=== PATIENT | female | born 1965 | race Caucasian/White ===

== ENCOUNTER 2016-12-23 20:38 | Emergency (ER) | payer MEDICAID ==
[~2016-12-23] VITALS: Ht 175.3 cm; Wt 125.2 kg
[~2016-12-23 20:38] MED LIST: ALPARAZOLAM0.5 MG PO; ASPIRIN ADULT L81 M2 PO; BENZONATATE100 MG PO; CARVEDILOL12.5 MG PO; CARVEDILOL6.25 MG PO; CIPRO 500MG TA500 MG PO; DICLOFENAC 50MG50 MG PO; DICYCLOMINE HYD20 MG PO; ESTRADIOL1 M1 PO; ETODOLAC400 MG PO; FLAGYL500 M1 PO; FUROSEMIDE40 MG PO; GABAPENTIN 600600 MG PO; HYDROCHLOROTHIA25 M1 PO; IMDUR 60MG. TAB60 MG PO; LISINOPRIL 5MG T5 MG PO; NON-ASPIRIN EX500 MG PO; NORCO 325 MG-51 TAB PO; OMEPRAZOLE40 MG PO; OXYBUTYNIN10 MG PO; PRAVASTATIN 40M40 MG PO; PREDNISONE 20MG20 MG PO; ROBAXIN500 M1 PO; TOPROL XL 25MG25 MG PO; TRAMADOL50 M1 PO; TRAZADONE HYDR100 MG PO; VOLTAREN75 MG PO; ZOFRAN ODT4 MG PO; [UNRECOGNIZED DRUG - OTHER] PO
[2016-12-23 21:17] LABS: HEMOGLOBIN 12.9 g/dL (12.2-16.2); LYMPH % 25.3 % (10-50.0)
--- NOTE | 2016-12-23 21:51 | Emergency Room Report ---
History of Present Illness Time Seen by [id number] Presenting Problem in Triage Pt arrived:Walked Presenting Problem:LEFT SIDED BACK PAIN RADIATING INTO FLANK AREA, STARTED AROUND 5:30 TODAY. 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 N Clinical Suspician of Infection? N Mental Status: 1 - Regular (Normal Baseline) Sepsis Risk:Possible Sepsis Risk Have you (or family members/close friends) recently traveled outside the [place]? N If Yes, where/when: Have you had exposure to infectious disease within the past month? N TB? Other? Specify: Source patient, RN notes reviewed, family, old records Exam Limitations no limitations Comment one day hx of lt sided back pain with dec mobility and pain with mov with no trauma or fever and no rash Cardiac Chest Pain Chest pain indicative of cardiac No Timing/Duration this evening Severity moderate ALLERGIES Coded Allergies: acetaminophen (From Darvocet-N) (Severe, S-[id number]/THROAT 10/06/15) propoxyphene (From Darvocet-N) (Severe, E-[id number]-BLDO/THROAT 10/06/15) oxycodone (From PERCOCET) (Intermediate, I-RASH 03/15/16) levofloxacin (I-RASH 10/06/15) Home Medications Active Scripts DICLOFENAC SODIUM (Diclofenac 50MG) 50 MG PO BID #60 TAB Prov: 06/16/16 Methocarbamol (Robaxin) 500 MG PO BID #60 TAB Prov: 06/16/16 Dicyclomine Hcl (Bentyl 20mg Tab (Generic)) 20 MG PO TIDP PRN abdominal pain #12 TAB Prov: 10/24/16 Ondansetron (Zofran 4MG Odt) 4 MG PO Q8HP PRN NAUSEA AND VOMITING #10 ODT Prov: 10/24/16 Reported Medications LISINOPRIL (Lisinopril) 20 MG PO DAILY Oxybutynin Chloride (Oxybutynin Chloride ER) 10 MG PO DAILY Omeprazole (Omeprazole 40MG) 40 MG PO DAILY Furosemide (Furosemide 40MG) 40 MG PO BID ISOSORBIDE MONONITRATE (Isosorbide Mononitrate ER) 60 MG PO DAILY Estradiol 2 MG PO DAILY #30 Gabapentin (Gabapentin 600MG) 600 MG PO Q8 #90 Aspirin 81 MG PO DAILY PRAVASTATIN SODIUM (Pravastatin Sodium) 40 MG PO QHS Carvedilol 12.5 MG PO BID #60 History Medical History General CAD? No Angina: No IN: No Hypertension? Yes Hyperlipidemia? Yes CHF? No DVT? No PE? No COPD? Yes Asthma? No Anemia? No GERD? Yes Gastric ulcers? No GI Bleed? No Hernia? Yes Thyroid Problems? No Hypothyroidism? No CVA? Yes Seizures? No Diabetes? No Renal Insuffiency? No End Stage Renal Disease? No UTI? No Stones? No BPH? No GB Disease: No Nephritic Syndrome? No Asplenia? No Hepatitis? No Sickle Cell Disease? No Arthritis? Yes Migraines? Yes Cataracts? No Glaucoma? No MRSA? No HIV? No TB? No Anxiety? Yes Depression? Yes Cancer? Yes Site: CERVICAL More? 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 Respiratory denies cough, denies shortness of breath, denies wheezing Cardiovascular denies chest pain, denies palpitations, denies syncope Gastrointestinal denies abdominal pain, denies diarrhea, denies vomiting Genitourinary denies: dysuria, frequency, hesitancy, hematuria. Musculoskeletal see HPI, back pain, denies joint pain, denies joint swelling, muscle pain, denies neck pain Skin denies rash Psychiatric/Neurological denies headache, denies seizure Physical Exam Vital Signs Vital Signs Date Time Temp Pulse Resp B/P Pulse O2 O2 Flow FiO2 Ox Delivery Rate 12/237 20 12/24 2155 97.4 74 18 127/93 96 12/232 20 10/07 2041 97.5 101 22 135/98 99 - WBC >12,000 or <4,000 or 10% bands? 2 or more SIRS Criteria Met? B/P:127/93 MAP:110 Creatinine >2.0? UA output<0.5ml/kg/hr for 2 hrs? Platelet count >100,000? Lactate >2.0mmol/1? INR >1.2 or PTT > than 60 sec? Evidence of Organ Dysfunction? Provider documented clinical suspician of infection? N Sepsis Criteria Count: 2 Sepsis Risk: Possible Sepsis Risk General Appearance no apparent distress Eye Exam - bilateral eye PERRL, bilateral eye EOMI Ear, Nose, Throat normal ENT inspection Neck supple Respiratory Status No: respiratory distress. Lung Sounds bilateral: lungs clear. 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 No Results/Orders Laboratory Tests 12/23/160: Urine Color YELLOW, Urine Appearance SL CLOUDY, Urine pH 6.0, Ur Specific [place] 1.025, Urine Protein NEGATIVE, Urine Ketones NEGATIVE, Urine Blood NEGATIVE, Urine Nitrate NEGATIVE, Urine Bilirubin NEGATIVE, Urine Urobilinogen 0.2, Ur Leukocyte Esterase NEGATIVE, Urine WBC 3-5, Ur Squamous Epith Cells 10- 20, Amorphous Sediment 2+, Urine Mucus 4+, Urine Glucose NEGATIVE 12/23/162054: Sodium 140, Potassium 4.0, Chloride 106, Carbon Dioxide 26, BUN 19 H, Creatinine 1.2 H, Estimated Creat Clear 110, Estimated GFR (MDRD) 47 L, Glucose 158 H, Calcium 8.5, Total Bilirubin 0.3, AST 16, ALT 20, Alkaline Phosphatase 85, Total Protein 6.6, Albumin 3.3 L, Globulin 3.3 H, Albumin/ Globulin Ratio 1.0 L, WBC 8.1, RBC 4.45, Hgb 12.9, Hct 40.6, MCV 91.3, RDW 13.8 , Plt Count 169, MPV 9.0, Gran % 67.5, Gran # 5.5, Lymphocytes % 25.3, Monocytes % 4.3, Eosinophils % 2.6, Basophils % 0.3, Lymphocytes # 2.0, Monocytes # 0.4, Eosinophils # 0.2, Basophils # 0.0, PUBS MCHC 31.7 L, MCH 28.9 Current Medication Orders Sig/Konstantin Start time Last Medication Dose Route Stop Time Status Admin Promethazine HCl 0 .STK-MED ONE 12/23 2234 DC .ROUTE Sodium Chloride 25 ML .STK-MED ONE 12/23 2234 DC IV Hydromorphone HCl 0 .STK-MED ONE 12/23 2233 DCr .ROUTE Methylprednisolone 0 .STK-MED ONE 12/23 2233 DC Sodium Succinate .ROUTE Hydromorphone HCl 1 MG ONCE ONE 12/23 2229 DCr 12/23 IV 12/23 Methylprednisolone 125 MG ONCE ONE 12/23 2229 DC 12/23 Sodium Succinate IV 12/23 Promethazine HCl 12.5 MG ONCE ONE 12/23 2229 DC 12/23 IV 12/23 Sodium Chloride 25 ML ONCE ONE 12/23 2229 DC 12/23 IV 12/23 Ketorolac 30 MG ONCE ONE 12/23 2099 DC 12/23 Tromethamine IV 12/23 Ondansetron HCl 4 MG 12/23 2099 UNi IV Sodium Chloride 10 ML PRN PRN 12/23 2099 AC IV 12/24 2050 Sodium Chloride 1,000 ML .Q1H1M 12/23 2099 DC 12/23 IV 12/23 Sodium Chloride 10 ML PRN PRN 12/23 2099 AC IV 12/24 2052 Ketorolac 0 .STK-MED ONE 12/23 2058 DC Tromethamine .ROUTE Sodium Chloride 1,000 ML .STK-MED ONE 12/23 2053 DC IV Orders Procedure Date/time Status DIET-NOTHING BY MOUTH 12/[address] ABD & PELVIS W/O CONTRAST 12/[address] ABD/PELVIS REQ 12/23 2056 Active IV SALINE LOCK 12/23 2050 Active URINALYSIS/COMPLETE 12/23 2050 Complete CBC WITH AUTO DIFF 12/23 2050 Complete CHEM 12 PROFILE 12/23 2050 Complete XRAY/CT/US XRAY/CT/US CT abdomen, pelvis CT interpretation by discussed w/radiologist Time results known: 8 CT Results normal/NAD Departure Departure Time of Disposition 0002 Disposition DC Home or Self Care(routine) Clinical Impression Primary Impression: Lumbar pain with radiation down both legs Condition STABLE Referrals ARTHUR JOSE (Family) Patient Instructions DI for Low Back Pain Additional Instructions use meds and see pcp sunday or sunday Discharge Counseling Counseled pt/family regarding diagnosis, test results, medications/RX, follow up needs Prescriptions Current Visit Scripts Prednisone (Prednisone 20MG) 20 MG PO BID #10 TAB Cyclobenzaprine Hcl (Flexeril) 10 MG PO BID #14 TAB HYDROCODONE/ACETAMINOPHEN ([place] 5-325 Tablet) 1 TAB PO Q6HP PRN pain #10 TAB ED Critical Care Critical Care No at 0005
[2016-12-23 23:49] LABS: URINE BILIRUBIN - DIPSTICK NEGATIVE (NEG); URINE BLOOD NEGATIVE (NEG)
[2016-12-24] MEDS ORDERED: NORCO 325 MG-51 TAB PO (00:05)
[2016-12-24] MEDS ORDERED: PREDNISONE 20MG20 MG PO (00:05)
[2016-12-24] MEDS ORDERED: FLEXERIL10 MG PO (00:05)
[2016-12-24 00:29] VITALS: BP 138/72
--- NOTE | 2016-12-24 08:41 | RADIOLOGY REPORT PS360 ---
CT ABD PELVIS W/O CONTRAST COMPARISON: CT scan abdomen pelvis 10/24/2016 HISTORY: Abdominal pain and left lower back pain TECHNIQUE: Multiple axial scans obtained from hemidiaphragms the pelvic floor and were performed without IV or oral contrast. Sagittal and coronal reformats were evaluated as well. FINDINGS: The lower lung white are clear. The liver spleen stomach [place] gallbladder appear grossly normal. The adrenal glands are normal. The kidneys are normal size and there are no calculi and is no obstructive uropathy. Small bowel appears normal. The appendix is normal. There is moderate scattered stool in ascending and transverse colon. There is been a previous hysterectomy. Urinary bladder is grossly normal, there is no free fluid in the pelvis. There is a tiny umbilical hernia containing fat only. IMPRESSION: No acute abdominal or pelvic pathology identified, I agree the [facility] report.
--- OUTSIDE RECORDS SUMMARY | 2016-12-29 16:37 | External Medical Summary Rpt | CCD ---
Author Author , AMRITA Organization AMRITA Address Unknown Phone [email or web address] Providers Care Demand Inspector Name Role Phone NGOC BARRERA JR, Unavailable Unavailable NGOC BARRERA JR, J, Unavailable Unavailable Eliel WOODSON BEINEKE, BEINEKE Unavailable Unavailable BEINEKE SHREYA BEINEKE Unavailable Unavailable SHREYA FRANCOIS OLGA LIDIA, FRANCOIS Unavailable Unavailable OLGA LIDIA BESSON ILEANA, BESSON Unavailable Unavailable ILEANA [facility] Unavailable [facility]available [facility], [facility] LANDEROS, LANDEROS Unavailable Unavailable LANDEROS ALL, LANDEROS ALL Unavailable Unavailable [facility] Unavailable Unavailable [facility], [facility] MARY BRAGG, Unavailable Unavailable MARY BRAGG CALVO Unavailable Unavailable [facility] Unavailable Unavailable [facility], [facility] JEREMY PEREZ, Unavailable Unavailable JEREMY ARRIOLA CELLAROSI - YORBA Unavailable Unavailable PAT, CELLAROSI - YORBA PAT VALLE MALCOM, VALLE Unavailable Unavailable MALCOM VALLE MALCOM, VALLE Unavailable Unavailable MALCOM [facility], Unavailable Unavailable [facility] JOVEL, ALAN A, Unavailable Unavailable JOVEL, ALAN A [facility] Unavailable Unavailable [facility], [facility] FILIBERTO JR YANNI, FILIBERTO Unavailable Unavailable JR YANNI FILIBERTO JR YANNI, FILIBERTO Unavailable Unavailable JR YANNI ROSENDO, ROSENDO Unavailable Unavailable ROSENDO GARETH, Unavailable Unavailable ROSENDO GARETH GARETT II THO, GARETT II Unavailable Unavailable THO GAERTT, T, GARETT, T Unavailable Unavailable DEPA, MARTINEZ, DEPA, Unavailable Unavailable MARTINEZ CLEVELANDYLE BENJAMIN, LEDESMA BENJAMIN Unavailable Unavailable BAZAN, G T, BAZAN, G Unavailable Unavailable T FALLUJI EDIN, FALLUJI Unavailable Unavailable EDIN FALLUJI EDIN, FALLUJI Unavailable Unavailable EDIN FRYMAN, FRYMAN Unavailable Unavailable JR FORD FULLER, Unavailable Unavailable JR ANGEL LUIS, ANGEL LUIS Unavailable Unavailable ANGEL LUIS KARLA, ANGEL LUIS Unavailable Unavailable KARLA ANGEL LUIS KARLA, ANGEL LUIS Unavailable Unavailable KARLA ELIO R HARPEL MD, Unavailable Unavailable ELIO RODRIGUEZ MD SAVANNA RHO, SAVANNA Unavailable Unavailable RHO SAVANNA, FORREST G, Unavailable Unavailable SAVANNA, FORREST G SIMONA CLEARY, Unavailable Unavailable SIMONA CLEARY HARPEL, HARPEL Unavailable Unavailable HARPEL IS[facility], HARPEL Unavailable Unavailable [facility] Un[facility] Un[facility], [facility], Unavailable Unavailable [facility] HORMANN MAR, HORMANN Unavailable Unavailable [facility] Unavailable Unavailable SERVICES O, [facility] HOUSMAN YANNI, HOUSMAN Unavailable Unavailable YANNI FU-ZACHARY, Unavailable Unavailable ROSLYN, TANK-ZACHARY, ROSLYN [facility] Unavailable Unavailable [facility]ING [facility], [facility] Un[facility], [facility] ARREDONDO ILEANA, ARREDONDO ILEANA Unavailable Unavailable ULLOA MARGARET, ULLOA Unavailable Unavailable MARGARET MARCHINO ILEANA, Unavailable Unavailable MARCHINO ILEANA [facility], Unavailable Unavailable [facility], [facility]available Unavailable [facility] Unavailable Unavailable EMS, [facility], Unavailable Unavailable PLLC, [facility] PICKLESIMER JR GIULIA, Unavailable Unavailable PICKLESIMER JR GIULIA PICKLESIMER JR GIULIA, Unavailable Unavailable [facility] GIULIA KAMERON TOD, KAMERON TOD Unavailable Unavailable RENUSCH, RENUSCH Unavailable Unavailable [id number], Unavailable Unavailable [id number] BOO KAYDEN, Unavailable Unavailable [facility] DIRK MAT, Unavailable Unavailable DIR[facility] MAT SOKAN BAB, SOKAN BAB Unavailable Unavailable SHAKA FELISHA, SHKAA Unavailable Unavailable FELISHA [facility] Unavailable Unavailable [facility], [facility] Unavailable Unavailable [facility], [facility] Unavailable Unavailable [facility] SHREYA [facility] Unavailable Unavailable EMERGENCY PHYS, [facility] Unavailable Unavailable EMERGENCY PHYSI, [facility] ALFREDITO, ALFREIDTO Unavailable Unavailable ALFREDITO SHE, Unavailable Unavailable ALFREDITO SHE ALANIZ OLGA LIDIA, Unavailable Unavailable ALANIZ OLGA LIDIA ALANIZ OLGA LIDIA, Unavailable Unavailable ALANIZ OLGA LIDIA SWINEY PAT, SWINEY Unavailable Unavailable PAT SWINEY PAT, SWINEY Unavailable Unavailable PAT [facility] Unavailable Unavailable #[id number], [phone] Unavailable Unavailable [id number], Unavailable Unavailable [facility] ASIF SHANKAR, Unavailable Unavailable ASIF SHANKAR Purpose Continuity of Care Document - 09-17-2007 through 2016 Problems Code Diagnosis DOS Provider Status R1030 LOWER 11-02-2016 [facility] ABDOMINAL PHYSICIANS PAIN GROUP UNSPECIFIED I10 ESSENTIAL 10-24-2016 [facility] HYPERTENSIO INC N K219 GASTRO-ESOP 10-24-2016 [facility] DISEASE INC WITHOUT ESOPHAGITIS R1011 RIGHT UPPER 10-24-2016 [place] [facility] R1013 EPIGASTRIC 10-24-2016 [facility] R1031 RIGHT LOWER 10-24-2016 [facility] PAIN [facility] Z720 TOBACCO USE 10-24-2016 [facility] E039 HYPOTHYROID 10-16-2016 [facility] ISM [facility] UNSPECIFIED INC K588 OTHER 09-04-2016 [facility] IRRITABLE PHYSICIANS BOWEL GROUP SYNDROME R102 PELVIC AND 09-04-2016 [facility] PERINEAL PHYSICIANS PAIN GROUP M5136 OTH 06-16-2016 [place] [facility] RAL DISC IMAGING ASS DEGEN LUMBAR REGION M5442 LUMBAGO 06-16-2016 [facility] WITH PHYSICIANS, SCIATICA PLLC LEFT SIDE M545 LOW BACK 06-16-2016 [place] PAIN [facility]ICAL [facility] C541OZO SPRAIN 06-16-2016 [facility] LIGAMENTS PHYSICIANS, LUMBAR PLLC SPINE INITIAL ENCOUNTER Z7982 SHELTER 06-16-2016 [facility]RENT [facility] G03682 HORMONE 06-16-2016 [facility] REPLACEMENT [facility] THERAPY INC J87141 OTHER LONG 06-16-2016 [facility] TERM [facility] CURRENT INC DRUG THERAPY Z886 ALLERGY 06-16-2016 [facility] STATUS TO [facility] ANALGESIC INC AGENT STATUS Z889 ALLERGY 06-16-2016 [facility] STATUS UNS [facility] RX MEDS & INC BIOLOG SUBSTANC STS M5116 INTERVERTEB 06-03-2016 [facility] RAL DISC PHYSICIANS, D/O PLLC W/RADICULOP ATHY LUMB RGN M5416 RADICULOPAT 06-03-2016 [facility] HY LUMBAR [facility] REGION INC D6191AU CONTUSION 03-15-2016 [facility] OF LEFT PHYSICIANS, LOWER LEG PLLC INITIAL ENCOUNTER D98278 PERSONAL 03-15-2016 [facility] HISTORY OF [facility] NICOTINE INC DEPENDENCE N951 MENOPAUSAL 01-31-2016 [facility] PHYS[facility]ANS CLIMACTERIC GROUP STATES H109 UNSPECIFIED 12-16-2015 [facility] EMERGENCY CONJUNCTIVI PHYS TIS G4733 OBSTRUCTIVE 11-25-2015 [facility] ADULT MEDICAL PEDIATRIC EQUIPME E860 DEHYDRATION 11-17-2015 [facility], [facility] R05 COUGH 11-17-2015 [facility] R079 CHEST PAIN 11-17-2015 [place] [facility]PECIFIED [facility] N179 ACUTE 11-16-2015 [facility] FAILURE SERVICES O UNSPECIFIED [id number] TOXIC 11-16-2015 [facility]OSPITAL EFFECT OT MEDICINE TOBACCO & SERVICES O NICOTINE ACC INIT ENC G629 POLYNEUROPA 11-14-2015 [facility] J449 CHRONIC 11-14-2015 [facility] DISEASE UNS N170 ACUTE RENAL 11-14-2015 [facility] WITH HOSPITAL TUBULAR NECROSIS R110 NAUSEA 11-14-2015 [facility] T600FEZ HEAT 11-14-2015 [facility] UNSPECIFIED PHYSI INITIAL ENCOUNTER L732 HIDRADENITI 11-09-2015 [facility] S PHYSICIANS SUPPURATIVA GROUP N736 FEMALE 10-21-2015 [facility] PELVIC PHYSICIANS PERITONEAL GROUP ADHESIONS POSTINFECTI VE R1032 LEFT LOWER 10-18-2015 [facility] QUADRANT PHYSICIANS PAIN GROUP K5900 CONSTIPATIO 10-07-2015 [facility] MEDICAL UNSPECIFIED IMAGING ASS R109 UNSPECIFIED 10-07-2015 [facility] ABDOMINAL ANESTH OF PAIN THE BLUE D481 NEOPLASM 08-05-2015 ELIO RODRIGUEZ MD [facility] CONNCTIVE & OTH SOFT TISS I083 COMB 08-03-2015 [facility] RHEUMAT D/O SERV [facility] FOUND[facility] AORTC & TRICUSPID VALVES I350 NONRHEUMATI 08-03-2015 [facility] [place] A[facility]IC [facility] VALVE INC STENOSIS N761 SUBACUTE 07-05-2015 [facility] AND CHRONIC PHYSICIANS VAGINITIS GROUP V58271 ENCOUNTER 07-05-2015 [facility] PREPROCEDUR INC AL LABORATORY EXAM E34328 ENCOUNTER 05-13-2015 ELIO Fry CHEESE BLENDER EXAM JENNIFER ESQUIVEL GENERAL RTN W/O ABNORMAL FIND Z1212 ENCOUNTER 05-13-2015 ELIO RORDIGUEZ MD MALIGNANT NEOPLASM RECTUM E785 HYPERLIPIDE 05-11-2015 [facility] QUINTIN PHYSICIANS UNSPECIFIED GROUP G4730 SLEEP APNEA 05-11-2015 [facility] PHYSICIANS UNSPECIFIED GROUP I119 HYPERTENSIV 05-11-2015 [facility] E HEART PHYSICIANS DISEASE GROUP WITHOUT HEART FAILURE I209 ANGINA 05-11-2015 [facility] PECTORIS PHYSICIANS UNSPECIFIED GROUP I2510 ASHD KONGIGANAK 05-11-2015 [facility] 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 GROUP ANGINA PECTORIS 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 R0600 DYSPNEA 05-11-2015 [facility] UNSPECIFIED PHYSICIANS GROUP E669 OBESITY 04-30-2015 [facility] UNSPECIFIED [facility] INC R9439 ABNORMAL 04-30-2015 [facility] RESULT OT [facility] CARDIOVASCU INC LR FUNCTION STUDY Z6841 BODY MASS 04-30-2015 [facility] INDEX BMI [facility] 40.0-44.9 INC ADULT S61174 ENCOUNTER 04-28-2015 [facility] FOR OTHER MEM [facility]OS[facility] PREPROCEDUR INC AL EXAMINATION K529 NONINFECTIV 04-05-2015 [facility] E PHYSICIANS, GASTROENTER PLLC ITIS & COLITIS UNS R0683 SNORING 04-05-2015 [facility] INC R5383 OTHER 04-05-2015 [facility] FATIGUE [facility] INC I712 THORACIC 04-01-2015 [facility] AORTIC SERV ANEURYSM FOUNDATION WITHOUT RUPTURE N8320 UNSPECIFIED 03-23-2015 [place] OVARIAN [facility]ICAL CYSTS IMAGING ASS N644 MASTODYNIA 03-05-2015 [facility] R928 OTH ABNORM 03-05-2015 [place] & MEDICAL INCONCLUSIV IMAGING ASS E FIND ON DX IMAG BREAST D164 BENIGN 01-11-2015 [facility] NEOPLASM OF PHYSICIANS BONES OF GROUP SKULL AND FACE N6452 NIPPLE 01-11-2015 [facility] DISCHARGE PHYSICIANS GROUP M899 DISORDER OF 12-18-2014 [place] BONE MEDICAL UNSPECIFIED IMAGING ASS R220 LOCALIZED 12-18-2014 [place] SWELLING MEDICAL MASS AND IMAGING ASS LUMP HEAD 217 BENIGN 11-26-2014 [facility] NEOPLASM OF PHYSICIANS BREAST GROUP 6101 DIFFUSE 11-26-2014 [facility] MASTOPATHY 6102 FIBROADENOS 11-26-2014 [facility] IS OF LLC BREAST 84584 OTHER SIGN 11-26-2014 [facility]UN[facility] AND SYMPTOM ANESTH OF IN BREAST THE BLUE 87945 OTHER 11-26-2014 [facility] SPECIFIED LLC DISORDERS OF BREAST 7062 SEBACEOUS 11-26-2014 [facility] CYST ANESTH OF THE BLUE 7820 DISTURBANCE 11-16-2014 [facility] OF SKIN PHYSICIANS SENSATION GROUP 5368 DYSPEPSIA&O 11-07-2014 [facility] THER SPEC N EMERGENCY DISORDERS PHYS FUNCTION STOMACH 01268 ABDOMINAL 11-07-2014 [facility] PAIN, LEFT N EMERGENCY UPPER PHYS QUADRANT 81911 OBST 10-23-2014 [facility] CHRONIC N EMERGENCY BRONCHITIS PHYS W/ACUTE BRONCHITIS 94705 SHORTNESS 10-23-2014 [facility] OF BREATH RADIOLOGY 4019 UNSPECIFIED 10-19-2014 [facility] ESSENTIAL [facility] N 462 ACUTE 10-19-2014 [facility] PHARYNGITIS [facility] 46748 ASTHMA, 10-19-2014 [facility] UNSPECIFIED N EMERGENCY , PHYS UNSPECIFIED STATUS 27553 WHEEZING 10-19-2014 [facility] N EMERGENCY PHYS 59651 CHEST PAIN 10-19-2014 [facility] UNSPECIFIED [facility] V145 PERSONAL 10-19-2014 [facility] HISTORY OF COMMUNITY ALLERGY TO HOSPITAL NARCOTIC AGENT V146 PERSONAL 10-19-2014 [facility]ISTORY OF COMM[facility]ITY ALLERGY TO HOSPITAL ANALGESIC AGENT V5866 LONG-TERM 10-19-2014 [facility] USE OF [facility] V5869 LONG-TERM 10-19-2014 [place] (CURRENT) COMMUNITY USE OF HOSPITAL OTHER MEDICATIONS 6110 INFLAMMATOR 09-24-2014 [facility] Y DISEASE PHYSICIANS OF BREAST GROUP 58126 MASTODYNIA 07-23-2014 [facility] 20275 OTHER 07-23-2014 [place] ABNORMAL MEDICAL FINDING IMAGING ASS RADIOLOGICA L EXAM BREAST 84997 PAIN IN 07-20-2014 [facility] JOINT PHYSICIANS PELVIC GROUP REGION AND THIGH 99843 HIDRADENITI 05-15-2014 [facility] 98888 OBESITY, 04-21-2014 [facility] UNSPECIFIED PHYSICIANS GROUP 7243 SCIATICA 04-21-2014 [facility] PHYSICIANS GROUP 4241 AORTIC 04-14-2014 [facility] VALVE [facility] DISORDERS INC 55565 OCCLUSION&S 04-14-2014 [facility] CAROTID ART CONSULTANTS W/O O MENTION INFARCT 496 CHRONIC 04-14-2014 [facility] AIRWAY LAR OBSTRUCTION CONSULTANTS NEC O 4259 UNSPECIFIED 04-09-2014 [facility] SECONDARY [facility] CARDIOMYOPA INC THY 4280 CONGESTIVE 04-09-2014 [facility] HEART [facility] FAILURE INC UNSPECIFIED 4359 UNSPECIFIED 04-09-2014 [place] TRANSIENT MEDICAL CEREBRAL IMAGING ASS ISCHEMIA 490 BRONCHITIS 04-09-2014 [facility] NOT [facility] SPECIFIED INC ACUTE OR CHRONIC 69855 SOLITARY 04-09-2014 [place] PULMONARY MEDICAL NODULE IMAGING ASS V1254 PERSONAL HX 04-09-2014 [facility] TIA & CI [facility] W/O INC RESIDUAL DEFICITS V198 FAMILY 04-09-2014 [facility] HISTORY OF [facility] OTHER INC CONDITION 4240 MITRAL 04-03-2014 [facility] DISORDERS [facility]OUNDATION 4242 TRICUSPID 04-03-2014 [facility]ORD[facility] SPEC NONRHEUMATI C 19986 OTHER 04-03-2014 [facility] SPECIFIED [facility] CONGENITAL INC ANOMALY HEART OTHER 98275 OTHER 04-03-2014 [facility] MEDICAL DYSPNEA AND SERV FOUNDATION RESPIRATORY ABNORMALITI ES V1749 FAMILY 03-31-2014 [facility] OTHER INC CARDIOVASCU LAR DISEASES 87642 CONGENITAL 03-24-2014 [facility] [place] OF L[place] [address] UNSPECIFIED 02-27-2014 [facility] INFECTIVE N EMERGENCY OTITIS PHYS EXTERNA 7245 UNSPECIFIED 02-25-2014 [facility] BACKACHE PHYSICIANS GROUP 13919 UNS ADVRS 02-25-2014 [facility] EFF OT RX PHYSICIANS MEDICINAL&B GROUP IOLOGICAL SBSTNC 3670 HYPERMETROP 02-23-2014 [facility] 6822 CELLULITIS 01-21-2014 [facility] AND ABSCESS N EMERGENCY OF TRUNK PHYS 63739 PAIN IN 12-29-2013 [facility] JOINT, SITE PHYSICIANS GROUP UNSPECIFIED 7852 UNDIAGNOSED 10-02-2013 [facility] EDIN CARDIAC MURMURS 1120 CANDIDIASIS 07-18-2013 [facility] OF MOUTH [facility] INC 7296 RESIDUAL 07-18-2013 ANGEL LUIS MIC FOREIGN BODY IN SOFT TISSUE 586 UNSPECIFIED 07-11-2013 [facility] RENAL [facility] 6824 CELLULITIS& 07-11-2013 SW[facility] PAT ABSCESS OF HAND EXCEPT FINGERS&MICHELLE MB 9146 HND NO 07-11-2013 [facility] PAT FINGR SUP FB W/O GRANT OPN WND&W/O INF 9147 HAND NO 07-11-2013 [facility] F[facility]R [facility] SUP FB W/O HOSPITAL GRANT OPN WOUND INF E915 FOREIGN 07-11-2013 SW[facility] PAT BODY ACCIDENTALL Y ENTERING OTHER ORIFICE 6250 DYSPAREUNIA 07-03-2013 [facility] MALCOM 6259 UNSPEC 07-03-2013 [facility] MALCOM SYMPTOM ASSOC W/FEMALE GENITAL ORGANS 6273 POSTMENOPAU 07-03-2013 [facility] MALCOM FREDRICK ATROPHIC VAGINITIS V7231 ROUTINE 07-03-2013 [facility] GIULIA AL EXAMINATION 24957 COR 06-19-2013 FILIBERTO HOFFMANN ATHEROSLERO YANNI UNSPEC TYPE VESSEL KONGIGANAK/NEW T 95482 UNSPECIFIED 06-19-2013 FILIBERTO HOFFMANN YANNI ARTHROPATHY SITE UNSPECIFIED 98850 MIXED 06-19-2013 FILIBERTO HOFFMANN INCONTINENC YANNI E URGE AND STRESS 23670 ABDOMINAL 05-03-2013 [facility] PAIN RIGHT OLGA LIDIA LOWER QUADRANT 32785 PAINFUL 04-19-2013 [facility] PAT RESPIRATION 2449 UNSPECIFIED 08-06-2008 SCHULSTAD, KAYDEN HYPOTHYROID ISM 6823 CELLULITIS 08-06-2008 SCHULSTAD, AND ABSCESS KAYDEN OF UPPER ARM AND FOREARM 7241 PAIN IN 06-19-2008 [facility] PSC 8471 THORACIC 06-19-2008 [facility] SPR[facility] PSC 8472 LUMBAR 06-19-2008 [facility] 4011 ESSENTIAL 05-27-2008 [facility] HYPERTENSIO HEALTH N, BENIGN ASSOCIATES PSC 4660 ACUTE 03-27-2008 [facility] BRONCHITIS HE[facility] PSC 1105 DERMATOPHYT 03-04-2008 [facility] OSIS OF THE HEALTH BODY [facility]OC[facility] PSC 7231 CERVICALGIA 11-11-2007 [facility] 82734 ABDOMINAL 11-11-2007 [facility] [place] PAIN, RADIOLOGY UNSPECIFIED SITE 29275 UNSPECIFIED 11-05-2007 [facility] N PSC 79778 ESOPHAGEAL 10-31-2007 [place] [facility]IA [facility] PSC 5533 DIAPHRAGMAT 10-31-2007 [facility] FLORA W/O NKLIN, MENTION ROSLYN OBSTRUCTION /GANGREN 45621 ABDOMINAL 10-31-2007 [facility] PAIN, NKLIN, EPIGASTRIC ROSLYN 81709 ABDOMINAL 10-02-2007 [facility] [place] PAIN RIGHT RADIOLOGY UPPER QUADRANT 28165 NAUSEA WITH 09-27-2007 [facility] [place] VOMITING RAD[facility] 67326 OTHER&UNSPE 09-25-2007 [facility] CIFIED DISC [facility]ALTH DISORDER [facility]OC[facility] OF LUMBAR PSC REGION 2720 PURE 09-24-2007 [facility] HYPERCHOLES [facility] TEROLEMIA [facility] 2777 DYSMETABOLI 09-24-2007 [facility] C SYNDROME [facility] 31425 OTHER 09-24-2007 [facility] V7612 OTHER 09-24-2007 [facility] [place] SCREENING RADIOLOGY MAMMOGRAM 7865 CHEST PAIN 09-19-2007 [facility] Medications Na ND Rx Da Fi Fi Am Da Di Ph RX Ph St me C No te ll ll ou ys ag ar # ys at rm s nt no ma ic us Or Da si cy ia de te s n re d RO 43 09 12 16 30 00 EA Ac PI 54 -0 -[address] ti NI 70 - 9 00 SI ve RO 27 20 20 49 DE LE 11 17 17 61 0 87 PH HC AR L MA 2 CY MG OF TA CY BL NT ET HI AN A IN C FL 50 11 25 29 30 00 EA Ac UO 11 -0 -[address] ti XE 10 00 SI ve TI 64 20 20 49 DE NE 80 17 17 61 3 88 PH HC AR L MA 20 CY MG OF CY CA NT PS HI UL AN E A IN C IB 53 09 30 00 EA Ac UP 74 -0 -[address] ti RO 60 00 SI ve FE 46 20 20 49 DE N 50 17 17 61 60 5 89 PH 0 AR MG MA CY TA BL OF ET CY NT HI AN A IN C LE 00 11 25 29 30 00 EA Ac VO 37 -0 -[address] ti TH 81 00 SI ve YR 80 20 20 49 DE OX 37 17 17 61 IN 7 90 PH E AR 50 MA CY MC G OF TA CY BL NT ET HI AN A IN C GA 16 11 25 89 30 00 EA Ac BA 71 -0 -[address] ti PE 40 00 SI ve NT 33 20 20 49 DE IN 20 17 17 62 2 16 PH 80 AR 0 MA MG CY TA OF BL CY ET NT HI AN A IN C IA 55 09 30 30 00 EA Ac AV 11 -0 -[address] ti 10 00 SI ve TA 23 20 20 49 DE TI 10 17 17 61 N 5 86 PH SO AR DI MA UM CY 40 OF CY MG NT HI TA AN B A IN C 00 11 25 29 30 00 EA Ac PI 60 -0 -[address] ti RI 30 00 SI ve N 02 20 20 49 DE EC 62 17 17 61 2 85 PH 81 AR MA MG CY TA OF BL CY ET NT HI AN A IN C CA 00 09 09 60 30 00 EA Ac RV 09 -0 -[address] ti ED 37 2- 9- 00 00 SI ve IL 29 20 20 49 DE OL 50 17 17 61 1 84 PH 12 AR .5 MA CY MG OF TA CY BL NT ET HI AN A IN C LI 00 09 09 30 30 00 EA Ac SI 18 -0 -[address] ti NO 50 2- 9- 00 00 SI ve IA 62 20 20 49 DE IL 01 17 17 61 0 83 PH 20 AR MA MG CY TA OF BL CY ET NT HI AN A IN C HY 59 09 09 30 [address] 74 -0 -[address] ti OC 60 2- 9- 00 00 SI ve HL 38 20 20 49 DE OR 21 17 17 61 OT 0 82 PH HI AR AZ MA ID CY E 12 OF .5 CY NT MG HI AN CP A IN C OM 62 09 09 30 30 00 EA Ac EP 17 -0 -[address] ti RA 50 2- 9- 00 00 SI ve ZO 13 20 20 49 DE LE 64 17 [address] AR MA 40 CY MG OF CY CA NT PS HI UL AN E A IN C ES 00 09 09 30 30 00 EA Ac TR 37 -0 -[address] ti AD 81 3- 9- 00 00 SI ve IO 45 20 20 50 DE L 40 17 17 01 1 5 97 PH MG AR MA TA CY BL ET OF CY NT HI AN A IN C DI 00 08 09 12 4 00 WA Ac CY 52 -0 -0 .0 00 L- ti CL 71 8- 1- 00 07 MA ve OM 28 20 20 50 RT IN 20 17 17 30 E 1 45 PH 20 AR MA MG CY TA #5 BL 91 ET ON 57 08 09 10 4 00 WA Ac DA 23 -0 -0 .0 00 L- ti NS 70 8- 1- 00 07 MA ve ET 07 20 20 50 RT RO 71 17 17 30 N 0 42 PH OD AR T MA 4 CY MG #5 TA 91 BL ET CE 65 07 08 40 10 00 EA Ac PH 86 -3 -[address] ti AL 20 1- 5- 00 00 SI ve EX 01 20 20 49 DE IN 90 17 17 61 5 91 PH 50 AR 0 MA MG CY CA OF PS CY UL NT E HI AN A IN C LE 00 07 08 30 30 00 EA Ac VO 37 -3 -[address] ti TH 81 1- 5- 00 00 SI ve YR 80 20 20 49 DE OX 37 17 17 61 IN 7 90 PH E AR 50 MA CY MC G OF TA CY BL NT ET HI AN A IN C IB 53 07 08 90 30 00 EA Ac UP 74 -3 -[address] ti RO 60 1- 5- 00 SI ve FE 46 20 20 49 DE N 50 17 17 61 60 5 89 PH 0 AR MG MA CY TA BL OF ET CY NT HI AN A IN C FL 50 07 08 30 30 00 EA Ac UO 11 -3 -[address] ti XE 10 1- 5- 00 SI ve TI 64 20 20 49 DE NE 80 17 17 61 3 88 PH HC AR L MA 20 CY MG OF CY CA NT PS HI UL AN E A IN C RO 43 07 08 30 30 00 EA Ac PI 54 -3 -[address] ti NI 70 1- 5- 00 SI ve RO 27 20 20 49 DE LE 11 17 17 61 0 87 PH HC AR L MA 2 CY MG OF TA CY BL NT ET HI AN A IN C IA 55 07 08 30 30 00 EA Ac AV 11 -3 -[address] ti 10 1- 5- 00 SI ve TA 23 20 20 49 DE TI 10 17 17 61 N 5 86 PH SO AR DI MA UM CY 40 OF CY MG NT HI TA AN B A IN C CA 00 07 08 60 30 00 EA Ac RV 09 -3 -[address] ti ED 37 1- 5- 00 SI ve IL 29 20 20 49 DE OL 50 17 17 61 1 84 PH 12 AR .5 MA CY MG OF TA CY BL NT ET HI AN A IN C LI 00 07 08 30 30 00 EA Ac SI 18 -3 -[address] ti NO 50 1- 5- 00 00 SI ve IA 62 20 20 49 DE IL 01 17 17 61 0 83 PH 20 AR MA MG CY TA OF BL CY ET NT HI AN A IN C HY 59 07 08 30 [address] 74 -3 -[address] ti OC 60 1- 5- 00 00 SI ve HL 38 20 20 49 DE OR 21 17 17 61 OT 0 82 PH HI AR AZ MA ID CY E 12 OF .5 CY NT MG HI AN CP A IN C OM 62 07 08 30 30 00 EA Ac EP 17 -3 -[address] ti RA 50 1- 5- 00 00 SI ve ZO 13 20 20 49 DE LE 64 17 [address] AR MA 40 CY MG OF CY CA NT PS HI UL AN E A IN C NI 43 07 08 30 00 EA Ac TR 59 -3 -[address] ti OG 80 1- 5- 00 00 SI ve LY 43 20 20 49 DE CE 61 17 17 61 RI 1 79 PH N AR 0. MA 4 CY MG OF TA CY BL NT ET HI AN SL A IN C 00 08 30 00 EA Ac PI 60 -3 -[address] ti RI 30 1- 5- 00 00 SI ve N 02 20 20 49 DE EC 62 17 17 61 2 85 PH 81 AR MA MG CY TA OF BL CY ET NT HI AN A IN C GA 16 07 08 90 30 00 EA Ac BA 71 -3 -[address] ti PE 40 1- 5- 00 00 SI ve NT 33 20 20 49 DE IN 20 17 17 62 2 16 PH 80 AR 0 MA MG CY TA OF BL CY ET NT HI AN A IN C HY 59 07 07 30 [address] 74 -0 -[address] ti OC 60 5- 8- 00 00 SI ve HL 38 20 20 48 DE OR 21 17 17 63 OT 0 24 PH HI AR AZ MA ID CY E 12 OF .5 CY NT MG HI AN CP A IN C LE 00 09 22 30 30 00 EA Ac VO 37 -0 -[address] ti TH 81 5- 8- 00 00 SI ve YR 80 20 20 48 DE OX 37 17 17 63 IN 7 23 PH E AR 50 MA CY MC G OF TA CY BL NT ET HI AN A IN C IB 53 07 07 90 30 00 EA Ac UP 74 -0 -[address] ti RO 60 5- 8- 00 00 SI ve FE 46 20 20 48 DE N 50 17 17 63 60 5 22 PH 0 AR MG MA CY TA BL OF ET CY NT HI AN A IN C FL 50 07 07 30 30 00 EA Ac UO 11 -0 -[address] ti XE 10 5- 8- 00 00 SI ve TI 64 20 20 48 DE NE 80 17 17 63 3 20 PH HC AR L MA 20 CY MG OF CY CA NT PS HI UL AN E A IN C BU 00 07 07 60 30 00 EA Ac IA 18 -0 -[address] ti OP 50 5- 8- 00 00 SI ve IO 41 20 20 49 DE N 06 17 17 22 HC 0 84 PH L AR SR MA CY 10 0 OF MG CY NT TA HI BL AN ET A IN C LI 30 30 00 EA Ac SI 18 -0 -[address] ti NO 50 5- 8- 00 00 SI ve IA 62 20 20 49 DE IL 01 17 17 23 0 41 PH 20 AR MA MG CY TA OF BL CY ET NT HI AN A IN C 30 30 00 EA Ac PI 60 -2 -[address] ti RI 30 2- 1- 00 00 SI ve N 02 20 20 46 DE EC 62 17 17 48 2 79 PH 81 AR MA MG CY TA OF BL CY ET NT HI AN A IN C ES 30 00 EA Ac TR 37 -2 -[address] ti AD 81 2- 1- 00 00 SI ve IO 45 20 20 49 DE L 40 17 17 21 1 5 58 PH MG AR MA TA CY BL ET OF CY NT HI AN A IN C GA 16 08 22 90 30 00 EA Ac BA 71 -0 -[address] ti PE 40 4- 0- 00 00 SI ve NT 33 20 20 48 DE IN 20 17 17 60 2 07 PH 80 AR 0 MA MG CY TA OF BL CY ET NT HI AN A IN C CA 00 07 22 60 30 00 EA Ac RV 09 -3 -[address] ti ED 37 0- 3- 00 00 SI ve IL 29 20 20 47 DE OL 50 17 17 54 1 47 PH 12 AR .5 MA CY MG OF TA CY BL NT ET HI AN A IN C LI 30 30 00 EA Ac SI 18 -3 -2 .0 00 ST ti NO 50 0- 3- 00 00 SI ve IA 62 20 20 47 DE [place] 01 17 17 54 0 46 PH 20 AR MA MG CY TA OF BL CY ET NT HI AN A IN C LE 30 30 00 EA Ac VO 37 -3 -[address] ti TH 81 0- 3- 00 00 SI ve YR 80 20 20 48 DE OX 37 17 17 63 IN 7 23 PH E AR 50 MA CY MC G OF TA CY BL NT ET HI AN A IN C IB 53 05 06 90 30 00 EA Ac UP 74 -3 -[address] ti RO 60 0- 3- 00 00 SI ve FE 46 20 20 48 DE N 50 17 17 63 60 5 22 PH 0 AR MG MA CY TA BL OF ET CY NT HI AN A IN C HY 59 05 06 30 [address] 74 -3 -[address] ti OC 60 0- 3- 00 00 SI ve HL 38 20 20 48 DE OR 21 17 17 63 OT 0 24 PH HI AR AZ MA ID CY E 12 OF .5 CY NT MG HI AN CP A IN C FL 50 05 06 30 30 00 EA Ac UO 11 -3 -[address] ti XE 10 0- 3- 00 00 SI ve TI 64 20 20 48 DE NE 80 17 17 63 3 20 PH HC AR L MA 20 CY MG OF CY CA NT PS HI UL AN E A IN C IA 55 05 06 30 30 00 EA Ac AV 11 -3 -[address] ti 10 0- 3- 00 00 SI ve TA 23 20 20 48 DE TI 10 17 17 63 N 5 18 PH SO AR DI MA UM CY 40 OF CY MG NT HI TA AN B A IN C OM 62 05 30 30 00 EA Ac EP 17 -3 -[address] ti RA 50 0- 3- 00 00 SI ve ZO 13 20 20 48 DE LE 64 17 17 [address] AR MA 40 CY MG OF CY CA NT PS HI UL AN E A IN C BU 00 05 60 30 00 EA Ac IA 18 -3 -[address] ti OP 50 0- 3- 00 00 SI ve IO 41 20 20 48 DE N 06 17 17 63 HC 0 41 PH L AR SR MA CY 10 0 OF MG CY NT TA HI BL AN ET A IN C RO 43 05 06 30 30 00 EA Ac PI 54 -3 -[address] ti NI 70 0- 3- 00 00 SI ve RO 27 20 20 48 DE LE 11 17 17 63 0 21 PH HC AR L MA 2 CY MG OF TA CY BL NT ET HI AN A IN C GA 16 05 06 90 30 00 EA Ac BA 71 -0 -[address] ti PE 40 5- 2- 00 00 SI ve NT 33 20 20 48 DE IN 20 17 17 60 2 07 PH 80 AR 0 MA MG CY TA OF BL CY ET NT HI AN A IN C ES 00 05 05 30 30 00 EA Ac TR 37 -0 -[address] ti AD 81 3- 6- 00 00 SI ve IO 45 20 20 48 DE L 40 17 17 25 1 5 42 PH MG AR MA TA CY BL ET OF CY NT HI AN A IN C BU 00 04 04 60 30 00 EA Ac IA 18 -0 -[address] ti OP 50 4- 8- 00 00 SI ve IO 41 20 20 48 DE N 06 17 17 24 HC 0 66 PH L AR SR MA CY 10 0 OF MG CY NT TA HI BL AN ET A IN C LE 00 04 04 30 30 00 EA Ac VO 37 -0 -[address] ti TH 81 5- 8- 00 00 SI ve YR 80 20 20 46 DE OX 37 17 17 48 IN 7 90 PH E AR 50 MA CY MC G OF TA CY BL NT ET HI AN A IN C GA 16 04 04 90 30 00 EA Ac BA 71 -0 -[address] ti PE 40 5- 8- 00 00 SI ve NT 33 20 20 47 DE IN 20 17 17 54 2 52 PH 80 AR 0 MA MG CY TA OF BL CY ET NT HI AN A IN C IB 53 04 04 90 30 00 EA Ac UP 74 -0 -[address] ti RO 60 5- 8- 00 00 SI ve FE 46 20 20 46 DE N 50 17 17 48 60 5 84 PH 0 AR MG MA CY TA BL OF ET CY NT HI AN A IN C IA 55 04 04 30 30 00 EA Ac AV 11 -0 -[address] ti 10 5- 8- 00 00 SI ve TA 23 20 20 46 DE TI 10 17 17 48 N 5 80 PH SO AR DI MA UM CY 40 OF CY MG NT HI TA AN B A IN C HY 59 04 04 30 [address] 74 -0 -[address] ti OC 60 5- 8- 00 00 SI ve HL 38 20 20 46 DE OR 21 17 17 48 OT 0 76 PH HI AR AZ MA ID CY E 12 OF .5 CY NT MG HI AN CP A IN C RO 43 04 04 30 30 00 EA Ac PI 54 -0 -[address] ti NI 70 5- 8- 00 00 SI ve RO 27 20 20 46 DE LE 11 17 17 48 0 83 PH HC AR L MA 2 CY MG OF TA CY BL NT ET HI AN A IN C OM 62 04 04 30 30 00 EA Ac EP 17 -0 -[address] ti RA 50 5- 8- 00 00 SI ve ZO 13 20 20 46 DE LE 64 17 [address] AR MA 40 CY MG OF CY CA NT PS HI UL AN E A IN C FL 00 04 04 30 30 00 EA Ac UO 78 -0 -[address] ti XE 12 5- 8- 00 00 SI ve TI 82 20 20 46 DE NE 21 17 17 48 0 81 PH HC AR L MA 20 CY MG OF CY CA NT PS HI UL AN E A IN C CA 00 04 04 60 30 00 EA Ac RV 09 -0 -[address] ti ED 37 5- 8- 00 00 SI ve IL 29 20 20 47 DE OL 50 17 17 54 1 47 PH 12 AR .5 MA CY MG OF TA CY BL NT ET HI AN A IN C LI 43 04 04 30 30 00 EA Ac SI 54 -0 -[address] ti NO 70 5- 8- 00 SI ve IA 35 20 20 47 DE IL 41 17 17 54 1 46 PH 20 AR MA MG CY TA OF BL CY ET NT HI AN A IN C ES 00 04 04 30 30 00 EA Ac TR 37 -0 -[address] ti AD 81 5- 8- 00 SI ve IO 45 20 20 48 DE L 40 17 17 25 1 5 42 PH MG AR MA TA CY BL ET OF CY NT HI AN A IN C ME 00 03 04 60 30 00 EA Ac TH 60 -3 -[address] ti OC 34 1- 8- 00 00 SI ve AR 48 20 20 48 DE BA 52 17 17 19 MO 8 94 PH L AR 50 MA 0 CY MG OF TA CY BL NT ET HI AN A IN C ME 29 03 04 30 30 00 EA Ac LO 30 -3 -[address] ti XI 00 1- 8- 00 00 SI ve CA 12 20 20 48 DE M 51 17 17 20 15 0 12 PH AR MG MA CY TA BL OF ET CY NT HI AN A IN C HY 00 03 04 [address] 40 -1 -[address] ti OC 60 9- 4- 00 00 SI ve OD 12 20 20 48 DE ON 30 17 17 02 -A 5 84 PH CE AR TA MA OR CY NO PH OF EN CY NT 5- HI 32 AN 5 A IN C IA 00 03 04 10 5 00 EA Ac ED 59 -1 -[address] ti NI 15 9- 4- 00 00 SI ve SO 44 20 20 48 DE NE 30 17 17 02 1 78 PH 20 AR MA MG CY TA OF BL CY ET NT HI AN A IN C CA 00 03 03 60 30 00 EA Ac RV 09 -0 -[address] ti ED 37 7- 1- 00 00 SI ve IL 29 20 20 47 DE OL 50 17 17 54 1 47 PH 12 AR .5 MA CY MG OF TA CY BL NT ET HI AN A IN C LI 00 05 19 30 30 00 EA Ac SI 18 -0 -[address] ti NO 50 7- - 00 SI ve IA 62 20 20 47 DE IL 01 17 17 54 0 46 PH 20 AR MA MG CY TA OF BL CY ET NT HI AN A IN C LE 00 03 03 30 30 00 EA Ac VO 37 -0 -[address] ti TH 81 7- - 00 SI ve YR 80 20 20 46 DE OX 37 17 17 48 IN 7 90 PH E AR 50 MA CY MC G OF TA CY BL NT ET HI AN A IN C RO 43 03 30 30 00 EA Ac PI 54 -0 -[address] ti NI 70 7- - 00 00 SI ve RO 27 20 20 46 DE LE 11 17 17 48 0 83 PH HC AR L MA 2 CY MG OF TA CY BL NT ET HI AN A IN C FL 00 05 19 30 30 00 EA Ac UO 78 -0 -[address] ti XE 12 7- - 00 SI ve TI 82 20 20 46 DE NE 21 17 17 48 0 81 PH HC AR L MA 20 CY MG OF CY CA NT PS HI UL AN E A IN C IA 55 03 03 30 30 00 EA Ac AV 11 -0 -[address] ti 10 7- 00 SI ve TA 23 20 20 46 DE TI 10 17 17 48 N 5 80 PH SO AR DI MA UM CY 40 OF CY MG NT HI TA AN B A IN C 00 03 03 30 30 00 EA Ac PI 60 -0 -[address] ti RI 30 7- - 00 SI ve N 02 20 20 46 DE EC 62 17 17 48 2 79 PH 81 AR MA MG CY TA OF BL CY ET NT HI AN A IN C HY 59 03 03 30 [address] 74 -0 -[address] ti OC 60 7- 1- 00 00 SI ve HL 38 20 20 46 DE OR 21 17 17 48 OT 0 76 PH HI AR AZ MA ID CY E 12 OF .5 CY NT MG HI AN CP A IN C OM 62 03 03 30 30 00 EA Ac EP 17 -0 -[address] ti RA 50 7- 1- 00 00 SI ve ZO 13 20 20 46 DE LE 64 17 17 [address] AR MA 40 CY MG OF CY CA NT PS HI UL AN E A IN C GA 16 05 19 90 30 00 EA Ac BA 71 -0 -[address] ti PE 40 7- 1- 00 00 SI ve NT 33 20 20 47 DE IN 20 17 17 54 2 52 PH 80 AR 0 MA MG CY TA OF BL CY ET NT HI AN A IN C IB 53 03 03 90 30 00 EA Ac UP 74 -0 -[address] ti RO 60 7- 1- 00 00 SI ve FE 46 20 20 46 DE N 50 17 17 48 60 5 84 PH 0 AR MG MA CY TA BL OF ET CY NT HI AN A IN BU 00 03 03 60 30 00 EA Ac IA 18 -0 -[address] ti OP 50 7- 1- 00 00 SI ve IO 41 20 20 47 DE N 06 17 17 87 HC 0 75 PH L AR SR MA CY 10 0 OF MG CY NT TA HI BL AN ET A IN ES 00 02 03 30 30 00 EA Ac TR 37 -1 -[address] ti AD 81 7- 7- 00 00 SI ve IO 45 20 20 45 DE L 40 17 17 34 1 5 25 PH MG AR MA TA CY BL ET OF CY NT HI AN A IN C BU 00 02 03 60 30 00 EA Ac IA 18 -0 -[address] ti OP 50 9- 0- 00 00 SI ve IO 41 20 20 47 DE N 06 17 17 55 HC 0 75 PH L AR SR MA CY 10 0 OF MG CY NT TA HI BL AN ET A IN C GA 16 02 03 90 30 00 EA Ac BA 71 -0 -[address] ti PE 40 8- 3- 00 00 SI ve NT 33 20 20 47 DE IN 20 17 17 54 2 52 PH 80 AR 0 MA MG CY TA OF BL CY ET NT HI AN A IN C IB 53 02 03 90 30 00 EA Ac UP 74 -0 -[address] ti RO 60 8- 3- 00 00 SI ve FE 46 20 20 46 DE N 50 17 17 48 60 5 84 PH 0 AR MG MA CY TA BL OF ET CY NT HI AN A IN C LE 00 04 21 29 30 00 EA Ac VO 37 -0 -[address] ti TH 81 8- 3- 00 00 SI ve YR 80 20 20 46 DE OX 37 17 17 48 IN 7 90 PH E AR 50 MA CY MC G OF TA CY BL NT ET HI AN A IN C CA 00 03 20 59 30 00 EA Ac RV 09 -2 -[address] ti ED 37 4- 7- 00 00 SI ve IL 29 20 20 46 DE OL 50 17 17 48 1 78 PH 12 AR .5 MA CY MG OF TA CY BL NT ET HI AN A IN C LI 00 EA Ac SI 18 -2 -[address] ti NO 50 4- 7- 00 00 SI ve IA 62 20 20 46 DE IL 01 17 17 48 0 77 PH 20 AR MA MG CY TA OF BL CY ET NT HI AN A IN C FL 00 00 EA Ac UO 78 -2 -[address] ti XE 12 4- 7- 00 00 SI ve TI 82 20 20 46 DE NE 21 17 17 48 0 81 PH HC AR L MA 20 CY MG OF CY CA NT PS HI UL AN E A IN C RO 43 00 EA Ac PI 54 -2 -[address] ti NI 70 4- 7- 00 00 SI ve RO 27 20 20 46 DE LE 11 17 17 48 0 83 PH HC AR L MA 2 CY MG OF TA CY BL NT ET HI AN A IN C OM 62 03 20 29 30 00 EA Ac EP 17 -2 -[address] ti RA 50 4- 7- 00 00 SI ve ZO 13 20 20 46 DE LE 64 17 17 [address] AR MA 40 CY MG OF CY CA NT PS HI UL AN E A IN C HY 59 03 20 [address] 74 -2 -[address] ti OC 60 4- 7- 00 00 SI ve HL 38 20 20 46 DE OR 21 17 17 48 OT 0 76 PH HI AR AZ MA ID CY E 12 OF .5 CY NT MG HI AN CP A IN C 00 03 20 29 30 00 EA Ac PI 60 -2 -[address] ti RI 30 4- 7- 00 00 SI ve N 02 20 20 46 DE EC 62 17 17 48 2 79 PH 81 AR MA MG CY TA OF BL CY ET NT HI AN A IN C IA 55 03 20 29 30 00 EA Ac AV 11 -2 -[address] ti 10 4- 7- 00 00 SI ve TA 23 20 20 46 DE TI 10 17 17 48 N 5 80 PH SO AR DI MA UM CY 40 OF CY MG NT HI TA AN B A IN C LE 00 03 20 29 30 00 EA Ac VO 37 -2 -[address] ti TH 81 4- 7- 00 00 SI ve YR 80 20 20 46 DE OX 01 17 17 51 IN 0 76 PH E AR 25 MA CY MC G OF TA CY BL NT ET HI AN A IN C GA 16 03 20 89 30 00 EA Ac BA 71 -1 -[address] ti PE 40 1- 3- 00 00 SI ve NT 33 20 20 46 DE IN 00 17 17 48 1 85 PH 60 AR 0 MA MG CY TA OF BL CY ET NT HI AN A IN C LE 00 02 17 30 30 00 EA Ac VO 37 -3 -[address] ti TH 81 0- 3- 00 00 SI ve YR 80 20 20 46 DE OX 01 16 17 51 IN 0 76 PH E AR 25 MA CY MC G OF TA CY BL NT ET HI AN A IN C RO 43 02 16 30 30 00 EA Ac PI 54 -1 -[address] ti NI 70 0- 3- 00 00 SI ve RO 27 20 20 46 DE LE 11 16 17 27 0 14 PH HC AR L MA 2 CY MG OF TA CY BL NT ET HI AN A IN C FL 00 02 16 30 30 00 EA Ac UO 78 -1 -[address] ti XE 12 0- 3- 00 00 SI ve TI 82 20 20 46 DE NE 21 16 17 27 0 19 PH HC AR L MA 20 CY MG OF CY CA NT PS HI UL AN E A IN C IA 55 02 16 30 30 00 EA Ac AV 11 -1 -[address] ti 10 0- 3- 00 00 SI ve TA 23 20 20 46 DE TI 10 16 17 27 N 5 18 PH SO AR DI MA UM CY 40 OF CY MG NT HI TA AN B A IN C 00 02 16 30 30 00 EA Ac PI 60 -1 -[address] ti RI 30 0- 3- 00 00 SI ve N 02 20 20 46 DE EC 62 16 17 27 2 17 PH 81 AR MA MG CY TA OF BL CY ET NT HI AN A IN C HY 59 12 [address] 74 -1 -[address] ti OC 60 0- 3- 00 00 SI ve HL 38 20 20 46 DE OR 21 16 17 27 OT 0 16 PH HI AR AZ MA ID CY E 12 OF .5 CY NT MG HI AN CP A IN C OM 62 12 30 30 00 EA Ac EP 17 -1 -[address] ti RA 50 0- 3- 00 00 SI ve ZO 13 20 20 46 DE LE 64 16 [address] AR MA 40 CY MG OF CY CA NT PS HI UL AN E A IN C GA 16 12 90 30 00 EA Ac BA 71 -1 -[address] ti PE 40 0- 3- 00 00 SI ve NT 33 20 20 46 DE IN 00 16 17 48 1 85 PH 60 AR 0 MA MG CY TA OF BL CY ET NT HI AN A IN C CA 00 12 60 30 00 EA Ac RV 09 -1 -[address] ti ED 37 0- 3- 00 00 SI ve IL 29 20 20 46 DE OL 50 16 17 48 1 78 PH 12 AR .5 MA CY MG OF TA CY BL NT ET HI AN A IN C LI 00 12 30 30 00 EA Ac SI 18 -1 -[address] ti NO 50 0- 3- 00 00 SI ve IA 62 20 20 46 DE IL 01 16 17 48 0 77 PH 20 AR MA MG CY TA OF BL CY ET NT HI AN A IN C CL 00 05 00 30 30 WA 44 BR Ac ON 09 -2 -0 .0 L- 73 OD ti AZ 30 0- 4- 00 MA 93 SK ve EP 83 20 20 RT 4 Y AM 20 09 09 KE 1 PH NN 0. AR ET 5 MA H MG CY M TA #4 BL 93 ET CE 68 05 30 10 WA 69 BR Ac PH 18 -1 -2 .0 L- 89 OD ti AL 00 1- 1- 00 MA 18 SK ve EX 12 20 20 RT 1 Y IN 20 09 09 KE 1 PH NN 50 AR ET 0 MA H MG CY M CA #4 PS 93 UL E KL 15 05 30 30 WA 69 BR Ac OR 33 -1 -2 .0 L- 89 OD ti -C 80 1- 1- 00 MA 18 SK ve ON 12 20 20 RT 0 Y 23 09 09 KE M1 0 PH NN 0 AR ET TA MA H BL CY M ET #4 93 TO 50 02 05 02 30 30 WA 69 BR Ac PA 45 -2 -0 .0 L- 79 OD ti MA 80 4- 7- 00 MA 61 SK ve X 64 20 20 RT 8 Y 50 06 09 09 KE 5 PH NN MG AR ET MA H TA CY M BL ET #4 93 CL 00 03 05 01 30 30 WA 44 BR Ac ON 09 -1 -0 .0 L- 72 OD ti AZ 30 1- 7- 00 MA 46 SK ve EP 83 20 20 RT 9 Y AM 20 09 09 KE 1 PH NN 0. AR ET 5 MA H MG CY M TA #4 BL 93 ET GA 60 04 04 00 60 30 WA 69 BR Ac BA 50 -1 -2 .0 L- 85 OD ti PE 50 0- 3- 00 MA 75 SK ve NT 11 20 20 RT 8 Y IN 30 09 09 KE 1 PH NN 30 AR ET 0 MA H MG CY M CA #4 PS 93 UL E TO 50 02 04 01 30 30 WA 69 BR Ac PA 45 -2 -0 .0 L- 79 OD ti MA 80 4- 9- 00 MA 61 SK ve X 64 20 20 RT 8 Y 50 06 09 09 KE 5 PH NN MG AR ET MA H TA CY M BL ET #4 93 00 04 04 00 45 15 WA 44 BR Ac 40 -0 -0 .0 L- 73 OD ti 60 3- 9- 00 MA 02 SK ve 35 20 20 RT 2 Y 80 09 09 KE 1 PH NN AR ET MA H CY M #4 93 00 04 04 00 30 10 WA 69 BR Ac 37 -0 -0 .0 L- 84 OD ti 80 3- 9- 00 MA 91 SK ve 75 20 20 RT 1 Y 19 09 09 KE 3 PH NN AR ET MA H CY M #4 93 CL 00 03 03 00 30 30 WA 44 BR Ac ON 09 -1 -2 .0 L- 72 OD ti AZ 30 1- 6- 00 MA 46 SK ve EP 83 20 20 RT 9 Y AM 20 09 09 KE 1 PH NN 0. AR ET 5 MA H MG CY M TA #4 BL 93 ET CL 00 02 03 00 30 30 WA 44 BR Ac ON 09 -2 -1 .0 L- 72 OD ti AZ 30 4- 2- 00 MA 14 SK ve EP 83 20 20 RT 0 Y AM 20 09 09 KE 1 PH NN 0. AR ET 5 MA H MG CY M TA #4 BL 93 ET LE 00 07 03 02 30 30 WA 69 BR Ac VO 37 -2 -1 .0 L- 54 OD ti TH 81 3- 2- 00 MA 58 SK ve YR 80 20 20 RT 0 Y OX 50 08 09 KE IN 1 PH NN E AR ET 75 MA H CY M MC G #4 TA 93 BL ET 00 02 03 00 30 30 WA 69 BR Ac 04 -2 -1 .0 L- 79 OD ti 50 4- 2- 00 MA 61 SK ve 64 20 20 RT 8 Y 06 09 09 KE 5 PH NN AR ET MA H CY M #4 93 CI 55 02 03 00 30 30 WA 69 BR Ac TA 11 -2 -1 .0 L- 79 OD ti LO 10 4- 2- 00 MA 61 SK ve IA 34 20 20 RT 7 Y AM 43 09 09 KE 0 PH NN HB AR ET R MA H 40 CY M MG #4 93 TA BL ET LE 00 07 02 01 30 30 WA 69 BR Ac VO 37 -2 -1 .0 L- 54 OD ti TH 81 3- 2- 00 MA 58 SK ve YR 80 20 20 RT 0 Y OX 50 08 09 KE IN 1 PH NN E AR ET 75 MA H CY M MC G #4 TA 93 BL ET AV 00 01 01 00 7. 7 WA 69 BR Ac EL 08 -0 -1 00 L- 74 OD ti OX 51 9- 5- 0 MA 07 SK ve 73 20 20 RT 8 Y 40 30 09 09 KE 0 1 PH NN MG AR ET MA H TA CY M BL ET #4 93 AZ 00 01 01 00 6. 5 WA 69 WI Ac IT 78 -0 -1 00 L- 74 LS ti HR 11 9- 5- 0 MA 07 ON ve OM 49 20 20 RT 7 YC 66 09 09 RO IN 8 PH BE AR RT 25 MA C 0 CY MG #4 TA 93 BL ET [place] 00 12 01 00 15 10 WA [address] 57 -1 -0 .0 L- 65 OD ti OP 42 7- 1- 00 MA 12 SK ve 00 20 20 RT 6 Y 10 81 08 09 KE 0, 5 PH NN 00 M ET 0 10 H UN -0 M IT 70 S/ 2 GM PO WD ER CI 55 09 09 00 15 30 WA 69 BR Ac TA 11 -0 -1 .0 L- 59 OD ti LO 10 3- 1- 00 MA 03 SK ve IA 34 20 20 RT 0 Y AM 43 08 08 KE 0 PH NN HB AR ET R MA H 40 CY M MG #4 93 TA BL ET 00 08 08 00 30 30 WA 69 JE Ac 30 -1 -2 .0 L- 56 NN ti 03 4- 8- 00 MA 67 IN ve 04 20 20 RT 6 GS 61 08 08 -C 3 PH ON AR KL MA IN CY KA #4 RE 93 N ME 00 08 08 00 60 30 WA 69 JE Ac TO 09 -1 -2 .0 L- 56 NN ti CL 32 4- 8- 00 MA 67 IN ve OP 20 20 20 RT 7 GS RA 30 08 08 -C OR 5 PH ON DE AR KL MA IN 10 CY KA MG #4 RE 93 N TA BL ET 58 08 08 00 30 30 RI 33 BR Ac 17 -1 -2 .0 TE 56 OD ti 70 9- 8- 00 58 SK ve 32 20 20 AI Y 00 08 08 D KE 4 PH NN AR ET M H #3 M 91 4 LE 00 07 08 00 30 30 WA 69 BR Ac VO 37 -2 -0 .0 L- 54 OD ti TH 81 3- 1- 00 MA 58 SK ve YR 80 20 20 RT 0 Y OX 50 08 08 KE IN 1 PH NN E AR ET 75 MA H CY M MC G #4 TA 93 BL ET OX 00 07 08 00 30 10 WA 22 BR Ac YC 59 -2 -0 .0 L- 15 OD ti OD 10 3- 1- 00 MA 39 SK ve ON 93 20 20 RT 5 Y -A 30 08 08 KE CE 1 PH NN TA AR ET OR MA H NO CY M PH EN #4 93 7. 5- 32 5 LE 00 07 07 00 30 30 WA 69 BR Ac VO 37 -0 -1 .0 L- 52 OD ti TH 81 9- 7- 00 MA 99 SK ve YR 80 20 20 RT 0 Y OX 30 08 08 KE IN 1 PH NN E AR ET 50 MA H CY M MC G #4 TA 93 BL ET 00 07 07 00 30 30 WA 69 BR Ac 37 -0 -1 .0 L- 52 OD ti 81 3- 7- 00 MA 53 SK ve 08 20 20 RT 0 Y 90 08 08 KE 1 PH NN AR ET MA H CY M #4 93 HY 00 07 07 00 30 30 [place] [address] 17 -0 -1 .0 L- 52 OD ti OC 22 9- 7- 00 MA 98 SK ve HL 08 20 20 RT 9 Y OR 38 08 08 KE OT 0 PH NN HI AR ET AZ MA H ID CY M E 25 #4 93 MG TA B 00 07 07 00 20 6 WA 44 BR Ac 40 -0 -1 .0 L- 67 OD ti 60 1- 7- 00 MA 95 SK ve 35 20 20 RT 4 Y 70 08 08 KE 5 PH NN AR ET MA H CY M #4 93 00 07 07 00 20 5 WA 44 BR Ac 40 -0 -1 .0 L- 68 OD ti 60 9- 7- 00 MA 07 SK ve 35 20 20 RT 1 Y 80 08 08 KE 1 PH NN AR ET MA H CY M #4 93 Procedures Procedure DOS Code Location Performer Comment CREATINE [id number] [facility] K[facility] [place] [address] [facility] LIPASE [facility] INC INC COMPREHEN 88708 [facility] SIVE [facility] METABOLIC INC INC PANEL FINAL G9638 [facility] L[facility] REPORTS 7 MEDICAL W/O DOC IMAGING 1/[place] [address] [facility] AMYLASE [facility] INC INC CREATINE 52915 [facility] KINASE MB 7 [facility] FRACTION INC INC ONLY ECG 41247 [facility] ROUTINE 7 [facility] ECG INC INC W/LEAST 12 LDS TRCG ONLY W/O I&[place] [address] YES[facility] LANDER[facility] ABDOMEN & 7 MEDICAL PELVIS IMAGING [place] [address] [facility] ABDOMINAL 7 MEDICAL REAL IMAGING TIME ASS W/IMAGE LIMITED URNLS DIP 66990 [facility] STICK/TAB INC INC LET REAGENT AUTO MICROSCOP Y FINAL G9551 YESI L[facility]EROS REPR ABD 7 MEDICAL IMAG STS IMAGING W/O ASS INCIDNT F[place]: [place] [address] [facility] TROPONIN 7 [facility] QUANTITAT INC INC MARYLOU BLOOD 81568 [facility] COUNT 7 [facility] COMPLETE INC INC AUTO&AUTO DIFRNTL WBC ECG 10579 [facility]OUTINE 7 PHYSICIAN ECG S, PLLC W/LEAST 12 LDS I&R ONLY CULTURE 68103 [facility] BACTERIAL 7 [facility] INC INC [place]ANTT[place] [address] [facility] SCH[facility] THYROID 7 [facility] STIMULATI INC INC NG HORMONE TSH RADEX 07328 [place] BEINEKE SPINE 7 MEDICAL LUMBOSACR IMAGING [place] [address] [place] [address] [place] ROS[place] ABDOMEN & 7 MEDICAL PELVIS IMAGING W/[place] [address] [facility] LIPASE 7 [facility] INC INC THER 20150 [facility] PROPH/DX 7 [facility] NJX IV INC INC PUSH SINGLE/1S T SBST/DRUG FINAL G9638 [place] ROSENDO REPORTS 7 MEDICAL W/O DOC IMAGING 1/[place] [address] [facility] AMYLASE 7 [facility] INC INC COMPREHEN 73053 [facility] SIVE 7 [facility] METABOLIC INC INC PANEL THERAPEUT 94090 [facility] SCHUL[facility] IC 7 [facility] INJECTION INC INC IV PUSH EACH NEW DRUG BLOOD 69366 [facility] SCH[facility] COUNT 7 [facility] COMPLETE INC INC AUTO&AUTO DIFRNTL WBC FINAL G9551 [facility] [place] REPR ABD 7 MEDICAL IMAG STS IMAGING W/O ASS INCIDNT FND LES NTD: URNLS DIP 26773 [facility]ER 7 [facility] STICK/TAB INC INC [place] [address] HARINI SCHULER THYROXINE 6 [facility] [place] [address] [facility] SCHULER THYROID 6 [facility] STIMULATI INC INC NG HORMONE TSH COMPREHEN 30807 [facility] SIVE 6 [facility] METABOLIC INC INC PANEL CONTINUOU E0601 [facility]KA HERRERA S 6 HOME ILEANA POSITIVE MEDICAL AIRWAY EQUIPME PRESSURE DEVICE RADIOLOGI 62077 [place] TIGRE ALL C 6 MEDICAL EXAMINATI IMAGING ON CHEST ASS [facility] 11013 [facility] 6 MEDICINE YANNI DAY SERVICES MANAGEMEN O T > 30 MIN INITIAL 49179 [facility] 6 MEDICINE SHAW CARE/DAY SERVICES 70 O MINUTES CONTINUOU E0601 SHAKA MATT S 6 HOME HOME POSITIVE MEDICAL MEDICAL AIRWAY EQUIPME EQUIPME PRESSURE DEVICE RADEX 59109 YESI LANDEROS ALL COLON 6 MEDICAL W/SPEC HI IMAGING DNS ASS BARIUM W/WO GLUCAGON ANES 81936 [facility] 6 ANESTH INTESTINE OF THE BLUE ENDOSCOPY DISTAL DUODENUM COLONOSCO 32901 [facility] KAMERON TOD PY FLX DX 6 PHYSICIAN W/COLLJ S GROUP SPEC WHEN PFRMD TUBING A7037 SHAKA PARTIDARELL USED WITH 6 HOME HOME POSITIVE MEDICAL MEDICAL AIRWAY EQUIPME EQUIPME PRESSURE DEVICE HUMDIFIR E0562 [place] MATT HEATED 6 HOME HOME USED MEDICAL MEDICAL W/POS EQUIPME EQUIPME ARWAY PRESSURE DEVICE CONTINUOU E0601 SHAKA MATT S 6 HOME HOME POSITIVE MEDICAL MEDICAL AIRWAY EQUIPME EQUIPME PRESSURE DEVICE FILTER A7038 [place] MATT DISPBL 6 HOME HOME USED MEDICAL MEDICAL W/POS EQUIPME EQUIPME ARWAY PRESSURE DEVICE FILTER A7039 SHAKA SHAKA NON 6 HOME HOME DISPBL MEDICAL MEDICAL USED EQUIPME EQUIPME W/POS ARWAY PRESS DEVICE NASL A7034 SHAKA SHAKA INTRFCE 6 HOME HOME POS ARWAY MEDICAL MEDICAL PRSS EQUIPME EQUIPME DEVC W/WO HEAD STRAP HEADGEAR A7035 SHAKA SHAKA USED 6 HOME HOME W/POSITIV MEDICAL MEDICAL E AIRWAY EQUIP[place] [address] HARINI SCHULER THYROID 6 [facility] STIMULATI [place] [address] HARINI SCHULER THYROXINE 6 [facility] TOTAL INC INC THYROID 68568 HARINI SCHULER HORM 6 [facility] UPTK/THYR INC INC OID HORMONE BINDING RATIO ECHO 90564 HARINI SCHULER TTHRC R-T 6 [facility] 2D INC INC W/WOM-MOD E COMPL SPEC&COLR D SLEEP STD 95012 HARINI SCHULER AIRFLOW 6 [facility] HRT INC INC RATE&O2 [place] [address] [place] LANDEROS ALL TRACT UPR 6 MEDICAL W/SM INT IMAGING W/MULT ASS SERIAL IMAGES ANESTHESI 87283 [facility] A 6 ANESTH SHE INTRAPERI OF THE TONEAL BLUE LOWER ABD W/LAPS NOS LAPS ABD 74210 HARINI SCHULER PRTM&OMEN 6 [facility] KATYA DX INC INC W/WO SPEC BR/WA SPX INJECTION J2405 [facility]ER 6 [facility] ONDANSETR INC INC ON HCL PER 1 MG PRESSURIZ 40884 HARINI SCHULER ED/NONPRE 6 [facility] SSURIZED INC INC INHALATIO N TREATMENT URNLS DIP 07245 [facility]ER 6 [facility] STICK/TAB INC INC LET REAGENT AUTO MICROSCOP Y INJECTION J2710 [facility]ER 6 [facility] NEOSTIGMI INC INC NE METHYLSUL FATE UP TO 0.5 MG UNCLASSIF J3490 HARINI SCHULER IED DRUGS 6 [facility] INC INC SMR PRIM 57063 [facility] JENNIFER SRC WET 6 PHYSICIAN ISH ANDERSON S GROUP NFCT AGT URNLS DIP 06125 [facility]I SCHULER 6 [facility] STICK/TAB INC INC LET REAGENT AUTO MICROSCOP Y BLOOD 74908 [facility] SCHULER COUNT 6 [facility] COMPLETE INC INC AUTO&AUTO DIFRNTL WBC COLLECTIO 69554 HARINI SCHULER N VENOUS 6 [facility] [address] HARINI SCHULER TRANSVAGI 6 [facility] NAL INC INC CULTURE 49428 ELIO RODRIGUEZ CHLAMYDIA 6 JENNIFER ESQUIVEL ISH ANY SOURCE CYTP C/V 00942 BIO BIO AUTO THIN 6 REFERNCE REFERNCE LYR LABORATOR LABORATOR PREPJ SCR IES IES MNL RESCR PHYS IADNA 63813 ELIO Fyr NEISSERIA 6 JENNIFER RODRIGUEZ MD GONORRHOE AE DIRECT PROBE TQ IADNA 04151 BIO BIO NEISSERIA 6 REFERNCE REFERNCE LABORATOR LABORATOR GONORRHOE IES IES AE AMPLIFIED PROBE TQ IADNA NOS 97515 BIO BIO 6 REFERNCE REFERNCE AMPLIFIED LABORATOR LABORATOR PROBE TQ IES IES EACH ORGANISM IADNA 25939 BIO BIO TRICHOMON 6 REFERNCE REFERNCE LABORATOR LABORATOR VAGINALIS IES IES AMPLIFIED PROBE TECH BLOOD 26048 ELIO RODRIGUEZ OCCULT 6 JENNIFER ESQUIVEL ISH PEROXIDAS E ACTV QUAL FECES 1-3 SPEC IADNA 04220 BIO BIO CHLAMYDIA 6 REFERNCE REFERNCE LABORATOR LABORATOR TRACHOMAT IES IES IS AMPLIFIED PROBE TQ URINLS 35274 ELIO RODRIGUEZ DIP 6 JENNIFER ESQUIVEL ISH STICK/TAB LET REAGNT NON-AUTO MICRSCPY UNCLASSIF J3490 HARINI SCHULER IED DRUGS 6 [facility] INC INC URNLS DIP 09104 HARINI SCHULER 6 [facility] STICK/TAB INC INC LET REAGENT AUTO MICROSCOP Y BLOOD 61077 HARINI SCHULER COUNT 6 [facility] COMPLETE INC INC AUTO&AUTO DIFRNTL WBC THERAPEUT 36155 HARINI SCHULER IC 6 [facility] INJECTION INC INC IV PUSH EACH NEW DRUG COMPREHEN 65652 HARINI SCHULER SIVE 6 [facility] [place] [address] HARINI SCHULER AMYLASE 6 [facility] INC INC INJECTION J2405 HARINI SCHULER 6 [facility] ONDANSETR INC INC ON HCL PER 1 MG THER 20442 HARINI SCHULER PROPH/DX 6 [facility] NJX IV INC INC PUSH SINGLE/1S T SBST/[place] [address] HARINI SCHULER ABDOMEN & 6 [facility] PELVIS INC [place] W/[place] [address] HARINI SCHULER LIPASE 6 [facility] INC INC INJECTION J1644 HARINI SCHULER HEPARIN [address] [facility] SODIUM INC INC PER 1000 UNITS LOCM Q9967 HARINI SCHULER [phone] [facility] MG/ML INC INC IODINE CONCENTRA TION PER ML CATHETER C1887 HARINI HARINI GUIDING [address] [facility] INC INC CATH PLMT 03657 HARINI SCHULER L HRT & [address] [facility] ARTS INC INC W/NJX & ANGIO IMG S&I CATHETER C1725 HARINI SCHULER TRANSLUMI [address] [facility] NAL INC INC ANGIOPLAS TY NON-LASER GUIDE C1769 HARINI HARINI WIRE [address] [facility] INC INC GONADOTRO 79027 HARINIHARIS SCHULER PIN [address] [facility] CHORIONIC INC INC QUALITATI VE BLOOD 50473 HARINI SCHULER COUNT [address] [facility] COMPLETE INC INC AUTO&AUTO DIFRNTL WBC COMPREHEN 89333 HARINI SCHULER SIVE 6 [facility] METABOLIC INC INC PANEL ECG 04254 HARINI HARINI ROUTINE [address] [facility] ECG INC INC W/LEAST 12 LDS TRCG ONLY W/O I&R PROTHROMB 71818 HARINI SCHULER IN TIME [address] [facility] HOSP INC INC COLLECTIO 42496 HARINI SCHULER N VENOUS [address] [facility] [place] [address] [facility] ABDOMEN & 6 MEDICAL MEDICAL PELVIS IMAGING IMAGING W/[place] [address] HARINI HARINI LIPASE 6 [facility] INC INC INJECTION J2405 HARINI HARINI [address] [facility] H[facility]P ONDANSETR INC INC ON HCL PER 1 MG COMPREHEN 60014 HARINI HARINI SIVE [address] [facility] [address] HARINI SCHULER AMYLASE 6 [facility] INC INC ECG 77824 HARINI SCHULER ROUTINE 6 [facility] ECG INC INC W/LEAST 12 LDS TRCG ONLY W/[place] [address] HARINI SCHULER INFUSION 6 [facility] THERAPY/P INC INC ROPHYLAXI S /DX 1ST TO 1 HR BLOOD 02349 HARINI SCHULER COUNT 6 [facility] COMPLETE INC INC AUTO&[place] [address] HARINI SCHULER INFUSION 6 [facility] THER INC INC PROPH ADDL SEQUENTIA L TO 1 HR URNLS DIP 08159 HARINI SCHULER 6 [facility] STICK/TAB INC INC LET REAGENT AUTO MICROSCOP Y THER 27818 HARINI SCHULER PROPH/DX 6 [facility] NJX EA INC INC SEQL IV PUSH SBST/DRUG FAC MYOCARDIA 96459 HARINI SCHULER L SPECT 6 [facility] MULTIPLE INC INC STUDIES ECHO 59843 HARINI SCHULER TTHRC R-T 6 [facility] 2D INC INC W/WOM-MOD E COMPL SPEC&COLR D CV STRS 95125 [facility] FALLUJI TST 6 PHYSICIAN EDIN XERS&/OR S GROUP RX CONT ECG W/O I&R CV STRS 86647 HARINI HARINI TST 6 [facility] XERS&/OR INC INC RX CONT ECG TRCG ONLY INJECTION J2785 HARINI SCHULER 6 [facility] REGADENOS INC INC ON 0.1 MG TECHNETIU A9500 HARINI SCHULER M TC-99M 6 [facility] [place]STAMIBI [place] [address] [place] ROS[place] TRANSVAGI 6 MEDICAL GARETH NAL IMAGING ASS RADEX ABD 40452 [place] LANDEROS ALL COMPL 6 MEDICAL AQT ABD IMAGING W/S/E/D ASS VIEWS 1 VIEW CH ECG 04439 HARINI SCHULER ROUTINE 5 [facility] ECG INC INC W/LEAST 12 LDS TRCG ONLY W/O I&R US BREAST 34377 [place] LANDEROS ALL UNI REAL 5 MEDICAL TIME IMAGING WITH ASS IMAGE LIMITED US BREAST 42460 HARINIHARIS SCHULER UNI REAL 5 [facility] TIME INC INC WITH IMAGE COMPLETE COLLECTIO 34549 HARINI SCHULER N VENOUS [address] [facility] H[facility]P BLOOD INC INC VENIPUNCT URE COMPREHEN 82150 HARINI SCHULER SIVE 5 [facility] [place] [address] HARINI HARINI LIPASE 5 [facility] [place] [address] HARINI SCHULER AMYLASE 5 [facility] INC INC BLOOD 84991 HARINI HARINI COUNT 5 [facility] COMPLETE INC INC AUTO&AUTO DIFRNTL WBC ECG 10719 HARINI SCHULER ROUTINE 5 [facility] ECG INC INC W/LEAST 12 LDS TRCG ONLY W/O I&[place] [address] HARINI SCHULER HEAD/BRAI [address] [facility] N W/O INC INC CONTRAST MATERIAL THERAPEUT 02863 HARINI SCHULER IC [address] [facility]P INJECTION INC INC IV PUSH EACH NEW DRUG INJECTION J0131 HARINI HARINI [address] [facility] H[facility]P ACETAMINO INC INC PHEN 10 [place] [address] HARINI SCHULER INFUSION [address] [facility] THERAPY/P INC INC ROPHYLAXI S /DX 1ST TO 1 HR PRESSURIZ 83020 HARINI SCHULER ED/NONPRE [address] [facility] SSURIZED INC INC INHALATIO N TREATMENT ECG 91496 HARINI SPANN ROUTINE 5 [facility] W/LEAST P 12 LDS I&[place] [address] HARINI SCHULER INFUSION 5 [facility] THERAPY INC INC PROPHYLAX IS/DX EA HOUR ECG 78705 HARINI SCHULER ROUTINE [address] [facility] ECG INC INC W/LEAST 12 LDS TRCG ONLY W/O I&R BIOPSY 63940 [facility] KAMERON TOD BREAST 5 PHYSICIAN OPEN S GROUP INCISIONA L ANES 08297 [facility] LEDESMA BENJAMIN INTEG 5 ANESTH MUSC & OF THE NRV HEAD BLUE NECK&[place] [address] [facility], [facility] ER JR GIULIA PATHOLOGY GROSS&KARLA ROSCOPIC EXAM US BREAST 53278 HARINI SCHULER UNI REAL 5 [facility] TIME INC INC WITH IMAGE COMPLETE US BREAST 03565 YESI ROBBINS UNI REAL 5 MEDICAL GARETH TIME IMAGING WITH ASS IMAGE LIMITED CYTP FLU 59573 [facility], PICKLESIM WASHGS/BR 5 [facility] ER JR GIULIA USHINGS XCPT C/[place] [address] [facility] ABDOMEN & 5 RADIOLOGY LD IV ALL PELVIS W/O CONTRAST MATERIAL RADIOLOGI 67666 [facility] C EXAM 5 DERIC OLGA LIDIA CHEST 2 EMERGENCY VIEWS PHYS FRONTAL&L ATERAL COLLECTIO 16036 MAGDY CURRAN N VENOUS 5 [facility] VENIPUNCT URE ECG 57490 MAGDY CURRAN ROUTINE 5 [facility] W/LEAST 12 LDS TRCG ONLY W/O I&R COMPREHEN 04063 MAGDY CURRAN SIVE [address] [place] [address] PANEL FIBRIN 08792 MAGDY CURRAN DGRADJ [address] [place] [address] D-DIMER QUANTITAT MARYLOU ECG 12870 [facility] CELLAROSI ROUTINE 5 DERIC - YORBA ECG EMERGENCY PAT W/LEAST PHYS 12 LDS I&R ONLY NATRIURET 57803 MAGDY CURRAN IC [address] [place] [address] [place] [address] [facility] TROPONIN [address] [place] [address] MARYLOU BLOOD 51020 MAGDY CURRAN COUNT [address] [place] [address] AUTO&AUTO DIFRNTL WBC DIAGNOSTI G0204 HARINI SCHULER C 5 [facility] MAMMOGRAP INC INC HY INCL CAD WHEN PERF; BILAT CYTP FLU 56865 [facility], ULLOA WASHGS/BR 5 [facility] MARGARET USHINGS XCPT C/V SMRS INTERPJ ANES 88986 [facility] HORMANN INTEG 5 ANESTH MAR EXTREMITI OF THE ES ANT BLUE TRUNK & PERINEUM NOS EXCISION 58409 HARINI SCHULER HIDRADENI 5 [facility] TIS INC INC AXILLARY COMPLEX REPAIR LEVEL III 13937 [facility] ULLOA SURG 5 [facility] MARGARET PATHOLOGY GROSS&KARLA ROSCOPIC EXAM ECG 61081 HARINI SCHULER ROUTINE 5 [facility] ECG INC INC W/LEAST 12 LDS TRCG ONLY W/O I&R ECG 99733 CARDIOVAS DIRK ROUTINE 5 CULAR MAT ECG CONSULTAN W/LEAST TS O 12 LDS I&R ONLY LOCM Q9967 HARINI SCHULER 300-[address] [facility] MG/ML INC INC IODINE CONCENTRA TION PER ML RADIOLOGI 56887 HARINI SCHULER C EXAM [address] [facility] CHEST 2 INC INC VIEWS FRONTAL&[place] [address] HARINI SCHULER ANGIOGRAP [address] [facility] HY HEAD INC INC W/CONTRAS T/[place] [address] HARINI SCHULER THYROID [address] [facility] STIMULATI INC INC NG HORMONE TSH CV STRS 32127 CARDIOVAS DIRK TST 5 CULAR MAT XERS&/OR CONSULTAN RX CONT TS O ECG I&R ONLY CV STRS 42812 HARINI SCHULER TST 5 [facility] XERS&/OR INC INC RX CONT ECG TRCG ONLY CV STRS 39812 [facility] FALLUJI TST 5 PHYSICIAN EDIN XERS&/OR S GROUP RX CONT ECG W/O I&R COMPREHEN 52326 HARINI SCHULER SIVE 5 [facility] METABOLIC INC INC PANEL BILIRUBIN 72221 HARINI SCHULER DIRECT 5 [facility] INC INC COLLECTIO 14245 HARINI SCHULER N VENOUS [address] [facility] BLOOD INC INC VENIPUNCT URE ECHO 45681 KASEY MATT TTC R-T 5 MEDICAL FELISHA 2D SERV W/WOM-MOD FOUNDATIO E COMPL N SPEC&COLR D BLOOD 53424 HARINI SCHULER COUNT [address] [facility] COMPLETE INC INC AUTO&AUTO DIFRNTL WBC NATRIURET 75698 HARINI SCHULER IC 5 [facility] PEPTIDE INC INC LIPID 35713 HARINI SCHULER PANEL 5 [place] [address] HARINI SCHULER THYROXINE 5 [facility]OS[facility] TOTAL INC INC BRNCDILAT 16812 HARINI SCHULER RSPSE 5 [facility] SPMTRY INC INC PRE&POST- BRNCDILAT ADMN GAS 79973 HARINI SCHULER DILUT/WAS [address] [facility] HOUT LUNG INC INC VOL W/WO DISTRIB VENT&[place] [address] HARINI SCHULER DIFFUSING 5 [facility] CAPACITY INC INC ECG 10984 HARINI SCHULER ROUTINE [address] [facility] ECG INC INC W/LEAST 12 LDS TRCG ONLY W/O I&R ECG 79226 CARDIOVAS DIRK ROUTINE 5 CULAR MAT ECG CONSULTAN W/LEAST TS O 12 LDS I&R ONLY INJECTION J1040 [facility] ANGEL LUIS 4 PHYSICIAN KARLA METHYLPRE S GROUP DNISOLONE ACETATE 80 MG THERAPEUT 78238 [facility] ANGEL LUIS IC 4 PHYSICIAN KARLA PROPHYLAC S GROUP TIC/DX INJECTION SUBQ/IM OPHTH 56002 [facility] 4 GRE GRE XM&EVAL COMPRE NEW PT 1/> VST DOP 12350 [facility] ECHOCARD 4 [facility] COLOR MEDICAL FLOW G VELOCITY MAPPING ECHO 91173 [facility] TRANSESOP 4 NE [facility] HAG R-T MEDICAL 2D W/PRB G IMG ACQUISJ I&[place] [address] HARINI SCHULER 2 VIEWS [address] [facility] FRNT & INC INC LAT APICAL LORDOTIC PX DOPPLER 18267 [facility] ECHOCARD 4 [facility] PULSE MEDICAL WAVE G W/SPECTRA L DISPLAY RADIOLOGI 34997 [facility] C EXAM 4 MEDICAL SHREYA CHEST 2 IMAGING VIEWS ASS FRONTAL&L ATERAL ECHO 70219 ARREDONDO ILEANA ARREDONDO ILEANA TTHRC R-T 4 2D W/WOM-MOD E COMPL SPEC&[place] [address] HARINI SCHULER TROPONIN 4 [facility] QUANTITAT INC INC MARYLOU BLOOD 68680 HRAINI SCHULER COUNT 4 [facility] COMPLETE INC INC AUTO&AUTO DIFRNTL WBC CREATINE 28118 HARINI SCHULER KINASE MB 4 [facility] FRACTION INC INC ONLY COMPREHEN 96601 HARINI SCHULER SIVE 4 [facility] METABOLIC INC INC PANEL CREATINE 46158 HARINI SCHULER KINASE 4 [facility] TOTAL INC INC CULTURE 04631 HARINI SCHULER FNGI 4 [facility] MOLD/YEAS INC INC T PRSMPTV OTH XCPT BLOOD CUL BACT 94420 HARINI SCHULER XCPT 4 [facility] URINE INC INC BLOOD/STO OL AEROBIC ISOL BLOOD 03325 [facility] COUNT 4 [facility] AUTO&AUTO DIFRNTL WBC INCISION 93848 SWINEY SWINEY & REMOVAL 4 PAT PAT FOREIGN BODY SUBQ TISS SIMPLE CYTP C/V 15741 PICKLESIM PICKLESIM AUTO THIN 4 ER JR GIULIA ER JR GIULIA [place] [address] ALANIZ ALANIZ ABDOMEN & 4 OLGA LIDIA OLGA LIDIA PELVIS W/O CONTRAST MATERIAL RADIOLOGI 36414 ALANIZ ALANIZ C EXAM 4 OLGA LIDIA OLGA LIDIA CHEST 2 VIEWS FRONTAL&L ATERAL ECG 46616 SWINEY SWINEY ROUTINE 4 PAT PAT ECG W/LEAST 12 LDS I&R ONLY RADIOLOGI 42528 SWINEY SWINEY C 4 PAT PAT EXAMINATI ON CHEST SINGLE VIEW FRONTAL RADIOLOGI 47445 SAVANNA SAVANNA C 4 RHO RHO [place]AMINAT[place] [address] SAVANNA SAVANNA ABDOMEN & 4 RHO RHO PELVIS W/CONTRAS T MATERIAL OSTEOPATH 99344 PRIMARY YEMI, IC 9 HEALTH MARY M MANIPULAT ASSOCIATE MARYLOU TX S PSC 1-2 BODY REGIONS ECG 75814 CARDIOLOG JOVEL, ROUTINE 9 Y ALAN A ECG ASSOCIATE W/LEAST S OF 12 LDS [place] I&[place] [address] [facility] [place] EVIN, HEAD/BRAI 9 RADIOLOGY SIMONA D N W/O CONTRAST MATERIAL RADIOLOGI 52882 [facility] KASEY Konstantin BAZAN C EXAM 9 RADIOLOGY T CHEST 2 VIEWS FRONTAL&L ATERAL ECG 87056 PRIMARY YEMI, ROUTINE 9 HEALTH MARY M ECG ASSOCIATE W/LEAST S PSC 12 LDS W/I&R ECG 41350 CARDIOLOG JOVEL, ROUTINE 9 Y ALAN A ECG ASSOCIATE W/LEAST S OF 12 LDS [place] I&R ONLY ECG 38196 [facility], ROUTINE 9 DERIC ASIF C ECG EMERGENCY W/LEAST PHYS INC 12 LDS I&R ONLY BLOOD 71808 [facility] COUNT 9 [facility] AUTO&[place] [address] [facility] TROPONIN 9 [facility] MARYLOU GROUND A0425 [facility] MILEAGE 9 [facility] STATUTE EMS EMS MILE RADIOLOGI 59688 [facility] C 9 [facility] ON CHEST [place] FRONTAL BASIC 41057 [facility] METABOLIC 9 [facility] CALCIUM TOTAL AMB A0427 [facility] SERVICE 9 [facility] EMERGENCY EMS EMS TRANSPORT LEVEL 1 ECG 09812 [facility] ROUTINE 9 [facility] W/LEAST 12 LDS TRCG ONLY W/O I&R CREATINE 13269 [facility] KINASE 9 [facility] FIBRIN 63687 [facility] DGRADJ 9 [facility] D-DIMER QUAL/SEMI SONYA COLLECTIO 43508 [facility] N VENOUS 9 [facility] [place] [address] [facility] INFUSION 9 [facility] INITIAL 31 MIN-1 [place] [address] [place] INFUSION 9 [facility] [place] [address] [facility] THYROID 9 [facility] NG [place] T[place] [facility]ELVIS 00478 [facility] [place] [address] [facility] ABDOMEN 8 [facility] T MATERIAL ESOPHAGOG 44592 FU- FU- ASTRODUOD 8 ZACHARY, ZACHARY, ENOSCOPY ROSLYN ROSLYN TRANSORAL DIAGNOSTI C ANES 86253 [place] DEPA, UPPER GI 8 ANESTHESI MARTINEZ ENDOSCOPY A GROUP PROXIMAL PSC TO DUODENUM HEPATBL 76166 [facility] ROBERT ESTRADA SYJavier 8 RADIOLOGY J IMG GLBLDR RADEX 14764 [facility] UPPER GI 8 [facility] GLUCAGON/ DELAY IMGES W/[place] [address] CNTR[facility] KASEY ARRIOLA, TRACT 8 RADIOLOGY JEREMY Purcell UPPER W/WO DELAYED IMAGES W/O KUB BASIC 91706 [facility] METABOLIC 8 [facility] CALCIUM TOTAL HEMOGLOBI 35317 [facility] N [address] [place] [address] MIQUEL A1C HEPATIC 26478 [facility] FUNCTION 8 [facility] LIPID 85254 [facility] PANEL [address] [place] [address] BLOOD 26330 [facility] COUNT 8 [facility] AUTO&AUTO DIFRNTL WBC SEDIMENTA 18406 [facility] TION RATE 8 [facility] NON-AUTOM ATED SCREENING 72942 CNTRLucina BOLTON RADIOLOGY J MAMMOGRAP HY BILATERAL COLLECTIO 70725 [facility] N VENOUS 8 [facility] VENIPUNCT URE COMPUTER- 37373 [facility] SAMREEN ESTRADA 8 RADIOLOGY J DETECTION S[place] [address] [facility] THYROID 8 [facility] [place] [address] CN[facility] [place] CHINTAN, ABDOMINAL 8 RADIOLOGY J REAL TIME W/IMAGE LIMITED DOP 20177 CARDIOLOG JOVEL, ECHOCARD 8 Y ALAN A COLOR ASSOCIATE FLOW S OF VELOCITY [place] MAPPING ECHO 85310 CARDIOLOG JOVEL, TRANSTHOR 8 Y ALAN A AC R-T 2D ASSOCIATE W/WO S OF M-MODE [place] REC COMP DOPPLER 12538 CARDIOLOG JOVEL, ECHOCARD 8 Y ALAN A PULSE ASSOCIATE WAVE S OF W/SPECTRA [place] L DISPLAY Encounters Encounter Start End Date Code Location Performer Type Date OFFICE 08509 [facility] RIGO GRANADOS 7 7 PHYSICIAN T VISIT S GROUP 15 MINUTES EMERGENCY 40281 SELENA LIZ DEPT 7 7 PHYSICIAN VISIT S, PLLC HIGH SEVERITY& THREAT FUNCJ EMERGENCY 52420 HARINI 7 7 [facility] DEPARTMEN INC T VISIT HIGH/URGE NT SEVERITY HOSPITAL HARINI - 7 7 [facility] OUTPATIEN INC T HOSPITAL HARINI - 7 7 [facility] OUTPATIEN INC T OFFICE 24805 [facility] JENNIFER GRANADOS 7 7 PHYSICIAN T VISIT S GROUP 25 MINUTES EMERGENCY 47526 HARINI 7 7 [facility] DEPARTMEN INC T VISIT LOW/MODER SEVERITY HOSPITAL HARINI - 7 7 [facility] OUTPATIEN INC T EMERGENCY 16920 SELENA FORD 7 7 PHYSICIAN JR DEPARTMEN S, [facility] T VISIT HIGH/URGE NT SEVERITY EMERGENCY 43232 HARINI 7 7 [facility] DEPARTMEN INC T VISIT HIGH/URGE NT SEVERITY HOSPITAL HARINI - 7 7 [facility] OUTPATIEN INC T EMERGENCY 36395 SELENA HEIN DEPT 7 7 PHYSICIAN VISIT S, PLLC HIGH SEVERITY& THREAT FUNCJ EMERGENCY 22790 HARINI 6 6 [facility] DEPARTMEN INC T VISIT LIMITED/M INOR [facility] HOSPITAL HARINI - 6 6 [facility] OUTPATIEN INC T EMERGENCY 49201 SELENA LIZ 6 6 PHYSICIAN DEPARTMEN S, [facility] T VISIT LOW/MODER SEVERITY OFFICE 46769 [facility] HARPEL OUTPATIEN 6 6 PHYSICIAN ISH T VISIT S GROUP 15 MINUTES HOSPITAL HARINI - 6 6 [facility] OUTPATIEN INC T EMERGENCY 51967 [facility] SWINE[facility] 6 6 DERIC PAT DEPARTMEN EMERGENCY T VISIT PHYS MODERATE SEVERITY EMERGENCY 58722 SELENA MULLINS 6 6 PHYSICIAN U SHREYA DEPARTMEN S, [facility] T VISIT MODERATE SEVERITY EMERGENCY 51992 [facility] SWINEY DEPT 6 6 DERIC PAT VISIT EMERGENCY HIGH PHYSI SEVERITY& THREAT [facility] - 6 6 [facility] OFFICE 04687 [facility] KAMERON TOD OUTPATIEN 6 6 PHYSICIAN T VISIT S GROUP 10 MINUTES OFFICE 61849 [facility] HARPEL OUTPATIEN 6 6 PHYSICIAN ISH T VISIT S GROUP 15 MINUTES OFFICE 08962 [facility] KAMERON TOD OUTPATIEN 6 6 PHYSICIAN T VISIT S GROUP 10 MINUTES HOSPITAL HARINI - 6 6 [facility] OUTPATIEN INC T OFFICE 26946 [facility] KAMERON TOD OUTPATIEN 6 6 PHYSICIAN T VISIT S GROUP 10 MINUTES OFFICE 04360 ELOI RODRIGUEZ OUTPATIEN 6 6 JENNIFER DENG T VISIT 15 MINUTES [facility] HARINI - 6 6 [facility] OUTPATIEN INC HOSPITAL HARINI - 6 6 [facility] OUTPATIEN INC T OFFICE 18321 [facility] HARPEL OUTPATIEN 6 6 PHYSICIAN ISH T VISIT S GROUP 25 MINUTES HOSPITAL HARINI - 6 6 [facility] OUTPATIEN INC T OFFICE 66062 [facility] HARPEL OUTPATIEN 6 6 PHYSICIAN ISH T VISIT S GROUP 25 MINUTES OFFICE 47550 ELIO RODRIGUEZ OUTPATIEN 6 6 JENNIFER DENG T VISIT 25 MINUTES HOSPITAL HARINI - 6 6 [facility] OUTPATIEN INC T INITIAL 73858 ELIO RODRIGUEZ PREVENTIV 6 6 JENNIFER DENG E MEDICINE NEW PATIENT 40-64YRS EMERGENCY 26748 HARINI 6 6 [facility] DEPARTMEN [facility] T VISIT MODERATE SEVERITY HOSPITAL HARINI - 6 6 [facility] OUTPATIEN [facility] T EMERGENCY 03219 SELENA HEIN 6 6 PHYSICIAN [facility] S, [facility] T VISIT HIGH/URGE NT SEVERITY OFFICE 21438 [facility] DIRK OUTPATIEN 6 6 PHYSICIAN MAT T VISIT S GROUP 25 MINUTES HOSPITAL HARINI - 6 6 [facility] OUTPATIEN [facility] HARINI - 6 6 [facility] OUTPATIEN [facility] T OFFICE 52664 [facility] KAMERON TOD OUTPATIEN 6 6 PHYSICIAN T VISIT S GROUP 15 MINUTES EMERGENCY 74438 HARINI 6 6 [facility] DEPARTMEN [facility] T VISIT HIGH/URGE NT SEVERITY EMERGENCY 66967 SELENA MULLINS DEPT 6 6 PHYSICIAN U SHREYA VISIT S, [facility] HIGH SEVERITY& THREAT [facility] HARINI - 6 6 [facility] OUTPATIEN INC T HOSPITAL HARINI - 6 6 [facility] OUTPATIEN INC T OFFICE 66683 [facility] KAMERON TOD OUTPATIEN 6 6 PHYSICIAN T VISIT S GROUP 15 MINUTES HOSPITAL HARINI - 6 6 [facility] OUTPATIEN [facility]PITAL HARINI - 5 5 [facility] OUTPATIEN [facility] T OFFICE 77137 [facility] KAMERON TOD OUTPATIEN 5 5 PHYSICIAN T VISIT S GROUP 15 MINUTES [facility] HARINI - 5 5 [facility] OUTPATIEN [facility]PITAL HARINI - 5 5 [facility] OUTPATIEN [facility] T OFFICE 49797 [facility] KAMERON TOD OUTPATIEN 5 5 PHYSICIAN T VISIT S GROUP 15 MINUTES [facility] HARINI - 5 5 [facility] OUTPATIEN [facility] OFFICE 84730 [facility] KAMERON TOD OUTPATIEN 5 5 PHYSICIAN T [facility]ISIT S GROUP 15 MINUTES [facility] HARINI - 5 5 [facility] OUTPATIEN [facility] HARINI [facility] 5 5 [facility] OUTPATIEN [facility] T OFFICE 43880 [facility] KAMERON TOD OUTPATIEN 5 5 PHYSICIAN T [facility]ISIT S GROUP 15 MINUTES [facility] HARINI - 5 5 [facility] OUTPATIEN [facility] EMERGENCY 23365 [facility] GARETT II DEPT 5 5 DERIC O VISIT EMERGENCY HIGH PHYS SEVERITY& THREAT [facility] OFFICE [id number] [facility] KAMERON TOD CONSULTAT 5 5 PHYSICIAN ION S GROUP NEW/ESTAB PATIENT 30 MIN EMERGENCY [id number] [facility] FR[facility]COIS [facility] T [facility]IT PHYS HIGH/URGE NT [facility]VERITY [facility]ERGENCY [facility] [facility] HIGH SEVERITY& THREAT FUNCJ EMERGENCY 43465 [facility] CELLAROSI 5 5 DERIC - YORBA DEPARTMEN EMERGENCY PAT T VISIT PHYS HIGH/URGE NT SEVERITY [facility] - 5 5 [facility] T OFFICE 23930 [facility] ANGEL LUIS OUTPATIEN 5 5 PHYSICIAN KARLA T VISIT S GROUP 10 MINUTES OFFICE 40426 [facility] ANGEL LUIS OUTPATIEN 5 5 PHYSICIAN KARLA T VISIT S GROUP 10 MINUTES [facility] - 5 5 [facility] T [facility] 04140 [facility] PHYSICIAN KARLA T VISIT S GROUP 15 MINUTES [facility] - 5 5 [facility] OFFICE 82883 [facility] KAMERON TOD CONSULTAT 5 5 PHYSICIAN ION S GROUP NEW/ESTAB PATIENT 40 MIN OFFICE 19656 [facility] 5 PHYSICIAN KARLA T VISIT S GROUP 15 MINUTES OFFICE 88102 [facility] OUTPATIEN 5 5 CULAR MAT T VISIT CONSULTAN 15 TS O MINUTES [facility]OSPITAL [facility] - 5 5 [facility] OUTPATIEN [facility] - 5 5 [facility] - 5 5 [facility] - 5 5 [facility] HARINI - 5 5 [facility] OUTPATIEN [facility] OFFICE 99989 [facility] D[facility]K OUTPATIEN 5 5 CULAR MAT T NEW 60 CONSULTAN MINUTES TS O EMERGENCY [id number] [facility] 4 4 [facility] OLGA LIDIA DEPARTMEN EMERGENCY T VISIT PHYS MODERATE SEVERITY OFFICE 26534 [facility] OUTPATIEN 4 4 PHYSICIAN KARLA T VISIT S GROUP 15 MINUTES EMERGENCY 79926 [facility] 4 4 DERIC DEPARTMEN EMERGENCY T VISIT PHYS MODERATE SEVERITY OFFICE 30590 [facility] ANGEL LUIS OUTPATIEN 4 4 PHYSICIAN KARLA T VISIT S GROUP 10 MINUTES [facility]OSP[facility] - 4 4 [facility]PATIEN [facility]ITAL HARINI - 4 4 [facility] OUTPATIEN [facility] OFFICE 74144 ANGEL RINCONUAMILCAR OUTPATIEN 4 4 EDINSilvia JANGZ T VISIT 25 MINUTES [facility] - 4 4 [facility] OUTPATIEN [facility] 4 4 [facility] OUTPATIEN [facility] OFFICE 07557 [facility] OUTPATIEN 4 4 KARLA KARLA T VISIT 25 MINUTES EMERGENCY 81634 [facility] SWINEY 4 4 [facility] T VISIT HIGH/URGE NT SEVERITY [facility]OSPITAL MAGDY - 4 4 [facility] T EMERGENCY [address] [facility] 4 4 [facility] V[facility] MODERATE SEVERITY OFFICE 48277 [facility] OUTPATIEN 4 4 MALCOM MALCOM T NEW 45 MINUTES OFFICE 61541 FILIBERTO DE [place] JR OUTPATIEN 4 4 YANNI YANNI T NEW 30 MINUTES EMERGENCY 85664 GARETT II GARETT II 4 4 [facility] T VISIT HIGH/URGE NT SEVERITY EMERGENCY 11480 SWINEY SWINEY DEPT 4 4 PAT PAT VISIT HIGH SEVERITY& THREAT FUNCJ OFFICE 78585 BOO HADDAD OUTPATIEN 9 9 , KAYDEN MONIQUE T VISIT 15 MINUTES OFFICE 09910 [facility] CONS[facility]AT 9 9 , KAYDENKAYDEN Purcell ION NEW/ESTAB PATIENT 60 MIN OFFICE 20050 PRIMARY DARWIN BRAGG 9 9 [facility] MARY Jernigan T VISIT ASSOCIATE 15 S PSC MINUTES OFFICE 89094 PRIMARY YEMI OUTPATIEN [address] [facility] MARY M T VISIT ASSOCIATE 15 S PSC MINUTES EMERGENCY 48064 [facility] GARETT DEPT 9 9 DERIC VISIT EMERGENCY HIGH PHYS INC SEVERITY& THREAT FUNCJ OFFICE 10398 PRIMARY KARI BRAGGPATIEN [address] [facility] MARY M T VISIT ASSOCIATE 15 S PSC MINUTES OFFICE 45844 PRIMARY MIRI BRAGGEN [address] [facility] MARY M T VISIT ASSOCIATE 25 S PSC MINUTES [facility] 9 9 [facility] 31858 [facility] 9 9 DERIC ASIF C VISIT EMERGENCY HIGH PHYS INC SEVERITY& THREAT FUNCJ EMERGENCY 67240 [facility] 9 9 [facility] V[place] MODERATE SEVERITY OFFICE 22680 PRIMARY MIRI BRAGGEN [address] [facility]OCIATE 15 S PSC MINUTES [facility] 8 8 [facility] [place] 02242 PRIMARY KARI BRAGGPATIEN [address] [facility] MARY M T VISIT ASSOCIATE 15 S PSC MINUTES OFFICE 75379 ALLRAN ALLRAN OUTPATIEN 8 8 JR TAHIRA, T VISIT [facility] 15 MINUTES OFFICE 02623 PRIMARY MIRI BRAGGEN [address] [facility] VISIT ASSOCIATE 25 S PSC MINUTES [facility] [place] [address] [facility] - 8 8 [facility] OFF[facility] 82132 ALLRAN ALLRAN CONSULTAT 8 8 JR TAHIRA, ION [facility] NEW/ESTAB PATIENT 60 MIN OFFICE 68500 PRIMARY KARI BRAGGPATIEN [address] [facility] VISIT ASSOCIATE 15 S PSC MINUTES [facility] 8 8 [facility] 64648 PRIMARY DARWIN BRAGG 8 8 [facility] 25 S PSC MINUTES OFFICE 65051 PRIMARY DARWIN BRAGG [address] [facility] S PSC
--- OUTSIDE RECORDS SUMMARY | 2016-12-29 16:37 | External Medical Summary Rpt | CCD ---
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 INC WITH IMAGE COMPLETE COLLECTIO 06688 HARINI SCHULER N VENOUS 5 [facility] BLOOD INC INC VENIPUNCT URE COMPREHEN 68726 HARINI SCHULER SIVE 5 [facility] [place] [address] HARINI HARINI LIPASE 5 [facility] [place] [address] HARINI SCHULER AMYLASE 5 [facility] INC INC BLOOD 65932 HARINI HARINI COUNT 5 [facility] COMPLETE INC INC AUTO&AUTO DIFRNTL WBC ECG 67463 HARINI SCHULER ROUTINE 5 [facility] ECG INC INC W/LEAST 12 LDS TRCG ONLY W/O I&[place] [address] HARINI SCHULER HEAD/BRAI 5 [facility] N W/O INC INC CONTRAST MATERIAL THERAPEUT 25515 HARINI SCHULER IC 5 [facility] INJECTION INC INC IV PUSH EACH NEW DRUG INJECTION J0131 HARINI HARINI 5 [facility] ACETAMINO INC INC PHEN 10 [place] [address] HARINI SCHULER INFUSION 5 [facility] THERAPY/P INC INC ROPHYLAXI S /DX 1ST TO 1 HR PRESSURIZ 86254 HARINI SCHULER ED/NONPRE 5 [facility] SSURIZED INC INC INHALATIO N TREATMENT ECG 47434 HARINI SPANN ROUTINE 5 [facility] W/LEAST P 12 LDS I&[place] [address] HARINI SCHULER INFUSION 5 [facility] THERAPY INC INC PROPHYLAX IS/DX EA HOUR ECG 63425 HARINI SCHULER ROUTINE 5 [facility] ECG INC INC W/LEAST 12 LDS TRCG ONLY W/O I&R BIOPSY 13865 [facility] K[facility] TOD BREAST 5 PHYSICIAN OPEN S GROUP INCISIONA L ANES 67819 [facility] LEDESMA BENJAMIN INTEG 5 ANESTH MUSC & OF THE NRV HEAD BLUE NECK&[place] [address] [facility], [facility] ER JR GIULIA PATHOLOGY GROSS&KARLA ROSCOPIC EXAM US BREAST 45139 HARINI SCHULER UNI REAL 5 [facility] TIME INC INC WITH IMAGE COMPLETE US BREAST 27439 YESI ROBBINS UNI REAL 5 MEDICAL GARETH TIME IMAGING WITH ASS IMAGE LIMITED CYTP FLU 99962 [facility], PICKLESIM WASHGS/BR 5 [facility] ER JR GIULIA USHINGS XCPT C/[place] [address] [facility] ABDOMEN & 5 RADIOLOGY LD IV ALL PELVIS W/O CONTRAST MATERIAL RADIOLOGI 63950 [facility] C EXAM 5 DERIC OLGA LIDIA CHEST 2 EMERGENCY VIEWS PHYS FRONTAL&L ATERAL COLLECTIO 77381 MAGDY CURRAN N VENOUS 5 [facility] VENIPUNCT URE ECG 50004 MAGDY CURRAN ROUTINE 5 [facility] W/LEAST 12 LDS TRCG ONLY W/O I&R COMPREHEN 64098 MAGDY CURRAN SIVE [address] [place] [address] PANEL FIBRIN 45872 MAGDY CURRAN DGRADJ [address] [place] [address] D-DIMER QUANTITAT MARYLOU ECG 24460 [facility] CELLAROSI ROUTINE 5 DERIC - YORBA ECG EMERGENCY PAT W/LEAST PHYS 12 LDS I&R ONLY NATRIURET 23436 MAGDY CURRAN IC [address] [place] [address] [place] [address] [facility] TROPONIN [address] [place] [address] MARYLOU BLOOD 89612 MAGDY CURRAN COUNT [address] [place] [address] AUTO&AUTO DIFRNTL WBC DIAGNOSTI G0204 HARINI SCHULER C 5 [facility] MAMMOGRAP INC INC HY INCL CAD WHEN PERF; BILAT CYTP FLU 22223 [facility], ULLOA WASHGS/BR 5 [facility] MARGARET USHINGS XCPT C/V SMRS INTERPJ ANES 47246 [facility] HORMANN INTEG 5 ANESTH MAR EXTREMITI OF THE ES ANT BLUE TRUNK & PERINEUM NOS EXCISION 10806 HARINI SCHULER HIDRADENI 5 [facility] TIS INC INC AXILLARY COMPLEX REPAIR LEVEL III 67315 [facility] MARGARET PATHOLOGY GROSS&KARLA ROSCOPIC EXAM ECG 05609 HARINI SCHULER ROUTINE 5 [facility] ECG INC INC W/LEAST 12 LDS TRCG ONLY W/O I&R ECG 42862 CARDIOVAS DIRK ROUTINE 5 CULAR MAT ECG CONSULTAN W/LEAST TS O 12 LDS I&R ONLY LOCM Q9967 HARINI SCHULER 300-399 5 [facility] MG/ML INC INC IODINE CONCENTRA TION PER ML RADIOLOGI 43973 HARINI SCHULER C EXAM 5 [facility] CHEST 2 INC INC VIEWS FRONTAL&[place] [address] HARINI SCHULER ANGIOGRAP 5 [facility] HY HEAD INC INC W/CONTRAS T/[place] [address] HARINI SCHULER THYROID 5 [facility] STIMULATI INC INC NG HORMONE TSH CV STRS 67047 CARDIOVAS DIRK TST 5 CULAR MAT XERS&/OR CONSULTAN RX CONT TS O ECG I&R ONLY CV STRS 96398 HARINI SCHULER TST 5 [facility] XERS&/OR INC INC RX CONT ECG TRCG ONLY CV STRS 64995 [facility] FALLUJI TST 5 PHYSICIAN EDIN XERS&/OR S GROUP RX CONT ECG W/O I&R COMPREHEN 85375 HARINI SCHULER SIVE 5 [facility] METABOLIC INC INC PANEL BILIRUBIN 71211 HARINI SCHULER DIRECT 5 [facility] INC INC COLLECTIO 96143 HARINI SCHULER N VENOUS 5 [facility] BLOOD INC INC VENIPUNCT URE ECHO 99324 KASEY MATT TTC R-T 5 MEDICAL FELISHA 2D SERV W/WOM-MOD FOUNDATIO E COMPL N SPEC&COLR D BLOOD 23646 HARINI SCHULER COUNT 5 [facility] COMPLETE INC INC AUTO&AUTO DIFRNTL WBC NATRIURET 56677 HARINI SCHULER IC 5 [facility] PEPTIDE INC INC LIPID 90349 HARINI SCHULER PANEL 5 [place] [address] HARINI SCHULER THYROXINE 5 [facility] TOTAL INC INC BRNCDILAT 64383 HARINI SCHULER RSPSE 5 [facility] SPMTRY INC INC PRE&POST- BRNCDILAT ADMN GAS 54617 HARINI SCHULER DILUT/WAS 5 [facility] HOUT LUNG INC INC VOL W/[place] DISTRIB VENT&[place] [address] HARINI SCHULER DIFFUSING 5 [facility] CAPACITY INC INC ECG 60106 HARINI SCHULER ROUTINE 5 [facility] ECG INC INC W/LEAST 12 LDS TRCG ONLY W/O I&R ECG 08972 CARDIOVAS DIRK ROUTINE 5 CULAR MAT ECG CONSULTAN W/LEAST TS O 12 LDS I&R ONLY INJECTION J1040 [facility] ANGEL LUIS 4 PHYSICIAN KARLA METHYLPRE S GROUP DNISOLONE ACETATE 80 MG THERAPEUT 55417 [facility] ANGEL LUIS IC 4 PHYSICIAN KARLA PROPHYLAC S GROUP TIC/DX INJECTION SUBQ/IM OPHTH 92147 [facility] 4 GRE GRE XM&EVAL COMPRE NEW PT 1/> VST DOP 73504 [facility] ECHOCARD 4 NE [facility] COLOR MEDICAL FLOW G VELOCITY MAPPING ECHO 78546 [facility] TRANSESOP 4 NE [facility] HAG R-T MEDICAL 2D W/PRB G IMG ACQUISJ I&[place] [address] HARINI SCHULER 2 VIEWS 4 [facility] FRNT & INC INC LAT APICAL LORDOTIC PX DOPPLER 54547 [facility] ECHOCARD 4 NE [facility] PULSE MEDICAL WAVE G W/SPECTRA L DISPLAY RADIOLOGI 31171 [facility] C EXAM 4 MEDICAL SHREYA CHEST 2 IMAGING VIEWS ASS FRONTAL&L ATERAL ECHO 88720 ARREDONDO ILEANA ARREDONDO ILEANA TTHRC R-T 4 2D W/WOM-MOD E COMPL SPEC&[place] [address] HARINI SCHULER TROPONIN 4 [facility] QUANTITAT INC INC MARYLOU BLOOD 18651 HARINI SCHULER COUNT 4 [facility] COMPLETE INC INC AUTO&AUTO DIFRNTL WBC CREATINE 65132 HARINI SCHULER KINASE MB 4 [facility] FRACTION INC INC ONLY COMPREHEN 05769 HARINI SCHULER SIVE 4 [facility] METABOLIC INC INC PANEL CREATINE 83640 HARINI SCHULER KINASE 4 [facility] TOTAL INC INC CULTURE 98662 HARINI SCHULER FNGI 4 [facility] MOLD/YEAS INC INC T PRSMPTV OTH XCPT BLOOD CUL BACT 68975 HARINI SCHULER XCPT 4 [facility] URINE INC INC BLOOD/STO OL AEROBIC ISOL BLOOD 53090 [facility] COUNT 4 [facility] AUTO&AUTO DIFRNTL WBC INCISION 36226 SWINEY SWINEY & REMOVAL 4 PAT PAT FOREIGN BODY SUBQ TISS SIMPLE CYTP C/V 17152 PICKLESIM PICKLESIM AUTO THIN 4 ER JR GIULIA ER JR GIULIA [place] [address] ALANIZ ALANIZ ABDOMEN & 4 OLGA LIDIA OLGA LIDIA PELVIS W/O CONTRAST MATERIAL RADIOLOGI 08648 ALANIZ ALANIZ C EXAM 4 OLGA LIDIA OLGA LIDIA CHEST 2 VIEWS FRONTAL&L ATERAL ECG 00991 SW[facility] SWINEY ROUTINE 4 PAT PAT ECG W/LEAST 12 LDS I&R ONLY RADIOLOGI 64075 SWINEY SWINEY C 4 PAT PAT EXAMINATI ON CHEST SINGLE VIEW FRONTAL RADIOLOGI 25925 SAVANNA SAVANNA C 4 RHO RHO EXAMINAT[place] [address] SAVANNA SAVANNA ABDOMEN & 4 RHO RHO PELVIS W/CONTRAS T MATERIAL OSTEOPATH 13206 PRIMARY YEMI, IC 9 HEALTH MARY M MANIPULAT ASSOCIATE MARYLOU TX S PSC 1-2 BODY REGIONS ECG 40765 CARDIOLOG JOVEL, ROUTINE 9 Y ALAN A ECG ASSOCIATE W/LEAST S OF 12 LDS [place] I&[place] [address] [facility] [place] EVIN, HEAD/BRAI 9 RADIOLOGY SIMONA D N W/O CONTRAST MATERIAL RADIOLOGI 95176 [facility] KASEY Konstantin BAZAN C EXAM 9 RADIOLOGY T CHEST 2 VIEWS FRONTAL&L ATERAL ECG 07561 PRIMARY YEMI, ROUTINE 9 HEALTH MARY M ECG ASSOCIATE W/LEAST S PSC 12 LDS W/I&R ECG 21810 CARDIOLOG JOVEL, ROUTINE 9 Y ALAN A ECG ASSOCIATE W/LEAST S OF 12 LDS [place] I&R ONLY ECG 64676 [facility], ROUTINE 9 DERIC ASIF C ECG EMERGENCY W/LEAST PHYS INC 12 LDS I&R ONLY BLOOD 72495 [facility] COUNT 9 [facility] AUTO&[place] [address] [facility] TROPONIN 9 [facility] MARYLOU GROUND A0425 [facility] MILEAGE 9 [facility] MILE RADIOLOGI 97877 [facility] C 9 [facility] ON CHEST S[place] FRONTAL BASIC 79345 [facility] METABOLIC 9 [facility] CALCIUM TOTAL AMB A0427 [facility] SERVICE 9 [facility] EMERGENCY EMS EMS TRANSPORT LEVEL 1 ECG 86066 [facility] ROUTINE 9 [facility] W/LEAST 12 LDS TRCG ONLY W/O I&R CREATINE 80690 [facility] KINASE 9 [facility] FIBRIN 54162 [facility] DGRADJ 9 [facility] D-DIMER QUAL/SEMI SONYA COLLECTIO 41027 [facility] N VENOUS 9 [facility] [place] [address] [facility] INFUSION 9 [facility] INITIAL 31 MIN-[place] [address] [place] INFUSION 9 [facility]OSPITAL [place] [address] [facility] THYROID 9 [facility] NG [place] T[place] PELVIS 26304 [facility] 8 [facility] [place] [address] [facility] ABDOMEN 8 [facility] T MATERIAL ESOPHAGOG 68880 FU- FU- ASTRODUOD 8 ZACHARY, ZACHARY, ENOSCOPY ROSLYN ROSLYN TRANSORAL DIAGNOSTI C ANES 71460 [place] DEPA, UPPER GI 8 ANESTHESI MARTINEZ ENDOSCOPY A GROUP PROXIMAL PSC TO DUODENUM HEPATBL 28421 [facility] ROBERT ESTRADA SYJavier 8 RADIOLOGY J IMG GLBLDR RADEX 78143 [facility] UPPER GI 8 [facility]PITAL GLUCAGON/ DELAY IMG[place] [address] [facility] KASEY ARRIOLA, TRACT 8 RADIOLOGY JEREMY Purcell UPPER W/WO DELAYED IMAGES W/O KUB BASIC 31495 [facility] METABOLIC 8 [facility] CALCIUM TOTAL HEMOGLOBI 83368 [facility] N [address] [place] [address] MIQUEL A1C HEPATIC 16631 [facility] FUNCTION 8 [facility] LIPID 95735 [facility] PANEL [address] [place] [address] BLOOD 36296 [facility] COUNT [address] [facility] AUTO&AUTO DIFRNTL WBC SEDIMENTA 16355 [facility] TION RATE 8 [facility] NON-AUTOM ATED SCREENING 23905 CNTRLucina BOLTON RADIOLOGY J MAMMOGRAP HY BILATERAL COLLECTIO 06629 [facility] N VENOUS 8 [facility] VENIPUNCT URE COMPUTER- 91830 [facility] SAMREEN ESTRADA 8 RADIOLOGY J DETECTION S[place] [address] [facility] THYROID 8 [facility] [place] [address] [facility] [place] CHINTAN, ABDOMINAL 8 RADIOLOGY J REAL TIME W/IMAGE LIMITED DOP 19424 CARDIOLOG JOVEL, ECHOCARD 8 Y ALAN A COLOR ASSOCIATE FLOW S OF VELOCITY [place] MAPPING ECHO 10147 CARDIOLOG JOVEL, TRANSTHOR 8 Y ALAN A AC R-T 2D ASSOCIATE W/WO S OF M-MODE [place] REC COMP DOPPLER 29238 CARDIOLOG JOVEL, ECHOCARD 8 Y ALAN A PULSE ASSOCIATE WAVE S OF W/SPECTRA [place] L DISPLAY Encounters Encounter Start End Date Code Location Performer Type Date OFFICE 14728 [facility] RIGO GRANADOS 7 7 PHYSICIAN T VISIT S GROUP 15 MINUTES EMERGENCY 02875 SELENA LIZ DEPT 7 7 PHYSICIAN VISIT S, PLLC HIGH SEVERITY& THREAT FUNCJ EMERGENCY 42581 HARINI 7 7 [facility] DEPARTMEN INC T VISIT HIGH/URGE NT SEVERITY HOSPITAL [facility]I - 7 7 [facility] OUTPATIEN INC T HOSPITAL HAR[facility]I - 7 7 [facility] OUTPATIEN INC T OFFICE 28115 [facility] JENNIFER GRANADOS 7 7 PHYSICIAN T VISIT S GROUP 25 MINUTES EMERGENCY 66126 HARINI 7 7 [facility] DEPARTMEN INC T VISIT LOW/MODER SEVERITY HOSPITAL HARINI - 7 7 [facility] OUTPATIEN INC T EMERGENCY 71529 SELENA FORD 7 7 PHYSICIAN JR DEPARTMEN S, [facility] T VISIT HIGH/URGE NT SEVERITY EMERGENCY 81256 HARINI 7 7 [facility] DEPARTMEN INC T VISIT HIGH/URGE NT SEVERITY HOSPITAL HARINI - 7 7 [facility] OUTPATIEN INC T EMERGENCY 06443 SELENA HEIN DEPT 7 7 PHYSICIAN VISIT S, PLLC HIGH SEVERITY& THREAT FUNCJ EMERGENCY 58164 HARINI 6 6 [facility] DEPARTMEN INC T VISIT LIMITED/M [facility]OR [facility] HOSPITAL HARINI - 6 6 [facility] OUTPATIEN INC T EMERGENCY 00947 SELENA LIZ 6 6 PHYSICIAN DEPARTMEN S, [facility] T VISIT LOW/MODER SEVERITY OFFICE 95987 [facility] HARPEL OUTPATIEN 6 6 PHYSICIAN ISH T VISIT S GROUP 15 MINUTES HOSPITAL HARINI - 6 6 [facility] OUTPATIEN INC T EMERGENCY 66740 [facility] SWINE[facility] 6 6 DERIC PAT DEPARTMEN EMERGENCY T VISIT PHYS MODERATE SEVERITY EMERGENCY 89756 SELENA MULLINS 6 6 PHYSICIAN U SHREYA DEPARTMEN S, [facility] T VISIT MODERATE SEVERITY EMERGENCY 55582 [facility] SWINEY DEPT 6 6 DERIC PAT VISIT EMERGENCY HIGH PHYSI SEVERITY& THREAT [facility] - 6 6 [facility] OFFICE 98521 [facility] K[facility]ERON TOD OUTPATIEN 6 6 PHYSICIAN T VISIT S GROUP 10 MINUTES OFFICE 05462 [facility] HAR[facility] OUTPATIEN 6 6 PHYSICIAN ISH T VISIT S GROUP 15 MINUTES OFFICE 10999 [facility] K[facility] TOD OUTPATIEN 6 6 PHYSICIAN T VISIT S GROUP 10 MINUTES HOSPITAL HARINI - 6 6 [facility] OUTPATIEN INC T OFFICE 39406 [facility] TOD OUTPATIEN 6 6 PHYSICIAN T VISIT S GROUP 10 MINUTES OFFICE 86354 ELIO RODRIGUEZ OUTPATIEN 6 6 JENNIFER DENG T VISIT 15 MINUTES [facility] HARINI - 6 6 [facility] OUTPATIEN INC HOSPITAL HARINI - 6 6 [facility] OUTPATIEN INC T OFFICE 36668 [facility] OUTPATIEN 6 6 PHYSICIAN ISH T VISIT S GROUP 25 MINUTES HOSPITAL HARINI - 6 6 [facility] OUTPATIEN INC T OFFICE 02014 [facility] HAR[facility] OUTPATIEN 6 6 PHYSICIAN ISH T VISIT S GROUP 25 MINUTES OFFICE 81065 ELIO RODRIGUEZ OUTPATIEN 6 6 JENNIFER DENG T VISIT 25 MINUTES HOSPITAL HARINI - 6 6 [facility] OUTPATIEN INC T INITIAL 57366 ELIO RODRIGUEZ PREVENTIV 6 6 JENNIFER DENG E MEDICINE NEW PATIENT 40-64YRS EMERGENCY 62859 HARINI 6 6 [facility] DEPARTMEN [facility] T VISIT MODERATE SEVERITY HOSPITAL HARINI - 6 6 [facility] OUTPATIEN [facility] T EMERGENCY 48768 SELENA HEIN 6 6 PHYSICIAN [facility] S, [facility] T VISIT HIGH/URGE NT SEVERITY OFFICE 55132 [facility] DIRK OUTPATIEN 6 6 PHYSICIAN MAT T VISIT S GROUP 25 MINUTES HOSPITAL HARINI - 6 6 [facility] HARINI - 6 6 [facility]PATIEN [facility] T OFFICE 15722 [facility] TOD OUTPATIEN 6 6 PHYSICIAN T VISIT S GROUP 15 MINUTES EMERGENCY 07692 HARINI 6 6 [facility] DEPARTMEN [facility] T VISIT HIGH/URGE NT SEVERITY EMERGENCY 75327 SELENA MULLINS DEPT 6 6 PHYSICIAN U SHREYA VISIT S, [facility] HIGH SEVERITY& THREAT [facility] HOSPITAL HARINI - 6 6 [facility] OUTPATIEN INC T HOSPITAL HARINI - 6 6 [facility] OUTPATIEN INC T OFFICE 42174 [facility] TOD OUTPATIEN 6 6 PHYSICIAN T VISIT S GROUP 15 MINUTES HOSPITAL HARINI - 6 6 [facility] OUTPATIEN [facility]PITAL HARINI - 5 5 [facility]PATIEN [facility] T OFFICE 22071 [facility] TOD OUTPATIEN 5 5 PHYSICIAN T VISIT S GROUP 15 MINUTES [facility] HARINI - 5 5 [facility] OUTPATIEN [facility] HARINI - 5 5 [facility]EN [facility] T OFFICE 50834 [facility] TOD OUTPATIEN 5 5 PHYSICIAN T VISIT S GROUP 15 MINUTES [facility] HARINI - 5 5 [facility] OUTPATIEN [facility] OFFICE 24574 [facility] OUTPATIEN 5 5 PHYSICIAN T [facility]ISIT S GROUP 15 MINUTES [facility] HAR[facility] - 5 5 [facility] HAR[facility] - 5 5 [facility] T OFFICE 18314 [facility] OUTPATIEN 5 5 PHYSICIAN T VISIT S GROUP 15 MINUTES [facility] HARINI - 5 5 [facility] EMERGENCY 02138 [facility] GARETT II DEPT 5 5 DERIC O VISIT EMERGENCY HIGH PHYS SEVERITY& THREAT [facility] OFFICE 56159 [facility] TOD CONSULTAT 5 5 PHYSICIAN ION S GROUP NEW/ESTAB PATIENT 30 MIN EMERGENCY 54746 [facility]COIS [facility] T VISIT PHYS HIGH/URGE NT SEVERITY [facility]Y 78498 [facility] HIGH SEVERITY& THREAT [facility] EMERGENCY 99698 [facility] CELLAROSI 5 5 DERIC - YORBA DEPARTMEN EMERGENCY PAT T VISIT PHYS HIGH/URGE NT SEVERITY [facility] [place] - 5 5 [facility] T OFFICE 61047 [facility] OUTPATIEN 5 5 PHYSICIAN KARLA T VISIT S GROUP 10 MINUTES OFFICE 07948 [facility] OUTPATI[facility] 5 5 PHYSICIAN KARLA T VISIT S GROUP 10 MINUTES [facility] - 5 5 [facility] OFFICE 20938 [facility] OUTPATI[facility] 5 5 PHYSICIAN KARLA T VISIT S GROUP 15 MINUTES [facility] - 5 5 [facility] OFFICE 48164 [facility] TOD CONSULTAT 5 5 PHYSICIAN ION S GROUP NEW/ESTAB PATIENT 40 MIN OFFICE 74556 [facility] OUT[facility] 5 5 PHYSICIAN KARLA T VISIT S GROUP 15 MINUTES OFFICE 17503 [facility] OUTPATIEN 5 5 CULAR MAT T VISIT CONSULTAN 15 TS O MINUTES [facility] - 5 5 [facility] - 5 5 [facility] - 5 5 [facility] - 5 5 [facility] - 5 5 [facility]EN [facility] OFFICE 64362 [facility]IRK OUTPATIEN 5 5 CULAR MAT T NEW 60 CONSULTAN MINUTES TS O EMERGENCY 01911 [facility] 4 [facility] OLGA LIDIA DEPARTMEN EMERGENCY T VISIT PHYS MODERATE SEVERITY OFFICE 32024 [facility] OUTPATIEN 4 4 PHYSICIAN KARLA T VISIT S GROUP 15 MINUTES EMERGENCY 45254 [facility] 4 4 DERIC DEPARTMEN EMERGENCY T VISIT PHYS MODERATE SEVERITY OFFICE 66796 [facility] OUTPATIEN 4 4 PHYSICIAN KARLA T VISIT S GROUP 10 MINUTES [facility] - 4 4 [facility] - 4 4 [facility] OUTPATIEN [facility] OFFICE 01053 [facility] RINCONUAMILCAR OUTPATIEN 4 4 EDINSilvia JANGZ T VISIT 25 MINUTES [facility] - 4 4 [facility] OUTPATIEN [facility] HAR[facility] - 4 4 [facility] OUTPATIEN [facility] OFFICE 10985 [facility]IN OUTPATIEN 4 4 KARLA KARLA T VISIT 25 MINUTES EMERGENCY 36731 [facility] SWINEY 4 4 [facility] T VISIT HIGH/URGE NT SEVERITY [facility]OSPITAL MAGDY - 4 4 [facility]GENC[facility] 50285 [facility] T VISIT MODERATE SEVERITY OFFICE 96434 [facility] OUTPATIEN 4 4 [facility]COM MALCMO T NEW 45 MINUTES OFFICE 72580 FILIBERTO DE LOS [place]ANTOS JR OUTPATIEN 4 4 YANNI YANNI T NEW 30 MINUTES EMERGENCY 55664 GARETT II GARETT II 4 4 [facility] T VISIT HIGH/URGE NT SEVERITY EMERGENCY 01053 SWINEY SWINEY DEPT 4 4 PAT PAT VISIT HIGH SEVERITY& THREAT FUNCJ OFFICE 67923 BOO AHDDAD OUTPATIEN 9 9 , KAYDEN MONQIUE T VISIT 15 MINUTES OFFICE 72805 [facility]UL[facility] CONSULTAT 9 9 , KAYDENKAYDEN Purcell ION NEW/ESTAB PATIENT 60 MIN OFFICE 21071 PRIMARY DARWIN BRAGG 9 9 [facility] T VISIT ASSOCIATE 15 S PSC MINUTES OFFICE 53731 PRIMARY YEMI OUTPATIEN 9 9 [facility] T VISIT ASSOCIATE 15 S PSC MINUTES EMERGENCY 28170 [facility] GARETT DEPT 9 9 DERIC VISIT EMERGENCY HIGH PHYS INC SEVERITY& THREAT FUNCJ OFFICE 15403 PRIMARY KARI BRAGGPATIEN 9 9 [facility] T VISIT ASSOCIATE 15 S PSC MINUTES OFFICE 37733 PRIMARY MIRI BRAGGEN 9 9 [facility] T [facility]ISIT ASSOCIATE 25 S PSC MINUTES [facility]ER[facility] 77717 [facility] DEPT 9 9 DERIC ASIF C VISIT EMERGENCY HIGH PHYS INC SEVERITY& THREAT FUNCJ EMERGENCY 71829 MCKINNEY 9 9 [facility] T VISIT MODERATE SEVERITY OFFICE 55023 PRIMARY MIRI BRAGGEN 8 8 [facility] 15 S PSC MINUTES [facility] T OFFICE 89715 PRIMARY KARI BRAGGPATIEN 8 8 [facility] T VISIT ASSOCIATE 15 S PSC MINUTES OFFICE 93554 ALLRAN ALLRAN OUTPATIEN 8 8 JR TAHIRA, T VISIT NGOC [place] 15 MINUTES OFFICE 66761 PRIMARY MIRI BRAGGEN 8 8 [facility] 25 S PSC MINUTES [facility] [place] [facility] 8 8 [facility] OFFICE 43988 ALLRAN ALLRAN CONSULTAT 8 8 JR TAHIRA, ION NGOC Hubbard NEW/ESTAB PATIENT 60 MIN OFFICE 01174 PRIMARY KARI BRAGGPATIEN 8 8 [facility] 15 S PSC MINUTES [facility] 8 [facility] T OFFICE 05298 PRIMARY DARWIN BRAGG 8 8 [facility] 25 S PSC MINUTES OFFICE 30093 PRIMARY DARWIN BRAGG 8 8 [facility] S PSC
--- OUTSIDE RECORDS SUMMARY | 2016-12-29 16:47 | External Medical Summary Rpt | CCD ---
Author Author , AMRITA Organization AMRITA Address Unknown Phone [email or web address] Care Team Providers Care Relocation Counselor Name Role Phone NGOC BARRERA JR, Unavailable Unavailable NGOC BARRERA JR, J, Unavailable Unavailable Eliel WOODSON BEINEKE Unavailable Unavailable SHREYA DUGGAN, FRANCOIS Unavailable Unavailable OLGA LIDIA BESSON ILEANA, BESSON Unavailable Unavailable ILEANA [facility] Unavailable Unavailable [facility], [facility] LANDEROS, LANDEROS Unavailable Unavailable LANDEROS ALL, LANDEROS ALL Unavailable Unavailable [facility] Unavailable Unavailable [facility], [facility] MARY BRAGG, Unavailable Unavailable MARY BRAGG FIGUEROA SHAW, FIGUEROA Unavailable Unavailable [facility] Unavailable Unavailable [facility], [facility] JEREMY ARRIOLA, Unavailable Unavailable JEREMY ARRIOLA CELLAROSI - YORBA [...] Unavailable DEPA, MARTINEZ, DEPA, Unavailable Unavailable MARTINEZ LEDESMA BENJAMIN, LEDESMA BENJAMIN Unavailable Unavailable BAZAN, G T, BAZAN, G Unavailable Unavailable T FALLUJI EDIN, FALLUJI Unavailable Unavailable EDNI FALLUJI EDIN, FALLUJI Unavailable Unavailable EDIN YMLIANE, FRYMAN Unavailable Unavailable JR FORD FULLER, Unavailable Unavailable JR ANGEL LUIS, ANGEL LUIS Unavailable Unavailable ANGEL LUIS KARLA, ANGEL LUIS Unavailable Unavailable KARLA ANGEL LUIS KARLA, ANGEL LUIS Unavailable Unavailable KARLA ELIO RODRIGUEZ MD, Unavailable Unavailable ELIO CORRALES RHO, SAVANNA Unavailable Unavailable RHO SAVANNA, FORREST G, Unavailable Unavailable SAVANNA, FORREST G SIMONA CLEARY, Unavailable Unavailable SIMONA CLEARY HARPEL, HARPEL Unavailable Unavailable HARPEL ISH, HARPEL Unavailable Unavailable ISH JEANA WITT, Unavailable Unavailable WITTJEANA LEDEZMA [facility] Unavailable Unavailable INC, [facility], Unavailable Unavailable [facility] HORMANN MAR, HORMANN Unavailable Unavailable [facility] Unavailable Unavailable SERVICES O, [facility] HOUSMAN YANNI, HOUSMAN Unavailable Unavailable YANNI FU-ZACHARY, Unavailable Unavailable ROSLYN, TANK-ZACHARY, ROSLYN [facility] JACQUELINE [facility]ILIA[facility] Unavailable Unavailable [facility], [facility] AUGUSTINE JR DWI, AUGUSTINE Unavailable Unavailable JR DWI ULLOA MARGARET, ULLOA Unavailable Unavailable MARGARET MARCHINO ILEANA, Unavailable Unavailable MARCHINO ILEANA [facility], Unavailable Unavailable [facility], Unavailable Unavailable [facility] Unavailable Unavailable EMS, [facility] Unavailable Unavailable PLL[facility], [facility] PICKLESIMER JR GIULIA, Unavailable Unavailable PICKLESIMER JR GIULIA PICKLESIMER JR GIULIA, Unavailable Unavailable [facility] KAMERON TOD, KAMERON TOD Unavailable Unavailable RENUSCH, RENUSCH Unavailable Unavailable [id number], Unavailable Unavailable [id number] CHAD HADDADL, Unavailable Unavailable SCHULSTFRIDA, KAYDEN DIRK MAT, Unavailable Unavailable DIRK MAT SOKAN BAB, SOKAN BAB Unavailable Unavailable [facility] Unavailable Unavailable [facility], [facility] Unavailable Unavailable [facility], [facility] SHREYA, Unavailable Unavailable SOTINGEANU SHREYA [facility] Unavailable Unavailable EMERGENCY PHYS, [facility] Unavailable Unavailable EMERGENCY PHYSI, [facility] ALFREDITO, ALFREDITO Unavailable Unavailable ALFREDITO SHE, Unavailable Unavailable ALFREDITO SHE ALANIZ OLGA LIDIA, Unavailable Unavailable ALANIZ OLGA LIDIA ALANIZ OLGA LIDIA, Unavailable Unavailable ALANIZ OLGA LIDIA SWINEY PAT, SWINEY Unavailable Unavailable PAT SWINEY PAT, SWINEY Unavailable Unavailable PAT [facility] Unavailable Unavailable [id number], [id number], [facility]available Unavailable [id number], Unavailable Unavailable [facility] ASIF SHANKAR, Unavailable Unavailable ASIF SHANKAR Purpose Continuity of Care Document - 09-17-2007 through 2016 Problems Code Diagnosis DOS Provider Status R1030 LOWER 11-02-2016 [facility] ABDOMINAL PHYSICIANS PAIN GROUP UNSPECIFIED I10 ESSENTIAL 10-24-2016 [facility] HYPERTENSIO INC N K219 GASTRO-ESOP 10-24-2016 [facility] DISEASE INC WITHOUT ESOPHAGITIS R1011 RIGHT UPPER 10-24-2016 [facility] R1013 EPIGASTRIC 10-24-2016 [facility] R1031 RIGHT LOWER 10-24-2016 [facility] PAIN PLL Z720 TOBACCO USE 10-24-2016 [facility] E039 HYPOTHYROID 10-16-2016 [facility] ISM [facility] UNSPECIFIED INC K588 OTHER 09-04-2016 [facility] IRRITABLE PHYSICIANS BOWEL GROUP SYNDROME R102 PELVIC AND 09-04-2016 [facility] PERINEAL PHYSICIANS PAIN GROUP M5136 OTH 06-16-2016 [facility] DEGEN LUMBAR REGION M5442 LUMBAGO 06-16-2016 [facility] WITH [facility]YSICIANS, SCIATICA PLLC LEFT SIDE M545 LOW BACK 06-16-2016 [facility] O600TBP SPRAIN 06-16-2016 [facility] LIGAMENTS PHYSICIANS, LUMBAR PLLC SPINE INITIAL ENCOUNTER 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 06-16-2016 [facility] K52212 HORMONE 06-16-2016 [facility] REPLACEMENT [facility] THERAPY INC M32470 OTHER LONG 06-16-2016 [facility] TERM [facility] CURRENT INC DRUG THERAPY Z886 ALLERGY 06-16-2016 [facility] STATUS TO [facility] ANALGESIC INC AGENT STATUS Z889 ALLERGY 06-16-2016 [facility] STATUS UNS [facility] RX MEDS & INC BIOLOG SUBSTANC STS M5116 INTERVERTEB 06-03-2016 [facility] RAL DISC PHYSICIANS, D/O PLLC W/RADICULOP ATHY LUMB RGN M5416 RADICULOPAT 06-03-2016 [facility] LUMBAR [facility] REGION INC R0189OF CONTUSION 12-28-2016 [facility] OF LEFT PHYSICIANS, LOWER LEG PLLC INITIAL ENCOUNTER I92541 PERSONAL 03-15-2016 [facility] HISTORY OF [facility] NICOTINE INC DEPENDENCE N951 MENOPAUSAL 01-31-2016 [facility] AND FEMALE PHYSICIANS CLIMACTERIC GROUP STATES H109 UNSPECIFIED 12-16-2015 [facility] EMERGENCY CONJUNCTIVI PHYS TIS G4733 OBSTRUCTIVE 11-25-2015 [facility] APNEA ADULT MEDICAL PEDIATRIC EQUIPME E860 DEHYDRATION 11-17-2015 [facility] R05 COUGH 11-17-2015 [facility] R079 CHEST PAIN 11-17-2015 [facility] N179 ACUTE 11-16-2015 [facility] FAILURE SERVICES O UNSPECIFIED [id number] TOXIC 11-16-2015 [facility]OSPITAL EFFECT OT MEDICINE TOBACCO & SERVICES O NICOTINE ACC INIT ENC G629 POLYNEUROPA 11-14-2015 [facility] J449 CHRONIC 11-14-2015 [facility] DISEASE UNS N170 ACUTE RENAL 11-14-2015 [facility] WITH HOSPITAL TUBULAR NECROSIS R110 NAUSEA 11-14-2015 [facility] R473ACM HEAT 11-14-2015 [facility] UNSPECIFIED PHYSI INITIAL ENCOUNTER L732 HIDRADENITI 11-09-2015 [facility] S PHYSICIANS SUPPURATIVA GROUP N736 FEMALE 10-21-2015 [facility] PELVIC PHYSICIANS PERITONEAL GROUP ADHESIONS POSTINFECTI VE R1032 LEFT LOWER 10-18-2015 [facility] QUADRANT PHYSICIANS PAIN GROUP K5900 CONSTIPATIO 10-07-2015 [facility] MEDICAL UNSPECIFIED IMAGING ASS R109 UNSPECIFIED 10-07-2015 [facility] ABDOMINAL ANESTH OF PAIN THE BLUE D481 NEOPLASM 08-05-2015 ELIO RODRIGUEZ MD [facility] CONNCTIVE & OTH SOFT TISS I083 COMB 08-03-2015 [facility] AORTC & TRICUSPID VALVES I350 NONRHEUMATI 08-03-2015 [facility] [place] VALVE INC STENOSIS N761 SUBACUTE 07-05-2015 [facility] AND CHRONIC PHYSICIANS VAGINITIS GROUP N74116 ENCOUNTER 07-05-2015 [facility] PREPROCEDUR INC AL LABORATORY EXAM O32787 ENCOUNTER 05-13-2015 ELIO Fry EXECUTIVE OFFICER EXAM JENNIFER ESQUIVEL GENERAL RTN W/O ABNORMAL FIND Z1212 ENCOUNTER 05-13-2015 ELIO RODRIGUEZ MD MALIGNANT NEOPLASM RECTUM E785 HYPERLIPIDE 05-11-2015 [facility] QUINTIN PHYSICIANS UNSPECIFIED GROUP G4730 SLEEP APNEA 05-11-2015 [facility] PHYSICIANS UNSPECIFIED GROUP I119 HYPERTENSIV 05-11-2015 [facility] E HEART PHYSICIANS DISEASE GROUP WITHOUT HEART FAILURE I209 ANGINA 05-11-2015 [facility] PECTORIS PHYSICIANS UNSPECIFIED GROUP I2510 ASHD [place] 05-11-2015 [facility] 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 R0600 DYSPNEA 05-11-2015 [facility] UNSPECIFIED PHYSICIANS GROUP E669 OBESITY 04-30-2015 [facility]NSPECIFIED [facility] INC R9439 ABNORMAL 04-30-2015 [facility] RESULT OT [facility] CARDIOVASCU INC LR FUNCTION STUDY Z6841 BODY MASS 04-30-2015 [facility] INDEX BMI [facility]OS[facility] 40.0-44.9 INC ADULT Q03415 ENCOUNTER 04-28-2015 [facility] FOR OTHER MEM [facility] PREPROCEDUR INC AL EXAMINATION K529 NONINFECTIV 04-05-2015 [facility] E [facility]YSICIANS, GASTROENTER PLLC ITIS & COLITIS UNS R0683 SNORING 04-05-2015 [facility] INC R5383 OTHER 04-05-2015 [facility] FATIGUE [facility] INC I712 THORACIC 04-01-2015 [facility] AORTIC SERV ANEURYSM FOUNDATION WITHOUT RUPTURE N8320 UNSPECIFIED 03-23-2015 [facility]STS [facility] N644 MASTODYNIA 03-05-2015 [facility] R928 OTH ABNORM 03-05-2015 [facility] & MEDICAL INCONCLUSIV IMAGING ASS E FIND ON DX IMAG BREAST D164 BENIGN 01-11-2015 [facility] NEOPLASM OF PHYSICIANS BONES OF GROUP SKULL AND FACE N6452 NIPPLE 01-11-2015 [facility] DISCHARGE PHYSICIANS GROUP M899 DISORDER OF 12-18-2014 [facility] BONE [facility]ICAL UNSPECIFIED IMAGING ASS R220 LOCALIZED 12-18-2014 [facility] SWELLING [facility] MASS AND IMAGING ASS LUMP HEAD 217 BENIGN 11-26-2014 [facility] NEOPLASM OF PHYSICIANS BREAST GROUP 6101 DIFFUSE 11-26-2014 [facility] MASTOPATHY 6102 FIBROADENOS 11-26-2014 [facility] IS OF [facility] BREAST 16391 OTHER SIGN 11-26-2014 [facility] AND SYMPTOM ANESTH OF IN BREAST THE BLUE 70509 OTHER 11-26-2014 [facility] SPECIFIED [facility] DISORDERS OF BREAST 7062 SEBACEOUS 11-26-2014 [facility] CYST ANESTH OF THE BLUE 7820 DISTURBANCE 11-16-2014 [facility] OF SKIN PHYSICIANS SENSATION GROUP 5368 DYSPEPSIA&O 11-07-2014 [facility] THER SPEC N EMERGENCY DISORDERS PHYS FUNCTION STOMACH 50341 ABDOMINAL 11-07-2014 [facility] PAIN, LEFT N EMERGENCY UPPER PHYS QUADRANT 59098 OBST 10-23-2014 [facility] CHRON[facility] N EMERGENCY BRONCHITIS PHYS W/ACUTE BRONCHITIS 64397 SHORTNESS 10-23-2014 [facility] [place] OF BREATH RADIOLOGY 4019 UNSPECIFIED 10-19-2014 [place] [facility] N 462 ACUTE 10-19-2014 [facility] PHARYNGITIS [facility] 28955 ASTHMA, 10-19-2014 [facility] UNSPECIFIED N EMERGENCY , PHYS UNSPECIFIED STATUS 61631 WHEEZING 10-19-2014 [facility] N EMERGENCY PHYS 53795 CHEST PAIN 10-19-2014 [facility] V145 PERSONAL 10-19-2014 [place] HISTORY OF COMMUNITY ALLERGY TO HOSPITAL NARCOTIC AGENT V146 PERSONAL 10-19-2014 [place] HISTORY OF COMMUNITY ALLERGY TO HOSPITAL ANALGESIC AGENT V5866 LONG-TERM 10-19-2014 [place] USE OF [facility] V5869 LONG-TERM 10-19-2014 [place] (CURRENT) COMMUNITY USE OF HOSPITAL OTHER MEDICATIONS 6110 INFLAMMATOR 09-24-2014 [facility] Y DISEASE PHYSICIANS OF BREAST GROUP 60359 MASTODYNIA 07-23-2014 [facility] 87416 OTHER 07-23-2014 [facility] ABNORMAL MEDICAL FINDING IMAGING ASS RADIOLOGICA L EXAM BREAST 94766 PAIN IN 07-20-2014 [facility] JOINT PHYSICIANS PELVIC GROUP REGION AND THIGH 20753 HIDRADENITI 05-15-2014 [facility] 10675 OBESITY, 04-21-2014 [facility] UNSPECIFIED PHYSICIANS GROUP 7243 SCIATICA 04-21-2014 [facility] PHYSIC[facility]ANS GROUP 4241 AORTIC 04-14-2014 [facility]VE [facility] DISORDERS INC 10358 OCCLUSION&S 04-14-2014 [facility] CAROTID ART CONSULTANTS W/O O MENTION INFARCT 496 CHRONIC 04-14-2014 [facility] AIRWAY LAR OBSTRUCTION CONSULTANTS NEC O 4259 UNSPECIFIED 04-09-2014 [facility]ONDARY [facility] CARDIOMYOPA INC THY 4280 CONGESTIVE 04-09-2014 [facility] HEART [facility] FAILURE INC UNSPECIFIED 4359 UNSPECIFIED 04-09-2014 [facility]ENT [facility] CEREBRAL IMAGING ASS ISCHEMIA 490 BRONCHITIS 04-09-2014 [facility] NOT [facility] SPECIFIED INC ACUTE OR CHRONIC 07236 SOLITARY 04-09-2014 [facility] PULMONARY [facility] NODULE [facility] ASS V1254 PERSONAL HX 04-09-2014 [facility] TIA & CI [facility] W/O INC RESIDUAL DEFICITS V198 FAMILY 04-09-2014 [facility] OF [facility] OTHER INC CONDITION 4240 MITRAL 04-03-2014 [facility] 4242 TRICUSPID 04-03-2014 [facility] SPEC NONRHEUMATI C 70975 OTHER 04-03-2014 [facility] SPECIFIED [facility] CONGENITAL INC ANOMALY HEART OTHER 81959 OTHER 04-03-2014 [facility] DYSPNEA AND SERV [facility]ATION RESPIRATORY ABNORMALITI ES V1749 FAMILY 03-31-2014 [facility] OF [facility] OTHER INC CARDIOVASCU LAR DISEASES 07461 CONGENITAL 03-24-2014 [facility] [place] OF [place] [address] UNSPECIFIED 02-27-2014 [facility] INFECTIVE N EMERGENCY OTITIS PHYS EXTERNA 7245 UNSPECIFIED 02-25-2014 [facility] BACKACHE PHYSICIANS GROUP 32923 UNS ADVRS 02-25-2014 [facility] EFF OT RX PHYSICIANS MEDICINAL&B GROUP IOLOGICAL SBSTNC 3670 HYPERMETROP 02-23-2014 [facility] 6822 CELLULITIS 01-21-2014 [facility] AND ABSCESS N EMERGENCY OF TRUNK PHYS 59799 PAIN IN 12-29-2013 [facility] JOINT, SITE PHYSICIANS GROUP UNSPECIFIED 7852 UNDIAGNOSED 10-02-2013 [facility] EDIN CARDIAC MURMURS 1120 CANDIDIASIS 07-18-2013 [facility] OF MOUTH [facility] INC 7296 RESIDUAL 07-18-2013 [facility] FOREIGN BODY IN SOFT TISSUE 586 UNSPECIFIED 07-11-2013 [place] [facility] 6824 CELLULITIS& 07-11-2013 [facility] PAT ABSCESS OF HAND EXCEPT FINGERS&MICHELLE MB 9146 HND NO 07-11-2013 [facility] PAT FINGR SUP FB W/O GRANT OPN WND&W/O INF 9147 HAND NO 07-11-2013 [place] [facility] SUP FB W/O HOSPITAL GRANT OPN WOUND INF E915 FOREIGN 07-11-2013 [facility] PAT BODY ACCIDENTALL Y ENTERING OTHER ORIFICE 6250 DYSPAREUNIA 07-03-2013 [facility]COM 6259 UNSPEC 07-03-2013 [facility] SYMPTOM ASSOC W/FEMALE GENITAL ORGANS 6273 POSTMENOPAU 07-03-2013 [facility] MALCOM [facility]ICK ATROPHIC VAGINITIS V7231 ROUTINE 07-03-2013 [facility] GIULIA AL EXAMINATION 20099 COR 06-19-2013 FILIBERTO HOFFMANN ATHEROSLERO YANNI UNSPEC TYPE VESSEL [place]/NEW T 16553 UNSPECIFIED 06-19-2013 FILIBERTO HOFFMANN YANNI ARTHROPATHY SITE UNSPECIFIED 88559 MIXED 06-19-2013 FILIBERTO HOFFMANN INCONTINENC YANNI E URGE AND STRESS 58838 ABDOMINAL 05-03-2013 [facility] PAIN RIGHT OLGA LIDIA LOWER QUADRANT 45546 PAINFUL 04-19-2013 [facility] PAT RESPIRATION 2449 UNSPECIFIED [...] [facility] PSC 7231 CERVICALGIA 11-11-2007 [facility] 97720 ABDOMINAL 11-11-2007 [facility] [place] PAIN, RADIOLOGY UNSPECIFIED SITE 65864 UNSPECIFIED 11-05-2007 [facility] N PSC 34203 ESOPHAGEAL 10-31-2007 [place] [facility] PSC 5533 DIAPHRAGMAT 10-31-2007 [facility] W/O NKLIN, MENTION ROSLYN OBSTRUCTION /GANGREN 90917 ABDOMINAL 10-31-2007 [facility] PAIN, NKLIN, EPIGASTRIC ROSLYN 38504 ABDOMINAL 10-02-2007 [facility] [place] PAIN RIGHT RADIOLOGY UPPER QUADRANT 84364 NAUSEA WITH 09-27-2007 [facility] [place] VOMITING RADIOLOGY 92880 OTHER&UNSPE 09-25-2007 PRIMARY CIFIED DISC [facility] OF LUMBAR PSC REGION 2720 PURE 09-24-2007 [place] HYPERCHOLES [facility] TEROLEMIA [facility] 2777 DYSMETABOLI 09-24-2007 [facility] X HOSPITAL 70967 OTHER 09-24-2007 [facility] V7612 OTHER 09-24-2007 [facility] [place] SCREENING RADIOLOGY MAMMOGRAM 7865 CHEST PAIN 09-19-2007 [facility] Medications Na ND Rx Da Fi Fi Am Da Di Ph RX Ph St me C No te ll ll ou ys ag ar # ys at rm s nt no ma ic us Or Da si cy ia de te s n re d GA 16 09 09 90 30 00 EA Ac BA 71 -0 -[address] ti PE 40 2- 9 00 SI ve NT 33 20 20 49 DE IN 20 17 17 62 2 16 PH 80 AR 0 MA MG CY TA OF BL CY ET NT HI AN A IN C LE 00 11 25 29 30 00 EA Ac VO 37 -0 -[address] ti TH 81 2- 9 00 SI ve YR 80 20 20 49 DE OX 37 17 17 61 IN 7 90 PH E AR 50 MA CY MC G OF TA CY BL NT ET HI AN A IN C IB 53 09 30 00 EA Ac UP 74 -0 -[address] ti RO 60 00 SI ve FE 46 20 20 49 DE N 50 17 17 61 60 5 89 PH 0 AR MG MA CY TA BL OF ET CY NT HI AN A IN C FL 50 09 12 16 30 00 EA Ac UO 11 -0 -[address] ti XE 10 00 SI ve TI 64 20 20 49 DE NE 80 17 17 61 3 88 PH HC AR L MA 20 CY MG OF CY CA NT PS HI UL AN E A IN C RO 43 09 12 16 30 00 EA Ac PI 54 -0 -[address] ti NI 70 2- 9 00 SI ve RO 27 20 20 49 DE LE 11 17 17 61 0 87 PH HC AR L MA 2 CY MG OF TA CY BL NT ET HI AN A IN C AR 55 09 30 30 00 EA Ac AV 11 -0 -[address] ti 10 00 SI ve TA 23 20 20 49 DE TI 10 17 17 61 N 5 86 PH SO AR DI MA UM CY 40 OF CY MG NT HI TA AN B A IN C 00 09 12 16 30 00 EA Ac PI 60 -0 [...] 50 2- 9- 00 00 SI ve AR 62 20 20 49 DE IL 01 [...] CY NT HI AN A IN C ON 57 08 09 10 4 00 WA Ac DA 23 -0 -0 .0 00 L- ti NS 70 8- 1- 00 07 MA ve ET 07 20 20 50 RT RO 71 17 17 30 N 0 42 PH OD AR T MA 4 CY MG #5 TA 91 BL ET DI 00 08 09 12 4 00 WA Ac CY 52 -0 -0 .0 00 L- ti CL 71 8- 1- 00 07 MA ve OM 28 20 20 50 RT IN 20 17 17 30 E 1 45 PH 20 AR MA MG CY TA #5 BL 91 ET CE 65 07 08 40 10 [...] ST ti TH 81 1- 5- 00 SI ve YR 80 20 20 [...] NT ET HI AN A IN C AR 55 07 08 30 30 00 EA Ac AV 11 -3 -[address] ti 10 1- 5 00 SI ve TA 23 20 20 [...] 50 1- 5- 00 00 SI ve AR 62 20 20 49 DE IL 01 [...] ST ti RI 30 1- 5- 00 SI ve N 02 20 20 49 DE EC 62 17 17 61 2 85 PH 81 AR MA MG CY TA OF BL CY ET NT HI AN A IN C GA 16 07 08 30 00 EA Ac BA 71 -3 -[address] ti PE 40 1- 5- 00 00 SI ve NT 33 20 20 49 DE IN 20 17 17 62 2 16 PH 80 AR 0 MA MG CY TA OF BL CY ET NT HI AN A IN C HY 59 07 07 [address] 74 -0 -[address] ti OC 60 5- 8- 00 00 SI ve HL 38 20 20 48 DE OR 21 17 17 63 OT 0 24 PH HI AR AZ MA ID CY E 12 OF .5 CY NT MG HI AN CP A IN C LE 00 09 22 29 30 00 EA Ac VO 37 [...] 07 07 60 30 00 EA Ac AR 18 -0 -[address] ti [...] 50 5- 8- 00 00 SI ve AR 62 20 20 49 DE IL 01 [...] 50 0- 3- 00 00 SI ve AR 62 20 20 47 DE IL 01 [...] HI UL AN E A IN C AR 55 05 06 30 30 00 EA Ac AV 11 -3 -[address] ti 10 0- 3- 00 00 SI ve TA 23 20 20 48 DE TI 10 17 17 63 N 5 18 PH SO AR DI MA UM CY 40 OF CY MG NT HI TA AN B A IN C OM 62 05 06 30 30 00 EA Ac EP 17 -3 -[address] ti RA 50 0- 3- 00 00 SI ve ZO 13 20 20 48 DE LE 64 17 [address] AR MA 40 CY MG OF CY CA NT PS HI UL AN E A IN C BU 00 05 60 30 00 EA Ac AR 18 -3 -[address] ti [...] 04 04 60 30 00 EA Ac AR 18 -0 -[address] ti [...] CY NT HI AN A IN C AR 55 04 04 30 30 00 EA [...] ST ti NO 70 5- 8- 00 00 SI ve AR 35 20 20 47 DE IL 41 17 17 54 1 46 PH 20 AR MA MG CY TA OF BL CY ET NT HI AN A IN C ES 00 04 04 30 30 00 EA Ac TR 37 -0 -[address] ti AD 81 5- 8- 00 00 SI ve IO 45 20 20 48 DE L 40 17 17 25 1 5 42 PH MG AR MA TA CY BL ET OF CY NT HI AN A IN C AR 00 03 04 10 5 00 EA [...] 5 84 PH CE AR TA MA WI CY NO PH OF EN CY NT 5- HI 32 AN 5 A IN C CA 00 03 03 60 30 00 EA Ac RV 09 -0 -[address] ti ED 37 7- 1- 00 SI ve IL 29 20 20 47 DE OL 50 17 17 54 1 47 PH 12 AR .5 MA CY MG OF TA CY BL NT ET HI AN A IN C LI 00 05 19 30 30 00 EA Ac SI 18 -0 -[address] ti NO 50 7- - 00 SI ve AR 62 20 20 47 DE IL 01 17 17 54 0 46 PH 20 AR MA MG CY TA OF BL CY ET NT HI AN A IN C LE 00 03 30 30 00 EA Ac VO 37 -0 -[address] ti TH 81 7- 00 SI ve YR 80 20 20 46 DE OX 37 17 17 48 IN 7 90 PH E AR 50 MA CY MC G OF TA CY BL NT ET HI AN A IN C RO 43 03 30 30 00 EA Ac PI 54 -0 -[address] ti NI 70 7- - 00 SI ve RO 27 20 20 46 DE LE 11 17 17 48 0 83 PH HC AR L MA 2 CY MG OF TA CY BL NT ET HI AN A IN C FL 00 03 30 30 00 EA Ac UO 78 -0 -[address] ti XE 12 7- 00 SI ve TI 82 20 20 46 DE NE 21 17 17 48 0 81 PH HC AR L MA 20 CY MG OF CY CA NT PS HI UL AN E A IN C AR 55 03 03 30 30 00 EA Ac AV 11 -0 -[address] ti 10 7- 00 SI ve TA 23 20 20 46 DE TI 10 17 17 48 N 5 80 PH SO AR DI MA UM CY 40 OF CY MG NT HI TA AN B A IN C 00 03 30 30 00 EA Ac PI [...] AN E A IN C GA 16 03 03 90 30 00 EA Ac BA [...] HI AN A IN C BU 00 03 03 60 30 00 EA Ac AR 18 -0 -[address] ti OP 50 7- 1- 00 00 SI ve IO 41 20 20 47 DE N 06 17 17 87 HC 0 75 PH L AR SR MA CY 10 0 OF MG CY NT TA HI BL AN ET A IN C ES 00 02 03 30 30 00 [...] 02 03 60 30 00 EA Ac AR 18 -0 -[address] ti OP 50 9- 0- 00 00 SI ve IO 41 20 20 47 DE N 06 17 17 55 HC 0 75 PH L AR SR MA CY 10 0 OF MG CY NT TA HI BL AN ET A IN C LE 00 02 03 30 30 00 EA Ac VO [...] HI AN A IN C GA 16 02 03 90 30 00 EA Ac BA 71 -0 -[address] ti PE 40 8- 3- 00 00 SI ve NT 33 20 20 47 DE IN 20 17 17 54 2 52 PH 80 AR 0 MA MG CY TA OF BL CY ET NT HI AN A IN C LE 02 30 30 00 EA Ac VO 37 -2 -[address] ti TH 81 4- 7- 00 00 SI ve YR 80 20 20 46 DE OX 01 17 17 51 IN 0 76 PH E AR 25 MA CY MC G OF TA CY BL NT ET HI AN A IN C CA 60 30 00 EA Ac RV 09 -2 -[address] ti ED 37 4- 7- 00 00 SI ve IL 29 20 20 46 DE OL 50 17 17 48 1 78 PH 12 AR .5 MA CY MG OF TA CY BL NT ET HI AN A IN C LI 30 30 00 EA Ac SI 18 -2 -[address] ti NO 50 4- 7- 00 SI ve AR 62 20 20 46 DE IL 01 17 17 48 0 77 PH 20 AR MA MG CY TA OF BL CY ET NT HI AN A IN C FL 02 30 30 00 EA Ac UO 78 -2 -[address] ti XE 12 4- 7- 00 00 SI ve TI 82 20 20 46 DE NE 21 17 17 48 0 81 PH HC AR L MA 20 CY MG OF CY CA NT PS HI UL AN E A IN C AR 55 01 02 30 30 00 EA Ac AV 11 -2 -[address] ti 10 4- 7- 00 SI ve TA 23 20 20 46 DE TI 10 17 17 48 N 5 80 PH SO AR DI MA UM CY 40 OF CY MG NT HI TA AN B A IN C 00 02 30 30 00 EA Ac PI 60 -2 -[address] ti RI 30 4- 7- 00 00 SI ve N 02 20 20 46 DE EC 62 17 17 48 2 79 PH 81 AR MA MG CY TA OF BL CY ET NT HI AN A IN C HY 59 01 02 30 [address] 74 -2 -[address] ti OC 60 4- 7- 00 00 SI ve HL 38 20 20 46 DE OR 21 17 17 48 OT 0 76 PH HI AR AZ MA ID CY E 12 OF .5 CY NT MG HI AN CP A IN C OM 62 03 20 [...] NT ET HI AN A IN C LE 00 00 EA Ac VO 37 -3 -0 [...] ET NT HI AN A IN C RO 43 [...] HI UL AN E A IN C AR 55 12 04 17 30 00 EA Ac AV 11 -1 -[address] ti 10 0- 3- 00 00 SI ve TA 23 20 20 46 DE TI 10 16 17 27 N 5 18 PH SO AR DI MA UM CY 40 OF CY MG NT HI TA AN B A IN C 00 12 04 17 30 00 EA Ac PI 60 -1 [...] 50 0- 3- 00 00 SI ve AR 62 20 20 46 DE IL 01 [...] H BL CY M ET #4 93 CL 00 03 05 01 30 30 WA 44 BR Ac ON 09 -1 -0 .0 L- 72 OD ti AZ 30 1- 7- 00 MA 46 SK ve EP 83 20 20 RT 9 Y AM 20 09 09 KE 1 PH NN 0. AR ET 5 MA H MG CY M TA #4 BL 93 ET TO 50 02 05 02 30 30 WA 69 BR Ac PA 45 -2 -0 .0 L- 79 OD ti MA 80 4- 7- 00 MA 61 SK ve X 64 20 20 RT 8 Y 50 06 09 09 KE 5 PH NN MG AR ET MA H TA CY M BL ET #4 93 GA 60 04 04 00 60 30 WA 69 BR Ac BA 50 -1 -2 .0 L- 85 OD ti PE 50 0- 3- 00 MA 75 SK ve NT 11 20 20 RT 8 Y IN 30 09 09 KE 1 PH NN 30 AR ET 0 MA H MG CY M CA #4 PS 93 UL E 00 04 04 00 30 10 WA 69 BR Ac 37 -0 -0 .0 L- 84 OD ti 80 3- 9- 00 MA 91 SK ve 75 20 20 RT 1 Y 19 09 09 KE 3 PH NN AR ET MA H CY M #4 93 00 04 04 00 45 15 WA 44 BR Ac 40 -0 -0 .0 L- 73 OD ti 60 3- 9- 00 MA 02 SK ve 35 20 20 RT 2 Y 80 09 09 KE 1 PH NN AR ET MA H CY M #4 93 TO 50 02 04 01 30 30 WA 69 BR Ac PA 45 -2 -0 .0 L- 79 OD ti MA 80 4- 9- 00 MA 61 SK ve X 64 20 20 RT 8 Y 50 06 09 09 KE 5 PH NN MG AR ET MA H TA CY M BL ET #4 93 CL 00 03 03 00 [...] MC G #4 TA 93 BL ET CL 00 02 03 00 30 30 WA 44 BR Ac ON 09 -2 -1 .0 L- 72 OD ti AZ 30 4- 2- 00 MA 14 SK ve EP 83 20 20 RT 0 Y AM 20 09 09 KE 1 PH NN 0. AR ET 5 MA H MG CY M TA #4 BL 93 ET 00 02 03 00 30 30 [...] 4- 2- 00 MA 61 SK ve AR 34 20 20 RT 7 Y AM [...] MC G #4 TA 93 BL ET AZ 00 01 01 00 6. 5 WA 69 WI Ac IT 78 -0 -1 00 L- 74 LS ti HR 11 9- 5- 0 MA 07 ON ve OM 49 20 20 RT 7 YC 66 09 09 RO IN 8 PH BE AR RT 25 MA C 0 CY MG #4 TA 93 BL ET AV 00 01 01 00 7. 7 WA 69 BR Ac EL 08 -0 -1 00 L- 74 OD ti OX 51 9- 5- 0 MA 07 SK ve 73 20 20 RT 8 Y 40 30 09 09 KE 0 1 PH NN MG AR ET MA H TA CY M BL ET #4 93 [place] 00 12 01 00 15 10 [...] 3- 1- 00 MA 03 SK ve AR 34 20 20 RT 0 Y AM 43 08 08 KE 0 PH NN HB AR ET R MA H 40 CY M MG #4 93 TA BL ET ME 00 08 08 00 60 30 WA 69 JE Ac TO 09 -1 -2 .0 L- 56 NN ti CL 32 4- 8- 00 MA 67 IN ve OP 20 20 20 RT 7 GS RA 30 08 08 -C WI 5 PH ON DE AR KL MA [...] ET M H #3 M 91 4 00 08 08 00 30 30 WA 69 JE Ac 30 -1 -2 .0 L- 56 NN ti 03 4- 8- 00 MA 67 IN ve 04 20 20 RT 6 GS 61 08 08 -C 3 PH ON AR KL MA IN CY KA #4 RE 93 N OX 00 07 08 00 30 10 WA 22 BR Ac YC 59 -2 -0 .0 L- 15 OD ti OD 10 3- 1- 00 MA 39 SK ve ON 93 20 20 RT 5 Y -A 30 08 08 KE CE 1 PH NN TA AR ET WI MA H NO CY M PH EN #4 93 7. 5- 32 5 LE 00 07 08 00 30 30 WA 69 BR Ac VO 37 -2 -0 .0 L- 54 OD ti TH 81 3- 1- 00 MA 58 SK ve YR 80 20 20 RT 0 Y OX 50 08 08 KE IN 1 PH NN E AR ET 75 MA H CY M MC G #4 TA 93 BL ET LE 00 07 07 00 30 30 WA 69 BR Ac VO 37 -0 -1 .0 L- 52 OD ti TH 81 9- 7- 00 MA 99 SK ve YR 80 20 20 RT 0 Y OX 30 08 08 KE IN 1 PH NN E AR ET 50 MA H CY M MC G #4 TA 93 BL ET HY 00 07 07 00 30 30 [...] M #4 93 00 07 07 00 30 30 WA 69 BR Ac 37 -0 -1 .0 L- 52 OD ti 81 3- 7- 00 MA 53 SK ve 08 20 20 RT 0 Y 90 08 08 KE 1 PH NN AR ET MA H CY M #4 93 Procedures Procedure DOS Code Location Performer Comment COMPREHEN 47171 [facility] SCHULER SIVE [facility] METABOLIC INC INC PANEL CULTURE 78416 HARINI SCHULER BACTERIAL 7 [facility] INC [place] [address] HARINI HANKS JACQUELINE ABDOMINAL 7 [facility] [place] REAL INC HOLDINGS TIME W/IMAGE LIMITED URNLS DIP 05769 [facility] SCHULER 7 [facility] STICK/TAB INC INC [place] [address] HARINI SCHULER AMYLASE 7 [facility] INC INC CREATINE 29006 HARINI SCHULER KINASE MB 7 [facility] FRACTION INC INC ONLY FINAL G9638 YESI LANDEROS REPORTS 7 MEDICAL W/O DOC IMAGING 1/[place] [address] HARINI SCHULER TROPONIN 7 [facility] QUANTITAT INC INC MARYLOU BLOOD 99511 HARINI SCHULER COUNT 7 [facility] COMPLETE INC INC AUTO&AUTO DIFRNTL WBC FINAL G9551 YESI LANDEROS REPR ABD 7 MEDICAL IMAG STS IMAGING W/O ASS INCIDNT FND LES NTD: [place] [address] HARINI SCHULER ABDOMEN & 7 [facility] PELVIS INC INC W/CONTRAS T MATERIAL ECG 94366 [facility] ROUTINE 7 PHYSICIAN ECG S, PLLC W/LEAST 12 LDS I&R ONLY CREATINE 95501 HARINI SCHULER KINASE 7 [facility] [place] [address] HARINI SCHULER LIPASE 7 [facility] INC INC ECG 76812 HARINI SCHULER ROUTINE 7 [facility] ECG INC INC W/LEAST 12 LDS TRCG ONLY W/O I&[place] [address] HARINI SCHULER THYROID 7 [facility] STIMULATI INC INC NG HORMONE TSH RADEX 61772 HARINI SCHULER SPINE 7 [facility] LUMBOSACR INC INC AL MINIMUM 4 VIEWS THERAPEUT 19792 HARINI SCHULER IC 7 [facility] INJECTION INC [place] [address] HARINI SCHULER LIPASE 7 [facility] INC INC THER 26085 HARINI SCHULER PROPH/DX 7 [facility] NJX IV INC INC PUSH SINGLE/1S T SBST/[place] [address] HARINI SCHULER ABDOMEN & 7 [facility] PELVIS INC INC W/O CONTRAST MATERIAL FINAL G9638 [facility] DYS[facility] REPORTS 7 MEDICAL W/O DOC IMAGING 1/MORE ASS DOSE REDUCTION TECH FINAL G9551 [facility] ROSENDO REPR ABD 7 MEDICAL IMAG STS IMAGING W/O ASS INCIDNT FND LES NTD: BLOOD 18792 HARINI SCHULER COUNT 7 [facility] COMPLETE INC INC AUTO&[place] [address] HARINI SCHULER AMYLASE 7 [facility] INC INC URNLS DIP 87497 HARINI SCHULER 7 [facility] STICK/TAB INC INC LET REAGENT AUTO MICROSCOP Y COMPREHEN 28153 HARINI SCHULER SIVE 7 [facility] METABOLIC INC INC PANEL COMPREHEN 55736 HARINI SCHULER SIVE 6 [facility] [address] HARINI SCHULER THYROXINE 6 [facility] [place] [address] HARINI SCHULER THYROID 6 [facility] STIMULATI INC INC NG HORMONE TSH CONTINUOU E0601 SHAKA HERRERA S 6 HOME ILEANA POSITIVE MEDICAL AIRWAY EQUIPME PRESSURE DEVICE RADIOLOGI 26666 [facility] LANDER[facility] ALL C 6 MEDICAL EXAMINATI IMAGING ON CHEST ASS [facility] 63124 [facility] 6 MEDICINE YANNI DAY SERVICES MANAGEMEN O T > 30 MIN INITIAL 45284 [facility] 6 MEDICINE SHAW CARE/DAY SERVICES 70 O MINUTES CONTINUOU E0601 SHAKA MATT S 6 HOME HOME POSITIVE MEDICAL MEDICAL AIRWAY EQUIPME EQUIPME PRESSURE DEVICE COLONOSCO 96209 [facility] KAMERON TOD PY FLX DX 6 PHYSICIAN W/COLLJ S GROUP SPEC WHEN PFRMD ANES 43884 [facility] LOWER 6 ANESTH INTESTINE OF THE BLUE ENDOSCOPY DISTAL DUODENUM RADEX 55399 YESI LANDEROS ALL COLON 6 MEDICAL W/SPEC HI IMAGING DNS ASS BARIUM W/WO GLUCAGON NASL A7034 SHAKA PARTIDARELL INTRFCE 6 HOME HOME POS ARWAY MEDICAL MEDICAL PRSS EQUIPME EQUIPME DEVC W/WO HEAD STRAP HEADGEAR A7035 SHAKAMOISE MATT USED 6 HOME HOME W/POSITIV MEDICAL MEDICAL E AIRWAY EQUIPME EQUIPME PRESSURE DEVICE HUMDIFIR E0562 SHAKAMOISE MATT HEATED 6 HOME HOME USED MEDICAL MEDICAL W/POS EQUIPME EQUIPME ARWAY PRESSURE DEVICE CONTINUOU E0601 SHAKA MATT S 6 HOME HOME POSITIVE MEDICAL MEDICAL AIRWAY EQUIPME EQUIPME PRESSURE DEVICE FILTER A7038 SHAKA SHAKA DISPBL 6 HOME HOME USED MEDICAL MEDICAL W/POS EQUIPME EQUIPME ARWAY PRESSURE DEVICE FILTER A7039 SHAKA SHAKA NON 6 HOME HOME DISPBL MEDICAL MEDICAL USED EQUIPME EQUIPME W/POS ARWAY PRESS DEVICE TUBING A7037 SHAKA SHAKA USED WITH 6 HOME HOME POSITIVE MEDICAL MEDICAL AIRWAY EQUIPME EQUIPME PRESSURE DEVICE THYROID 84802 HARINI SCHULER HORM 6 [facility] UPTK/THYR INC INC [place] [address] HARINI SCHULER THYROXINE 6 [facility] [place] [place] [address] HARINI SCHULER THYROID 6 [facility] STIMULATI INC INC NG HORMONE TSH ECHO 32536 HARINI SCHULER TTHRC R-T 6 [facility] 2D INC INC W/WOM-MOD E COMPL SPEC&COLR D SLEEP STD 45014 HARINIHARIS SCHULER AIRFLOW 6 [facility] HRT INC INC RATE&O2 [place] [address] [place] LANDEROS ALL TRACT UPR 6 MEDICAL W/SM INT IMAGING W/MULT ASS SERIAL IMAGES PRESSURIZ 25264 HARINI SCHULER ED/NONPRE 6 [facility] SSURIZED INC INC INHALATIO N TREATMENT INJECTION J2405 HARINI SCHULER 6 [facility] ONDANSETR INC INC ON HCL PER 1 MG INJECTION J2710 HARINI SCHULER 6 [facility] NEOSTIGMI INC INC NE METHYLSUL FATE UP TO 0.5 MG UNCLASSIF J3490 HARINI SCHULER IED DRUGS 6 [facility] INC INC LAPS ABD 23565 HARINI SCHULER PRTM&OMEN 6 [facility] KATYA DX INC INC W/WO SPEC BR/WA SPX URNLS DIP 77202 HARINI SCHULER 6 [facility] STICK/TAB INC INC LET REAGENT AUTO MICROSCOP Y ANESTHESI 95861 [facility] 6 ANESTH SHE INTRAPERI OF THE TONEAL BLUE LOWER ABD W/LAPS NOS BLOOD 92653 HARINI SCHULER COUNT 6 [facility] COMPLETE INC INC AUTO&AUTO DIFRNTL WBC URNLS DIP 80970 HARINIHARIS SCHULER 6 [facility] STICK/TAB INC INC LET REAGENT AUTO MICROSCOP Y SMR PRIM 87009 [facility] HARPEL SRC WET 6 PHYSICIAN ISH Herrera GROUP NFCT AGT COLLECTIO 16591 HARINI SCHULER N VENOUS 6 [facility] [place] [address] HARINI SCHULER TRANSVAGI 6 [facility] NAL INC INC IADNA 35789 BIO BIO TRICHOMON 6 REFERNCE REFERNCE LABORATOR LABORATOR VAGINALIS IES IES AMPLIFIED PROBE TECH IADNA 23224 ELIO Fry NEISSERIA 6 JENNIFER RODRIGUEZ MD GONORRHOE AE DIRECT PROBE TQ IADNA 68927 BIO BIO NEISSERIA 6 REFERNCE REFERNCE LABORATOR LABORATOR GONORRHOE IES IES AE AMPLIFIED PROBE TQ IADNA NOS 87659 BIO BIO 6 REFERNCE REFERNCE AMPLIFIED LABORATOR LABORATOR PROBE TQ IES IES EACH ORGANISM BLOOD 40968 ELIO RODRIGUEZ OCCULT 6 JENNIFER ESQUIVEL ISH PEROXIDAS E ACTV QUAL FECES 1-3 SPEC URINLS 71398 ELIO RODRIGUEZ DIP 6 JENNIFER ESQUIVEL ISH STICK/TAB LET REAGNT NON-AUTO MICRSCPY IADNA 49791 BIO BIO CHLAMYDIA 6 REFERNCE REFERNCE LABORATOR LABORATOR TRACHOMAT IES IES IS AMPLIFIED PROBE TQ CULTURE 66401 ELIO RODRIGUEZ CHLAMYDIA 6 JENNIFER ESQUIVEL ISH ANY SOURCE CYTP C/V 28323 BIO BIO AUTO THIN 6 REFERNCE REFERNCE LYR LABORATOR LABORATOR [place]PJ [place] [address] HARINI SCHULER ABDOMEN & 6 [facility] PELVIS INC INC W/O CONTRAST MATERIAL THER 40194 HARINI SCHULER PROPH/DX 6 [facility] NJX IV INC INC PUSH SINGLE/1S T SBST/[place] [address] HARINI SCHULER LIPASE 6 [facility] INC INC UNCLASSIF J3490 HARINI SCHULER IED DRUGS 6 [facility] INC INC THERAPEUT 21504 HARINI SCHULER IC 6 [facility] INJECTION INC INC IV PUSH EACH NEW DRUG INJECTION J2405 HARINI SCHULER 6 [facility] ONDANSETR INC INC ON HCL PER 1 [place] [address] HARINI SCHULER AMYLASE 6 [facility] INC INC URNLS DIP 85849 HARINI SCHULER 6 [facility] STICK/TAB INC INC LET REAGENT AUTO MICROSCOP Y COMPREHEN 81865 HARINI SCHULER SIVE 6 [facility] METABOLIC INC INC PANEL BLOOD 54441 HARINI SCHULER COUNT 6 [facility] COMPLETE INC INC AUTO&AUTO DIFRNTL WBC CATHETER C1887 HARINI SCHULER GUIDING 6 [facility] INC INC CATHETER C1725 HARINI SCHULER TRANSLUMI 6 [facility] NAL INC INC ANGIOPLAS TY NON-LASER GUIDE C1769 HARINI SCHULER WIRE 6 [facility] INC INC LOCM Q9967 HARINI SCHULER 300-399 6 [facility] MG/ML INC INC IODINE CONCENTRA TION PER ML CATH PLMT 05514 CARDIOVAS DIRK L HRT & 6 CULAR MAT ARTS CONSULTAN W/NJX & TS O ANGIO IMG S&I INJECTION J1644 HARINI SCHULER HEPARIN 6 [facility] SODIUM INC INC PER 1000 UNITS ECG 85897 HARINI SCHULER ROUTINE 6 [facility] ECG INC INC W/LEAST 12 LDS TRCG ONLY W/O I&R PROTHROMB 85247 HARINI SCHULER IN TIME 6 [facility] INC INC COMPREHEN 35281 HARINI SCHULER SIVE 6 [facility] METABOLIC INC INC PANEL COLLECTIO 88560 HARINI SCHULER N VENOUS 6 [facility] BLOOD INC INC VENIPUNCT URE BLOOD 96737 HARINI SCHULER COUNT 6 [facility] COMPLETE INC INC AUTO&AUTO DIFRNTL WBC GONADOTRO 63596 HARINI SCHULER PIN 6 [facility] CHORIONIC INC INC QUALITATI VE BLOOD 30300 HARINI SCHULER COUNT 6 [facility] COMPLETE INC INC AUTO&AUTO DIFRNTL WBC COMPREHEN 21801 HARINI SCHULER SIVE 6 [facility] METABOLIC INC INC PANEL URNLS DIP 16629 HARINI SCHULER 6 [facility] STICK/TAB INC INC [place] [address] HARINI SCHULER AMYLASE 6 [facility] [place] [address] HARINI SCHULER LIPASE 6 [facility] INC INC THER 62904 HARINI SCHULER PROPH/DX 6 [facility] NJX EA INC INC SEQL IV P[place] SBST/[place] [address] HARINI HARINI INFUSION 6 [facility] THER INC INC PROPH ADDL SEQUENTIA L TO 1 HR INJECTION J2405 HARINI SCHULER 6 [facility] ONDANSETR INC INC ON HCL PER 1 [place] [address] HARINI SCHULER INFUSION 6 [facility] THERAPY/P INC INC ROPHYLAXI S /DX 1ST TO 1 HR ECG 58094 HARINI HARINI ROUTINE 6 [facility] ECG INC INC W/LEAST 12 LDS TRCG ONLY W/O I&[place] [address] [facility] ABDOMEN & 6 MEDICAL MEDICAL PELVIS IMAGING IMAGING W/O ASS ASS CONTRAST MATERIAL CV STRS 51591 [facility] FALLU TST 6 PHYSICIAN EDIN XERS&/OR S GROUP RX CONT ECG W/O I&R CV STRS 17917 HARINI SCHULER TST 6 [facility] XERS&/OR INC INC RX CONT ECG TRCG ONLY INJECTION J2785 HARINI SCHULER 6 [facility] REGADENOS INC INC ON 0.1 MG ECHO 04571 HARINI HARINI TTHRC R-T 6 [facility] 2D INC INC W/WOM-MOD E COMPL SPEC&COLR D TECHNETIU A9500 HARINI SCHULER M TC-99M 6 [facility] SESTAMIBI INC INC DX PER STUDY DOSE MYOCARDIA 73337 HARINI SCHULER L SPECT 6 [facility] [place] [address] [place] ROSENDO TRANSVAGI 6 MEDICAL GARETH NAL IMAGING ASS RADEX ABD 66887 HARINI SCHULER COMPL 6 [facility] AQT ABD INC INC W/S/E/D VIEWS 1 VIEW CH ECG 26053 HARINI SCHULER ROUTINE 5 [facility] ECG INC INC W/LEAST 12 LDS TRCG ONLY W/O I&R US BREAST 35263 [place] LANDEROS ALL UNI REAL 5 MEDICAL TIME IMAGING WITH ASS IMAGE LIMITED US BREAST 51242 HARINI SCHULER UNI REAL 5 [facility] TIME INC INC WITH IMAGE COMPLETE BLOOD 32864 HARINI SCHULER COUNT 5 [facility] COMPLETE INC INC AUTO&AUTO DIFRNTL WBC COMPREHEN 00084 HARINI SCHULER SIVE 5 [facility] [place] [address] HARINI SCHULER AMYLASE 5 [facility] INC INC COLLECTIO 33561 HARINI SCHULER N VENOUS 5 [facility] [place] [address] HARINI SCHULER LIPASE 5 [facility] INC INC ECG 08649 HARINI SCHULER ROUTINE 5 [facility] ECG INC INC W/LEAST 12 LDS TRCG ONLY W/O I&[place] [address] [place] LANDEROS ALL HEAD/BRAI 5 MEDICAL N W/[place] [address] [facility], PICKLESIM SURG 5 [facility] GROSS&KARLA ROSCOPIC EXAM BIOPSY 60144 HARINI SCHULER BREAST 5 [facility] OPEN INC INC INCISIONA L ECG 17866 HARINI SCHULER ROUTINE 5 [facility] ECG INC INC W/LEAST 12 LDS TRCG ONLY W/O I&R ANES 26545 [facility] LEDESMA BENJAMIN INTEG 5 ANESTH MUSC & OF THE NRV HEAD BLUE NECK&[place] [address] HARINI SCHULER INFUSION 5 [facility] THERAPY INC INC PROPHYLAX IS/DX EA HOUR PRESSURIZ 86532 HARINI SCHULER ED/NONPRE 5 [facility] SSURIZED [place] [address] HARINI SCHULER INFUSION 5 [facility] THERAPY/P INC INC ROPHYLAXI S /DX 1ST TO 1 HR ECG 86955 HARINI SPANN ROUTINE 5 [facility] W/LEAST P 12 LDS I&R ONLY THERAPEUT 14253 HARINI SCHULER IC 5 [facility] INJECTION INC INC IV PUSH EACH NEW DRUG INJECTION J0131 HARINI SCHULER 5 [facility] ACETAMINO INC INC PHEN 10 MG CYTP FLU 87602 P&[facility] LABSMELVINA/BR 5 [facility] ER JR GIULIA USHINGS XCPT C/V SMRS INTERPJ US BREAST 27756 [facility] REAL 5 MEDICAL GARETH TIME IMAGING WITH ASS IMAGE LIMITED US BREAST 77630 HARINI SCHULER UNI REAL 5 [facility] [place] [address] [facility] ABDOMEN & 5 RADIOLOGY LD IV ALL PELVIS W/O CONTRAST MATERIAL RADIOLOGI 27000 [facility] C EXAM 5 DERIC OLGA LIDIA CHEST 2 EMERGENCY VIEWS PHYS FRONTAL&L ATERAL ECG 48690 [facility] CELLAROSI ROUTINE 5 DERIC - YORBA ECG EMERGENCY PAT W/LEAST PHYS 12 LDS I&R ONLY FIBRIN 43002 [facility] CURRAN DGRADJ [address] [place] [address] D-DIMER QUANTITAT MARYLOU ECG 31162 [facility] [place] ROUTINE [address] [place] [address] W/LEAST 12 LDS TRCG ONLY W/O I&R BLOOD 65727 [facility] COUNT [address] [place] [address] AUTO&AUTO DIFRNTL WBC NATRIURET 37730 [facility] [place] IC [address] [place] [address] [place] [address] [facility] TROPONIN [address] [place] [address] MARYLOU COMPREHEN 85214 [facility] SIVE [address] [place] [address] PANEL COLLECTIO 96117 [facility] N VENOUS [address] [place] [address] VENIPUNCT URE CYTP FLU 92795 P&C LABSARTEMIOGS/BR 5 [facility] MARGARET USHINGS XCPT C/V SMRS INTERPJ DIAGNOSTI G0204 [place] ROSENDO C 5 MEDICAL GARETH MAMMOGRAP IMAGING HY INCL ASS CAD WHEN PERF; BILAT LEVEL III 35494 [facility] LABSARTEMIO SURG 5 [facility] MARGARET PATHOLOGY GROSS&KARLA ROSCOPIC EXAM EXCISION 69710 HARINI SCHULER HIDRADENI 5 [facility] TIS INC INC AXILLARY COMPLEX REPAIR ANES 20251 [facility] INTEG 5 ANESTH MAR EXTREMITI OF THE ES ANT BLUE TRUNK & PERINEUM NOS ECG 40028 HARINIHARIS SCHULER ROUTINE 5 [facility] ECG INC INC W/LEAST 12 LDS TRCG ONLY W/O I&R ECG 23176 CARDIOVAS DIRK ROUTINE 5 CULAR MAT ECG CONSULTAN W/LEAST TS O 12 LDS I&R ONLY LOCM Q9967 HARINI KLINEON 300-399 5 [facility] MG/ML INC INC IODINE CONCENTRA TION PER ML RADIOLOGI 89679 [facility] ROSENDO C EXAM 5 MEDICAL GARETH CHEST 2 IMAGING VIEWS ASS FRONTAL&[place] [address] [place] ROSENDO ANGIOGRAP 5 MEDICAL GARETH HY HEAD IMAGING W/CONTRAS ASS T/NONCONT RAST BLOOD 97297 HARINI SCHULER COUNT 5 [facility] COMPLETE INC INC AUTO&AUTO DIFRNTL WBC NATRIURET 48932 HARINI SCHULER IC 5 [facility] PEPTIDE INC INC COLLECTIO 61262 HARINI SCHULER N VENOUS 5 [facility] BLOOD INC INC VENIPUNCT URE COMPREHEN 43528 HARINI SCHULER SIVE 5 [facility] [place] [address] HARINI SCHULER THYROXINE 5 [facility] TOTAL INC INC LIPID 05720 HARINI SCHULER PANEL 5 [facility] [place] [address] HARINI SCHULER THYROID 5 [facility] STIMULATI INC INC NG HORMONE TSH ECHO 39946 HARINI SCHULER TTHRC R-T 5 [facility] 2D INC INC W/WOM-MOD E COMPL SPEC&COLR D BILIRUBIN 63303 HARINI SCHULER DIRECT 5 [facility] INC INC CV STRS 68102 [facility] DIRK TST 5 CULAR MAT XERS&/OR CONSULTAN RX CONT TS O ECG I&R ONLY CV STRS 39782 HARINI SCHULER TST 5 [facility] XERS&/OR INC INC RX CONT ECG TRCG ONLY CV STRS 77951 [facility] TST 5 PHYSICIAN EDIN XERS&/OR S GROUP RX CONT ECG W/O I&R GAS 89160 HARINI SCHULER DILUT/WAS 5 [facility] HOUT LUNG INC INC VOL W/[place] DISTRIB VENT&[place] [address] HARINI SCHULER DIFFUSING 5 [facility] CAPACITY INC INC BRNCDILAT 55706 HARINI BRADSHAW JR RSPSE 5 [facility] PRE&POST- P BRNCDILAT ADMN ECG 23660 CARDIOV[facility] DIRK ROUTINE 5 CULAR MAT ECG CONSULTAN W/LEAST TS O 12 LDS I&R ONLY ECG 54026 HARINI SCHULER ROUTINE 5 [facility] ECG INC INC W/LEAST 12 LDS TRCG ONLY W/O I&R THERAPEUT 05985 [facility] IC 4 PHYSICIAN KARLA PROPHYLAC S GROUP TIC/DX INJECTION SUBQ/IM INJECTION J1040 [facility] 4 PHYSICIAN KARLA METHYLPRE S GROUP DNISOLONE ACETATE 80 MG OPHTH 40006 [facility] 4 GRE GRE XM&EVAL COMPRE NEW PT 1/> VST DOP 88082 [facility] ECHOCARD 4 NE [facility] COLOR MEDICAL FLOW G VELOCITY MAPPING ECHO 60362 [facility] TRANSESOP 4 NE [facility] HAG R-T MEDICAL 2D W/PRB G IMG ACQUISJ I&[place] [address] [facility] 2 VIEWS 4 MEDICAL SHREYA FRNT & IMAGING LAT ASS APICAL LORDOTIC PX DOPPLER 33647 [facility] ECHOCARD 4 NE [facility] EDIN PULSE MEDICAL WAVE G W/SPECTRA L DISPLAY RADIOLOGI 80800 [facility] C EXAM 4 MEDICAL SHREYA CHEST 2 IMAGING VIEWS ASS FRONTAL&L ATERAL ECHO 49009 [facility] TTHRC R-T 4 [facility] 2D INC INC W/WOM-MOD E COMPL SPEC&COLR D CREATINE 59600 [facility] KINASE 4 [facility] TOTAL INC INC BLOOD 85226 [facility] COUNT 4 [facility] COMPLETE INC INC AUTO&[place] [address] [facility] TROPONIN 4 [facility] QUANTITAT INC INC MARYLOU CREATINE 18869 [facility] SCH[facility] KINASE MB 4 [facility] FRACTION INC INC ONLY COMPREHEN 97400 [facility] SIVE 4 [facility] METABOLIC INC INC PANEL CUL BACT 86622 [facility] SCH[facility] XCPT 4 [facility] URINE INC INC BLOOD/STO OL AEROBIC ISOL CULTURE 51584 [facility] SCHULER FNGI 4 [facility] MOLD/YEAS INC INC T PRSMPTV OTH XCPT BLOOD INCISION 05344 [facility] REMOVAL 4 [facility] BODY SUBQ TISS SIMPLE BLOOD 86862 [facility] COUNT 4 [facility] AUTO&AUTO DIFRNTL WBC CYTP C/V 07975 P[facility]LES[facility] PICKLESIM AUTO THIN 4 ER JR GIULIA ER JR GIULIA [place] [address] KATTY ALANIZ ABDOMEN & 4 OLGA LIDIA OLGA LIDIA PELVIS W/O CONTRAST MATERIAL RADIOLOGI 51837 KATTY ALANIZ C EXAM 4 OLGA LIDIA OLGA LIDIA CHEST 2 VIEWS FRONTAL&L ATERAL RADIOLOGI 71669 SWINEY SWINEY C 4 PAT PAT EXAMINATI ON CHEST SINGLE VIEW FRONTAL ECG 82272 SWINEY SWINEY ROUTINE 4 PAT PAT ECG W/LEAST 12 LDS I&R ONLY RADIOLOGI 69030 SAVANNA SAVANNA C 4 RHO RHO EXAMINAT[place] [address] SAVANNA SAVANNA ABDOMEN & 4 RHO RHO PELVIS W/CONTRAS T MATERIAL OSTEOPATH 30098 PRIMARY YEMI, IC 9 HEALTH MARY M MANIPULAT ASSOCIATE MARYLOU TX S PSC 1-2 BODY REGIONS ECG 94907 CARDIOLOG JOVEL, ROUTINE 9 Y ALAN A ECG ASSOCIATE W/LEAST S OF 12 LDS [place] I&R ONLY RADIOLOGI 03407 [facility] Konstantin WAITE EXAM 9 RADIOLOGY T CHEST 2 VIEWS FRONTAL&[place] [address] [facility] [place] EVIN, HEAD/BRAI 9 RADIOLOGY SIMONA D N W/O CONTRAST MATERIAL ECG 71082 PRIMARY YEMI, ROUTINE 9 [facility] [place] M ECG ASSOCIATE W/LEAST S PSC 12 LDS W/I&R ECG 94276 CARDIOLOG JOVEL, ROUTINE 9 Y ALAN A ECG ASSOCIATE W/LEAST S OF 12 LDS [place] I&R ONLY ECG 72804 [facility], ROUTINE 9 DERIC ASIF C ECG EMERGENCY W/LEAST PHYS INC 12 LDS I&R ONLY FIBRIN 41750 [facility] DGRADJ 9 [facility] D-DIMER QU[place] [address] [facility] INFUSION 9 [facility] INITIAL 31 MIN-[place] [address] [facility] INFUSION 9 [facility] EACH ADDITIONA L HOUR CREATINE 65770 [facility] 9 [facility] ECG 73042 [facility] ROUTINE 9 [facility] W/LEAST 12 LDS TRCG ONLY W/O I&R RADIOLOGI 47025 [facility] Wander MARROQUIN 9 RADIOLOGY JEANA EXAMINATI ON CHEST SINGLE VIEW FRONTAL GROUND A0425 [facility] 9 MAGDY CURRAN PER [facility] [place] [address] [facility]AN TROPONIN 9 [facility] MARYLOU BLOOD 76967 [facility] CUR[facility]AN COUNT [address] [place] [address] AUTO&AUTO DIFRNTL WBC COLLECTIO 99198 MAGDY CURRAN N VENOUS 9 [facility] 77708 [facility] METABOLIC 9 [facility] CALCIUM TOTAL AMB A0427 [facility] SERVICE 9 [facility] EM[facility] EMS TRANSP[place]EL 1 [place] [address] [facility] THYROID 9 [facility] NG HORMONE [place] [address] [place] SAVANNA, ABDOMEN 8 RADIOLOGY FORREST G W/CONTRAS T MATERIAL CT PELVIS 65387 [facility] [place] SAVANNA, 8 RADIOLOGY FORREST G W/CONTRAS T MATERIAL ANES 19026 [place] DEPA, UPPER GI 8 ANESTHESI MARTINEZ ENDOSCOPY A GROUP PROXIMAL PSC TO DUODENUM ESOPHAGOG 43473 FU- TANK- ASTRODUOD 8 ZACHARY, ZACHARY, ENOSCOPY ROSLYN MCGOWAN TRANSORAL DIAGNOSTI C HEPATBL 49553 [facility] DUX SYS 8 [facility] [place] [address] [place] ZEINAB, TRACT 8 RADIOLOGY JEREMY Purcell UPPER W/WO DELAYED IMAGES W/O KUB RADEX 95182 [facility] UPPER GI 8 [facility]OSP[facility] GLUCAGON/ DELAY IMGES W/O KUB SEDIMENTA 81896 [facility] TION RATE 8 [facility] NON-AUTOM ATED [address]EMOGLOBI [address] [facility] MIQUEL A1C BLOOD 36180 [facility] COUNT 8 [facility] AUTO&AUTO DIFRNTL WBC COMPUTER- 43764 [facility] AIDED [address] [place] [address] HOSPITAL SCREENING MAMMOGRAP HY SCREENING [address] MAMMOGRAP [facility] HOSPITAL HY BILATERAL BASIC 32414 [facility] METABOLIC [address] [place] [address] HOSPITAL CALCIUM TOTAL COLLECTIO 61126 [facility] VENOUS 8 [facility] VENIPUNCT URE LIPID 15699 [facility] PANEL [address] [place] [address] [place] [address] [facility] ABDOMINAL 8 [facility] TIME W/[place] [address] [facility] THYROID 8 [facility] TSH HEPATIC 89101 [place] MAGDY FUNCTION 8 [facility] DOPPLER 88296 CARDIOLOG JOVEL, ECHOCARD 8 Y ALAN A PULSE ASSOCIATE WAVE S OF W/SPECTRA [place] L DISPLAY DOP 80244 CARDIOLOG JOVEL, ECHOCARD 8 Y ALAN A COLOR ASSOCIATE FLOW S OF VELOCITY [place] MAPPING ECHO 03412 CARDIOLOG JOVEL, TRANSTHOR 8 Y ALAN A AC R-T 2D ASSOCIATE W/WO S OF M-MODE [place] REC COMP Encounters Encounter Start End Date Code Location Performer Type Date OFFICE 28201 [facility] RIGO OUTJULIA 7 7 PHYSICIAN T VISIT S GROUP 15 MINUTES EMERGENCY 51620 [facility] 7 7 [facility] T VISIT HIGH/URGE NT SEVERITY EMERGENCY 76577 SELENA [facility] DEPT 7 7 PHYSICIAN VISIT S, [facility] HIGH SEVERITY& THREAT FUN HOSPITAL HARINI - 7 7 [facility] OUTPATIEN [facility] HARINI - 7 7 [facility] OUTPATIEN [facility] OFFICE 56144 [facility] JENNIFER OUTJULIA 7 7 PHYSICIAN T VISIT S GROUP 25 MINUTES EMERGENCY 49858 [facility] 7 7 [facility] T VISIT LOW/MODER SEVERITY EMERGENCY 97645 SELENA FORD 7 7 PHYSICIAN JR DEPARTMEN S, [facility] T VISIT HIGH/URGE NT SEVERITY HOSPITAL HAR[facility]I - 7 7 [facility] OUTPATIEN [facility] HARINI Plasencia 7 [facility] OUTPATIEN [facility] EMERGENCY 18518 SELENA [facility] DEPT 7 7 PHYSICIAN VISIT S, PLLC HIGH SEVERITY& THREAT FUNCJ EMERGENCY 31677 [facility] 7 7 [facility] DEPARTMEN INC T VISIT HIGH/URGE NT SEVERITY HOSPITAL [facility] - 6 6 [facility] OUTPATIEN INC T EMERGENCY 64278 HAR[facility] 6 6 [facility] DEPARTMEN [facility] T VISIT LIMITED/M INOR PROB EMERGENCY 14061 SELENA LIZ 6 6 PHYSICIAN DEPARTMEN S, PLLC T VISIT LOW/MODER SEVERITY OFFICE 46960 [facility] HARPEL OUTPATIEN 6 6 PHYSICIAN ISH T VISIT S GROUP 15 MINUTES HOSPITAL HAR[facility]I - 6 6 [facility] OUTPATI[facility] INC T EMERGENCY 77878 [facility] SWINEY 6 6 DERIC PAT DEPARTMEN EMERGENCY T VISIT PHYS MODERATE SEVERITY EMERGENCY 95220 SELENA MULLINS 6 6 PHYSICIAN U SH[facility] VISIT MODERATE SEVERITY EMERGENCY 17553 [facility] SWINEY DEPT 6 6 DERIC PAT VISIT EMERGENCY HIGH PHYSI SEVERITY& THREAT [facility] BOJOSÉ MIGUELON - 6 6 [facility] OFFICE 27207 [facility] KAMERON TOD OUTPATIEN 6 6 PHYSICIAN T VISIT S GROUP 10 MINUTES OFFICE 61664 [facility] HARPEL OUTPATIEN 6 6 PHYSICIAN ISH T VISIT S GROUP 15 MINUTES OFFICE 44499 [facility] KAMERON TOD OUTPATIEN 6 6 PHYSICIAN T VISIT S GROUP 10 MINUTES HOSPITAL HARINI - 6 6 [facility] OUTPATIEN INC T OFFICE 69161 [facility] KAMERON TOD OUTPATIEN 6 6 PHYSICIAN T VISIT S GROUP 10 MINUTES OFFICE 59889 ELIO RODRIGUEZ OUTPATIEN 6 6 JENNIFER ESQUIVEL ISH T VISIT 15 MINUTES HOSPITAL HAR[facility]I - 6 6 [facility] OUTPATIEN INC T [facility]OSPITAL [facility] - 6 6 [facility] OUTPATIEN INC T OFFICE 28240 [facility] HARPEL OUTPATIEN 6 6 PHYSICIAN ISH T VISIT S GROUP 25 MINUTES HOSPITAL HARINI - 6 6 [facility] OUTPATIEN INC T OFFICE 00048 [facility] HARPEL OUTPATIEN 6 6 PHYSICIAN ISH T VISIT S GROUP 25 MINUTES OFFICE 96499 ELIO RODRIGUEZ OUTPATIEN 6 6 JENNIFER DENG T VISIT 25 MINUTES HOSPITAL [facility] - 6 6 [facility] OUTPATIEN INC T INITIAL 62117 ELIO RODRIGUEZ PREVENTIV 6 6 JENNIFER DENG E MEDICINE NEW PATIENT 40-64YRS EMERGENCY 33701 SELENA HEIN 6 6 PHYSICIAN [facility] DEPARTMEN S, [facility] T VISIT HIGH/URGE NT SEVERITY HOSPITAL HAR[facility]I - 6 6 [facility] OUTPATIEN INC T EMERGENCY 74305 [facility] 6 6 [facility] DEPARTMEN INC T VISIT MODERATE SEVERITY OFFICE 61180 [facility] DIRK OUTPATIEN 6 6 PHYSICIAN MAT T VISIT S GROUP 25 MINUTES HOSPITAL HAR[facility]I - 6 6 [facility] OUTPATIEN INC T [facility]OSPITAL [facility] - 6 6 [facility] OUTPATIEN INC T OFFICE 65334 [facility] KAMERON TOD OUTPATIEN 6 6 PHYSICIAN T VISIT S GROUP 15 MINUTES EMERGENCY 98241 SELENA MULLINS DEPT 6 6 PHYSICIAN U SHREYA VISIT [facility] HIGH SEVERITY& THREAT [facility]PITAL HARINI - 6 6 [facility] OUTPATIEN INC T EMERGENCY 32531 [facility] 6 6 [facility] DEPARTMEN INC T VISIT HIGH/URGE NT SEVERITY HOSPITAL HAR[facility]I - 6 6 [facility] OUTPATIEN [facility] T OFFICE 71156 [facility] KAMERON TOD OUTPATIEN 6 6 PHYSICIAN T VISIT S GROUP 15 MINUTES HOSPITAL HARINI - 6 6 [facility] - 5 5 [facility] OUTPATIEN [facility] T OFFICE 36356 [facility] KAMERON TOD OUTPATIEN 5 5 PHYSICIAN T VISIT S GROUP 15 MINUTES HOSPITAL HARINI - 5 5 [facility] - 5 5 [facility] OUTPATIEN [facility] T OFFICE 69520 [facility] KAMERON TOD OUTPATIEN 5 5 PHYSICIAN T VISIT S GROUP 15 MINUTES HOSPITAL HARINI - 5 5 [facility] OUTPATIEN [facility] T OFFICE 11528 [facility] KAMERON TOD OUTPATIEN 5 5 PHYSICIAN T VISIT S GROUP 15 MINUTES HOSPITAL HARINI - 5 5 [facility] - 5 5 [facility] OUTPATIEN [facility] T OFFICE 22873 [facility] KAMERON TOD OUTPATIEN 5 5 PHYSICIAN T VISIT S GROUP 15 MINUTES HOSPITAL HARINI - 5 5 [facility] OUTPATIEN [facility] EMERGENCY 59932 [facility] DEPT 5 5 DERIC O VISIT EMERGENCY HIGH PHYS SEVERITY& THREAT FUN OFFICE 42012 [facility] KAMERON TOD CONSULTAT 5 5 PHYSICIAN ION S GROUP NEW/ESTAB PATIENT 30 MIN EMERGENCY 28926 [facility] 5 5 DERIC [facility] EMERGENCY T VISIT PHYS HIGH/URGE NT [facility] HOSPITAL MAGDY - 5 5 [facility] 09734 [place] DEPT 5 5 [facility] HIGH SEVERITY& THREAT FUNJ EMERGENCY 89678 [facility] CELLAROSI 5 5 DERIC - YORBA DEPARTMEN EMERGENCY PAT T VISIT PHYS HIGH/URGE NT SEVERITY OFFICE 50365 [facility] ANGEL LUIS OUTPATIEN 5 5 PHYSICIAN KARLA T VISIT S GROUP 10 MINUTES OFFICE 35333 [facility] ANGEL LUIS OUTPATIEN 5 5 PHYSICIAN KARLA T VISIT S GROUP 10 MINUTES HOSPITAL HARINI - 5 5 [facility] OUTPATIEN INC T OFFICE 20042 [facility] ANGEL LUIS OUTPATIEN 5 5 PHYSICIAN KARLA T VISIT S GROUP 15 MINUTES HOSPITAL HARINI - 5 5 [facility] OUTPATIEN INC T OFFICE 41990 [facility] KAMERON TOD CONSULTAT 5 5 PHYSICIAN ION S GROUP NEW/ESTAB PATIENT 40 MIN OFFICE 66782 [facility] ANGEL LUIS OUTPATIEN 5 5 PHYSICIAN KARLA T VISIT S GROUP 15 MINUTES OFFICE 33851 [facility] DIRK OUTPATIEN 5 5 CULAR MAT T VISIT CONSULTAN 15 TS O MINUTES HOSPITAL [facility] - 5 5 [facility] - 5 5 [facility] HARINI - 5 5 [facility] OUTPATIEN [facility] HARINI - 5 5 [facility] OUTPATIEN [facility] T OFFICE 42698 CARDIOVAS DIRK OUTPATIEN 5 5 CULAR MAT T NEW 60 CONSULTAN MINUTES TS O HOSPITAL [facility]I - 5 5 [facility]PATIEN [facility] EMERGENCY 02500 [facility] FRANCOIS 4 4 DERIC [facility] EMERGENCY T VISIT PHYS MODERATE SEVERITY OFFICE 77302 [facility] ANGEL LUIS OUTPATIEN 4 4 PHYSICIAN KARLA T VISIT S GROUP 15 MINUTES EMERGENCY 88188 [facility] BAB 4 4 [facility] EMERGENCY T VISIT PHYS MODERATE SEVERITY OFFICE 41291 [facility] ANGEL LUIS OUTPATIEN 4 4 PHYSICIAN KARLA T VISIT S GROUP 10 MINUTES HOSPITAL HARINI - 4 4 [facility] OUTPATIEN INC T HOSPITAL HARINI - 4 4 [facility] OUTPATIEN [facility] T OFFICE 85143 ANGEL ORTIZ OUTPATIEN 4 4 EDINSilvia JANGZ T VISIT 25 MINUTES HOSPITAL HARINI - 4 4 [facility] OUTPATIEN [facility] T OFFICE 84531 [facility] OUTPATIEN 4 4 KARLA KARLA T VISIT 25 MINUTES HOSPITAL HAR[facility]I - 4 4 [facility] OUTPATIEN [facility] T HOSPITAL JOLEENON - 4 4 [facility] T EMERGENCY 01037 JOLEENON 4 4 [facility] T VISIT MODERATE SEVERITY EMERGENCY 40681 [facility] SWINEY 4 4 PAT PAT DEPARTMEN T VISIT HIGH/URGE NT SEVERITY OFFICE 78173 TORI VALLE OUTPATIEN 4 4 MALCOM MALCOM T NEW 45 MINUTES OFFICE 28889 FILIBERTO DE LOS SANTOS JR OUTPATIEN 4 4 YANNI YANNI T NEW 30 MINUTES EMERGENCY 56744 GARETT II GARETT II 4 4 THO O DEPARTMEN T VISIT HIGH/URGE NT SEVERITY EMERGENCY 80649 [facility] SWINE[facility] DEPT 4 4 PAT PAT VISIT HIGH SEVERITY& THREAT FUNCJ OFFICE 59596 BOO HADDAD OUTPATIEN 9 9 , KAYDENKAYDEN Purcell T VISIT 15 MINUTES OFFICE 58880 SCHULSTAD SCHULSTAD CONSULTAT 9 9 , KAYDEN CHADL ION NEW/ESTAB PATIENT 60 MIN OFFICE 81684 PRIMARY YEMI, OUTPATIEN 9 9 [facility] MARY Jernigan T VISIT ASSOCIATE 15 S PSC MINUTES OFFICE 82102 PRIMARY MIRI BRAGGEN 9 9 [facility] MARY T VISIT ASSOCIATE 15 S PSC MINUTES EMERGENCY 87523 [facility] DEPT 9 9 DERIC VISIT EMERGENCY HIGH PHYS INC SEVERITY& THREAT FUNCJ OFFICE 96206 PRIMARY KARI BRAGGPATIEN 9 9 [facility] MARY T VISIT ASSOCIATE 15 S PSC MINUTES OFFICE 87441 PRIMARY MIRI BRAGGEN 9 9 [facility] MARY T VISIT ASSOCIATE 25 S PSC MINUTES EMERGENCY 79579 [facility] 9 9 [facility] T VISIT MODERATE SEVERITY [facility]OSP[facility] [place] - 9 9 [facility] T EMERGENCY 10775 [facility] DEPT 9 9 DERIC ASIF C VISIT EMERGENCY HIGH PHYS INC SEVERITY& THREAT FUNCJ OFFICE 67937 PRIMARY KARI BRAGGPATIEN 8 8 [facility] MARY T VISIT ASSOCIATE 15 S PSC MINUTES [facility] T OFF[facility] 68328 PRIMARY KARI BRAGGPATIEN 8 8 [facility] MARY T VISIT ASSOCIATE 15 S PSC MINUTES OFFICE 53215 [facility] ALL[facility]AN OUTPATIEN 8 8 JR TAHIRA, T VISIT NGOC Hubbard 15 MINUTES OFFICE 37208 PRIMARY YEMI, OUTPATIEN 8 8 [facility] MARY T VISIT ASSOCIATE 25 S PSC MINUTES [facility] 8 [facility] T OFFICE 73009 [facility] CONSULTAT 8 8 JR TAHIRA, ION NGOC Hubbard NEW/ESTAB PATIENT 60 MIN OFFICE 32753 PRIMARY YEMI KARIJULIA 8 8 [facility] VISIT ASSOCIATE 15 S PSC MINUTES [facility] 8 8 [facility] T OFFICE 14076 PRIMARY DARWIN BRAGG 8 8 [facility] VISIT ASSOCIATE 25 S PSC MINUTES OFFICE 09483 [facility] 8 8 [facility] NEW 45 ASSOCIATE MINUTES S PSC
--- OUTSIDE RECORDS SUMMARY | 2016-12-29 16:47 | External Medical Summary Rpt | CCD ---
Author Author , [facility] Organization [facility] Address Unknown Phone [email or web address] Care Team Providers Care Manager Pulmonary Name Role Phone NGOC BARRERA JR, Unavailable Unavailable NGOC BARRERA JR, J, Unavailable Unavailable Eliel WOODSON BEINEKE Unavailable Unavailable SHREYA DUGGAN, FRANCOIS Unavailable Unavailable OLGA LIDIA BESSON ILEANA, BESSON Unavailable Unavailable ILEANA [facility] Unavailable Unavailable [facility]ORATORIES, [facility] LANDEROS, LANDEROS Unavailable Unavailable LANDEROS ALL, LANDEROS ALL Unavailable Unavailable [facility] Unavailable Unavailable [facility], [facility] MARY BRAGG, Unavailable Unavailable MARY BRAGG FIGUEROA [...] FALLUJI EDIN, FALLUJI Unavailable Unavailable EDIN FALLUJI EIDN, FALLUJI Unavailable Unavailable EDIN YMLIANE, FRYMAN Unavailable [...] Unavailable Unavailable INC, [facility], Unavailable Unavailable [facility] HORMANN MAR, HORMANN Unavailable Unavailable [facility] Un[facility] Unavailable SERVICES O, [facility] HOUSMAN YANNI, HOUSMAN Unavailable Unavailable YANNI FU-ZACHARY, Unavailable Unavailable ROSLYN, TANK-ZACHARY, ROSLYN [facility] Un[facility], [facility], [facility] Unavailable Unavailable [facility]INGS, [facility] AUGUSTINE JR DWI, AUGUSTINE Unavailable Unavailable JR DWI ULLOA MARGARET, ULLOA Unavailable Unavailable MARGARET MARCHINO ILEANA, Unavailable Unavailable MARCHINO ILEANA [facility], Unavailable Unavailable [facility], Unavailable Unavailable [facility] Un[facility] Unavailable Unavailable EMS, [facility], Unavailable Unavailable PLLC, [...] Unavailable Unavailable EQUIPME, [facility] SH[facility], Unavailable Unavailable SOTINGEANU SHREYA [facility] Unavailable Unavailable EMERGENCY PHYS, [facility] Unavailable Unavailable EMERGENCY PHYSI, [facility]SI ALFREDITO, ALFREDITO Unavailable Unavailable ALFREDITO SHE, Unavailable Unavailable ALFREDITO SHE ALANIZ OLGA LIDIA, Unavailable Unavailable ALANIZ OLGA LIDIA ALANIZ OLGA LIDIA, Unavailable Unavailable ALANIZ OLGA LIDIA SWINEY PAT, SWINEY Unavailable Unavailable PAT SWINEY PAT, SWINEY Unavailable Unavailable PAT [facility] Unavailable Unavailable #[id number], [phone], [facility]available Unavailable [phone], Unavailable Unavailable [facility] ASIF SHANKAR, Unavailable Unavailable ASIF SHANKAR Purpose Continuity of Care Document - 09-17-2007 through 2016 Problems Code Diagnosis DOS Provider Status R1030 LOWER 11-02-2016 [facility] ABDOMINAL PHYSICIANS PAIN GROUP UNSPECIFIED I10 ESSENTIAL 10-24-2016 [facility] HYPERTENSIO INC N K219 GASTRO-ESOP 10-24-2016 [facility]UX [facility] DISEASE INC WITHOUT ESOPHAGITIS R1011 RIGHT UPPER 10-24-2016 [facility] R1013 EPIGASTRIC 10-24-2016 [facility] R1031 RIGHT LOWER 10-24-2016 [facility] PAIN PLL Z720 TOBACCO USE 10-24-2016 [facility] E039 HYPOTHYROID 10-16-2016 [facility] ISM [facility] UNSPECIFIED INC K588 OTHER 09-04-2016 [facility] IRRITABLE PHYSICIANS BOWEL GROUP SYNDROME R102 PELVIC AND 09-04-2016 [facility] PERINEAL PHYSICIANS PAIN GROUP M5136 OTH 06-16-2016 [facility] DISC IMAGING ASS DEGEN LUMBAR REGION M5442 LUMBAGO 06-16-2016 [facility] WITH PHYSICIANS, SCIATICA PLLC LEFT SIDE M545 LOW BACK 06-16-2016 [facility] PAIN [facility]ICAL [facility] G646RIC SPRAIN 06-16-2016 [facility] LIGAMENTS PHYSICIANS, LUMBAR PLLC SPINE INITIAL ENCOUNTER 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 [facility] 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 [facility] INC N07450 HORMONE 06-16-2016 [facility] REPLACEMENT [facility] THERAPY INC Z42968 OTHER LONG 06-16-2016 [facility] TERM [facility] CURRENT INC DRUG THERAPY Z886 ALLERGY 06-16-2016 [facility] STATUS TO [facility] ANALGESIC INC AGENT STATUS Z889 ALLERGY 06-16-2016 [facility] STATUS UNS [facility] RX MEDS & INC BIOLOG SUBSTANC STS M5116 INTERVERTEB 06-03-2016 [facility] RAL DISC PHYSICIANS, D/O PLLC W/RADICULOP ATHY LUMB RGN M5416 RADICULOPAT 06-03-2016 [facility] HY LUMBAR [facility] REGION INC [id number] CONTUSION 12-28-2016 [facility] OF LEFT PHYSICIANS, LOWER LEG PLLC INITIAL ENCOUNTER G13625 PERSONAL 03-15-2016 [facility] HISTORY OF [facility] NICOTINE INC DEPENDENCE N951 MENOPAUSAL 01-31-2016 [facility] AND FEMALE PHYSICIANS CLIMACTERIC GROUP STATES H109 UNSPECIFIED 12-16-2015 [facility] CONJUNCTIVI PHYS TIS G4733 OBSTRUCTIVE 11-25-2015 [facility]A ADULT MEDICAL PEDIATRIC EQUIPME E860 DEHYDRATION 11-17-2015 [facility], [facility] R05 COUGH 11-17-2015 [facility] R079 CHEST PAIN 11-17-2015 [facility]PECIFIED [facility] N179 ACUTE 11-16-2015 [facility] KIDNEY MEDICINE FAILURE SERVICES O UNSPECIFIED [id number] TOXIC 11-16-2015 HOSPITAL EFFECT OT MEDICINE TOBACCO & SERVICES O NICOTINE ACC INIT ENC G629 POLYNEUROPA 11-14-2015 [facility] J449 CHRONIC 11-14-2015 [facility] PULMONARY [facility] DISEASE UNS N170 ACUTE RENAL 11-14-2015 [facility] TUBULAR NECROSIS R110 NAUSEA 11-14-2015 [facility] N173ODF HEAT 11-14-2015 [facility] UNSPECIFIED PHYSI INITIAL ENCOUNTER L732 HIDRADENITI 11-09-2015 [facility] S PHYSICIANS SUPPURATIVA GROUP N736 FEMALE 10-21-2015 [facility] PELVIC PHYSICIANS PERITONEAL GROUP ADHESIONS POSTINFECTI VE R1032 LEFT LOWER 10-18-2015 [facility] QUADRANT PHYSICIANS PAIN GROUP K5900 CONSTIPATIO 10-07-2015 [facility] MEDICAL UNSPECIFIED IMAGING ASS R109 UNSPECIFIED 10-07-2015 [facility] ABDOMINAL ANESTH OF PAIN THE BLUE D481 NEOPLASM 08-05-2015 ELIO RODRIGUEZ MD [facility] CONNCTIVE & OTH SOFT TISS I083 COMB 08-03-2015 [facility]HE[facility]AT D/O SERV MITRAL FOUNDATION AORTC & TRICUSPID VALVES I350 NONRHEUMATI 08-03-2015 [facility] [place]es AORTIC [facility] VALVE INC STENOSIS N761 SUBACUTE 07-05-2015 [facility] AND CHRONIC PHYSICIANS VAGINITIS GROUP A10611 ENCOUNTER 07-05-2015 [facility] KR[facility]NA [facility] PREPROCEDUR INC AL LABORATORY EXAM J36974 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 JENNIFER ESQUIVEL GENERAL RTN W/O ABNORMAL FIND Z1212 ENCOUNTER 05-13-2015 ELIO RODRIGUEZ MD MALIGNANT NEOPLASM RECTUM E785 HYPERLIPIDE 05-11-2015 [facility] QUINTIN PHYSICIANS UNSPECIFIED GROUP G4730 SLEEP APNEA 05-11-2015 [facility] PHYSICIANS UNSPECIFIED GROUP I119 HYPERTENSIV 05-11-2015 [facility] E HEART PHYSICIANS DISEASE GROUP WITHOUT HEART FAILURE I209 ANGINA 05-11-2015 [facility] PECTORIS PHYSICIANS UNSPECIFIED GROUP I2510 ASHD [place] 05-11-2015 [facility] 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 GROUP ANGINA PECTORIS 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 [facility] INSUFFICIEN PHYSICIANS CY OF GROUP AORTIC VALVE R0600 DYSPNEA 05-11-2015 [facility] UNSPECIFIED PHYSICIANS GROUP E669 OBESITY 04-30-2015 [facility] UNSPECIFIED [facility] INC R9439 ABNORMAL 04-30-2015 [facility] RESULT OT MEM [facility] CARDIOVASCU INC LR FUNCTION STUDY Z6841 BODY MASS 04-30-2015 [facility] INDEX BMI MEM HOSP 40.0-44.9 INC ADULT D59736 ENCOUNTER 04-28-2015 [facility] FOR OTHER MEM [facility] PREPROCEDUR INC AL EXAMINATION K529 NONINFECTIV 04-05-2015 [facility] E PHYSICIANS, GASTROENTER PLLC ITIS & COLITIS UNS R0683 SNORING 04-05-2015 [facility] R5383 OTHER 04-05-2015 [facility] FATIGUE [facility] INC I712 THORACIC 04-01-2015 [facility] AORTIC SERV ANEURYSM FOUNDATION WITHOUT RUPTURE N8320 UNSPECIFIED 03-23-2015 [facility] CYSTS [facility]ING ASS N644 MASTODYNIA 03-05-2015 [facility] R928 OTH ABNORM 03-05-2015 [place] & MEDICAL INCONCLUSIV IMAGING ASS E FIND ON DX IMAG BREAST D164 BENIGN 01-11-2015 [facility] NEOPLASM OF PHYSICIANS BONES OF GROUP SKULL AND FACE N6452 NIPPLE 01-11-2015 [facility] DISCHARGE PHYSICIANS GROUP M899 DISORDER OF 12-18-2014 [place] BONE MEDICAL UNSPECIFIED IMAGING ASS R220 LOCALIZED 12-18-2014 [place] SWELLING MEDICAL MASS AND IMAGING ASS LUMP HEAD 217 BENIGN 11-26-2014 [facility] NEOPLASM OF PHYSICIANS BREAST GROUP 6101 DIFFUSE 11-26-2014 [facility] CYST[facility] MASTOPATHY 6102 FIBROADENOS 11-26-2014 [facility] IS OF LLC BREAST 52141 OTHER SIGN 11-26-2014 [facility] AND SYMPTOM ANESTH OF IN BREAST THE BLUE 50113 OTHER 11-26-2014 [facility] SPECIFIED LLC DISORDERS OF BREAST 7062 SEBACEOUS 11-26-2014 [facility] CYST ANESTH OF THE BLUE 7820 DISTURBANCE 11-16-2014 [facility] OF SKIN PHYSICIANS SENSATION GROUP 5368 DYSPEPSIA&O 11-07-2014 [facility] THER SPEC N EMERGENCY DISORDERS PHYS FUNCTION STOMACH 52243 ABDOMINAL 11-07-2014 [facility] PAIN, LEFT N EMERGENCY UPPER PHYS QUADRANT 29808 OBST 10-23-2014 [facility] CHRONIC N EMERGENCY BRONCHITIS PHYS W/ACUTE BRONCHITIS 61177 SHORTNESS 10-23-2014 [facility] [place] OF BREATH RADIOLOGY 4019 UNSPECIFIED 10-19-2014 [place] [facility]SSENTIAL [facility] HYPERTENSMETHODIST HOSPITALS N 462 ACUTE 10-19-2014 [facility] PHARYNGITIS [facility] 64918 ASTHMA, 10-19-2014 [facility] UNSPECIFIED N EMERGENCY , PHYS UNSPECIFIED STATUS 93835 WHEEZING 10-19-2014 [facility] N EMERGENCY PHYS 59677 CHEST PAIN 10-19-2014 [facility] HOSPITAL V145 PERSONAL 10-19-2014 [place] HISTORY OF COMMUNITY ALLERGY TO HOSPITAL NARCOTIC AGENT V146 PERSONAL 10-19-2014 [place] HISTORY OF COMMUNITY ALLERGY TO HOSPITAL ANALGESIC AGENT V5866 LONG-TERM 10-19-2014 [place] USE OF [facility] V5869 LONG-TERM 10-19-2014 [place] (CURRENT) COMMUNITY USE OF HOSPITAL OTHER MEDICATIONS 6110 INFLAMMATOR 09-24-2014 [facility] Y DISEASE PHYSICIANS OF BREAST GROUP 30156 MASTODYNIA 07-23-2014 [facility] 40788 OTHER 07-23-2014 [place] ABNORMAL MEDICAL FINDING IMAGING ASS RADIOLOGICA L EXAM BREAST 81569 PAIN IN 07-20-2014 [facility] JOINT PHYSICIANS PELVIC GROUP REGION AND THIGH 64238 HIDRADENITI 05-15-2014 [facility] 38279 OBESITY, 04-21-2014 [facility] UNSPECIFIED PHYSICIANS GROUP 7243 SCIATICA 04-21-2014 [facility] PHYSICIANS GROUP 4241 AORTIC 04-14-2014 [facility] VALVE [facility] DISORDERS INC 81792 OCCLUSION&S 04-14-2014 [facility] TENOS LAR CAROTID ART CONSULTANTS W/O O MENTION INFARCT 496 CHRONIC 04-14-2014 [facility] AIRWAY LAR OBSTRUCTION CONSULTANTS NEC O 4259 UNSPECIFIED 04-09-2014 [facility] SECONDARY [facility] CARDIOMYOPA INC THY 4280 CONGESTIVE 04-09-2014 [facility] HEART [facility] FAILURE INC UNSPECIFIED 4359 UNSPECIFIED 04-09-2014 [place] TRANSIENT MEDICAL CEREBRAL IMAGING ASS ISCHEMIA 490 BRONCHITIS 04-09-2014 [facility] NOT [facility] SPECIFIED INC ACUTE OR CHRONIC 74824 SOLITARY 04-09-2014 [place] PULMONARY MEDICAL NODULE IMAGING ASS V1254 PERSONAL HX 04-09-2014 [facility] TIA & CI [facility] W/O INC RESIDUAL DEFICITS V198 FAMILY 04-09-2014 [facility] HISTORY OF MEM [facility] OTHER INC CONDITION 4240 MITRAL 04-03-2014 [facility] DISORDERS FOUNDATION 4242 TRICUSPID 04-03-2014 [facility] DISORDERS FOUNDATION SPEC NONRHEUMATI C 95359 OTHER 04-03-2014 [facility] SPECIFIED [facility] CONGENITAL INC ANOMALY HEART OTHER 10520 OTHER 04-03-2014 [facility] MEDICAL DYSPNEA AND SERV FOUNDATION RESPIRATORY ABNORMALITI ES V1749 FAMILY 03-31-2014 [facility] HISTORY OF MEM [facility]OS[facility] OTHER INC CARDIOVASCU LAR DISEASES 04422 CONGENITAL 03-24-2014 [facility] [place] OF [place] [address] UNSPECIFIED 02-27-2014 [facility] INFECTIVE N EMERGENCY OTITIS PHYS EXTERNA 7245 UNSPECIFIED 02-25-2014 [facility] BACKACHE PHYSICIANS GROUP 96756 UNS ADVRS 02-25-2014 [facility] EFF OT RX PHYSICIANS MEDICINAL&B GROUP IOLOGICAL SBSTNC 3670 HYPERMETROP 02-23-2014 [facility] 6822 CELLULITIS 01-21-2014 [facility] AND ABSCESS N EMERGENCY OF TRUNK PHYS 90230 PAIN IN 12-29-2013 [facility] JOINT, SITE PHYSICIANS GROUP UNSPECIFIED 7852 UNDIAGNOSED 10-02-2013 F[facility] EDIN CARDIAC MURMURS 1120 CANDIDIASIS 07-18-2013 [facility] OF MOUTH [facility] INC 7296 RESIDUAL 07-18-2013 [facility] FOREIGN BODY IN SOFT TISSUE 586 UNSPECIFIED 07-11-2013 [facility] 6824 CELLULITIS& 07-11-2013 [facility] PAT ABSCESS OF HAND EXCEPT FINGERS&MICHELLE MB 9146 HND NO 07-11-2013 [facility] PAT FINGR SUP FB W/O GRANT OPN WND&W/O INF 9147 HAND NO 07-11-[address] [facility] SUP FB W/O HOSPITAL GRANT OPN WOUND INF E915 FOREIGN 07-11-2013 [facility] PAT BODY ACCIDENTALL Y ENTERING OTHER ORIFICE 6250 DYSPAREUNIA 07-03-2013 [facility] 6259 UNSPEC 07-03-2013 [facility] SYMPTOM ASSOC W/FEMALE GENITAL ORGANS 6273 POSTMENOPAU 07-03-2013 [facility] MALCOM [facility]EDRICK ATROPHIC VAGINITIS V7231 ROUTINE 07-03-2013 [facility] GYNECOLOGIC GIULIA AL EXAMINATION 59866 COR 06-19-2013 FILIBERTO HOFFMANN ATHEROSLERO YANNI UNSPEC TYPE VESSEL [place]/NEW T 75254 UNSPECIFIED 06-19-2013 FILIBERTO HOFFMANN YANNI ARTHROPATHY SITE UNSPECIFIED 10064 MIXED 06-19-2013 FILIBERTO HOFFMANN INCONTINENC YANNI E URGE AND STRESS 54934 ABDOMINAL 05-03-2013 [facility] PAIN RIGHT OLGA LIDIA LOWER QUADRANT 08540 PAINFUL 04-19-2013 [facility] PAT RESPIRATION 2449 UNSPECIFIED [...] [facility] PSC 7231 CERVICALGIA 11-11-2007 [facility] 09497 ABDOMINAL 11-11-2007 [facility] [place] PAIN, RADIOLOGY UNSPECIFIED SITE 00388 UNSPECIFIED 11-05-2007 [facility] N PSC 89434 ESOPHAGEAL 10-31-2007 [place] [facility] ANESTHESIA GROUP PSC 5533 DIAPHRAGMAT 10-31-2007 [facility]ORA W/O NKLIN, MENTION ROSLYN OBSTRUCTION /GANGREN 29038 ABDOMINAL 10-31-2007 [facility] PAIN, NKLIN, EPIGASTRIC ROSLYN 18189 ABDOMINAL 10-02-2007 [facility] [place] PAIN RIGHT RADIOLOGY UPPER QUADRANT 57397 NAUSEA WITH 09-27-2007 [facility] [place] VOMITING RADIOLOGY 56354 OTHER&UNSPE 09-25-2007 PRIMARY CIFIED DISC [facility] OF LUMBAR PSC REGION 2720 PURE 09-24-2007 [facility] HYPERCHOLES [facility] TEROLEMIA [facility] 2777 DYSMETABOLI 09-24-2007 [facility] SY[facility]OME [facility] X HOSPITAL 28604 OTHER 09-24-2007 [facility] V7612 OTHER 09-24-2007 [facility] [place] [...] NT ET HI AN A IN C MN 55 09 30 30 00 EA Ac [...] 50 2- 9- 00 00 SI ve MN 62 20 20 49 DE [place] 01 [...] NT ET HI AN A IN C MN 55 07 08 30 30 00 EA [...] 50 1- 5- 00 00 SI ve MN 62 20 20 49 DE IL 01 [...] 07 07 60 30 00 EA Ac MN 18 -0 -[address] ti [...] 50 5- 8- 00 00 SI ve MN 62 20 20 49 DE IL 01 [...] 50 0- 3- 00 00 SI ve MN 62 20 20 47 DE IL 01 [...] HI UL AN E A IN C MN 55 05 06 30 30 00 EA [...] 00 05 60 30 00 EA Ac MN 18 -3 -[address] ti [...] 04 04 60 30 00 EA Ac MN 18 -0 -[address] ti [...] CY NT HI AN A IN C MN 55 04 04 30 30 00 EA [...] 70 5- 8- 00 00 SI ve MN 35 20 20 47 DE IL 41 [...] CY NT HI AN A IN C MN 00 03 04 10 5 00 EA [...] 5 84 PH CE AR TA MA VT CY NO PH OF EN CY NT [...] NO 50 7- - 00 SI ve MN 62 20 20 47 DE IL 01 [...] HI UL AN E A IN C MN 55 03 03 30 30 00 EA [...] 03 03 60 30 00 EA Ac MN 18 -0 -[address] ti [...] 02 03 60 30 00 EA Ac MN 18 -0 -[address] ti [...] NO 50 4- 7- 00 SI ve MN 62 20 20 46 DE IL 01 [...] HI UL AN E A IN C MN 55 01 02 30 30 00 EA [...] HI UL AN E A IN C MN 55 12 04 17 30 00 EA [...] 50 0- 3- 00 00 SI ve MN 62 20 20 46 DE IL 01 [...] 4- 2- 00 MA 61 SK ve MN 34 20 20 RT 7 Y AM [...] 3- 1- 00 MA 03 SK ve MN 34 20 20 RT 0 Y AM [...] 7 GS RA 30 08 08 -C VT 5 PH ON DE AR KL MA [...] CE 1 PH NN TA AR ET VT MA H NO CY M PH EN [...] Procedure DOS Code Location Performer Comment COMPREHEN 40509 [facility] SCHULER SIVE 7 [facility] METABOLIC INC INC PANEL CULTURE 80660 [facility] SCHUELR BACTERIAL 7 MEM H[facility]OS[facility] [place] [address] [facility] HANKS JACQUELINE ABDOMINAL 7 MEM HOS[facility] [place] REAL INC HOLDINGS TIME W/IMAGE LIMITED URNLS DIP 46014 [facility] SCHULER 7 [facility] H[facility] STICK/TAB INC INC [place] [address] [facility] SCHULER AMYLASE 7 MEM HOSP [facility] INC INC CREATINE 12887 [facility] SCHULER KINASE MB 7 MEM HOSP [facility] FRACTION INC INC ONLY FINAL G9638 YESI LANDEROS REPORTS 7 MEDICAL W/O DOC IMAGING 1/[place] [address] [facility] SCHULER TROPONIN 7 MEM HOSP MEM [facility]OS[facility] QUANTITAT INC INC MARYLOU BLOOD 84994 [facility] SCHULER COUNT 7 MEM HOSP [facility] COMPLETE INC INC AUTO&AUTO DIFRNTL WBC FINAL G9551 YESI LANDEROS REPR ABD 7 MEDICAL IMAG STS IMAGING W/O ASS INCIDNT FND LES NTD: [place] [address] [facility] SCHULER ABDOMEN & 7 MEM HOSP MEM HOS[facility] PELVIS INC INC W/CONTRAS T MATERIAL ECG 42055 [facility] ROUTINE 7 PHYSICIAN ECG S, PLLC W/LEAST 12 LDS I&R ONLY CREATINE 55756 [facility] SCHULER KINASE 7 MEM HOSP [place] [address] [facility] SCHULER LIPASE 7 MEM HOSP MEM [facility]OS[facility] INC INC ECG 51072 [facility] SCHULER ROUTINE 7 MEM HOSP MEM HOSP ECG INC INC W/LEAST 12 LDS TRCG ONLY W/O I&[place] [address] [facility] SCHULER THYROID 7 MEM HOSP [facility]OS[facility] STIMULATI INC INC NG HORMONE TSH RADEX 42931 [facility] SCHULER SPINE 7 MEM HOSP MEM HOS[facility] LUMBOSACR INC INC AL MINIMUM 4 VIEWS THERAPEUT 89403 [facility] SCHULER IC 7 MEM HOS[facility]OS[facility] INJECTION [place] [address] [facility] SCHULER LIPASE 7 MEM HOSP [facility]OS[facility] INC INC THER 79148 [facility] SCHULER PROPH/DX 7 MEM [facility] NJX IV INC INC PUSH SINGLE/1S T SBST/[place] [address] [facility] SCHULER ABDOMEN & 7 MEM HOSP MEM HOSP PELVIS INC INC W/O CONTRAST MATERIAL FINAL G9638 [facility] DYSONROS[facility]O REPORTS 7 MEDICAL W/O DOC IMAGING 1/MORE ASS DOSE REDUCTION TECH FINAL G9551 [facility] ROS[facility]O REPR ABD 7 MEDICAL IMAG STS IMAGING W/O ASS INCIDNT FND LES NTD: BLOOD 62354 [facility] SCHULER COUNT 7 MEM HOSP [facility] COMPLETE INC INC AUTO&[place] [address] [facility] SCHULER AMYLASE 7 MEM HOSP [facility]OS[facility] INC INC URNLS DIP 52098 [facility] SCHULER 7 MEM HOSP [facility]OS[facility] STICK/TAB INC INC LET REAGENT AUTO MICROSCOP Y COMPREHEN 81093 [facility]IN[facility] SCHULER SIVE 7 MEM HOSP [facility] METABOLIC INC INC PANEL COMPREHEN 62972 [facility]IN[facility] SCHULER SIVE 6 [facility] H[facility] [place] [address] [facility] SCHULER THYROXINE 6 [facility] [place] [place] [address] [facility] SCHULER THYROID 6 MEM HOSP MEM HOSP STIMULATI INC INC NG HORMONE TSH CONTINUOU E0601 [facility] HERRERA S 6 HOME ILEANA POSITIVE MEDICAL AIRWAY EQUIPME PRESSURE DEVICE RADIOLOGI 76821 [facility] L[facility] ALL C 6 MEDICAL EXAMINATI IMAGING ON CHEST ASS [facility]ING[facility] 39881 [facility] 6 MEDICINE YANNI DAY SERVICES MANAGEMEN O T > [address] [facility] 6 MEDICINE SHAW CARE/DAY SERVICES 70 O MINUTES CONTINUOU E0601 [facility] MATT S 6 HOME HOME POSITIVE MEDICAL MEDICAL AIRWAY EQUIPME EQUIPME PRESSURE DEVICE COLONOSCO 62135 [facility] KAMERON TOD PY FLX DX 6 PHYSICIAN W/COLLJ S GROUP SPEC WHEN PFRMD ANES 12943 [facility] 6 ANESTH INTESTINE OF THE BLUE ENDOSCOPY DISTAL DUODENUM RADEX 20460 YESI LANDEROS ALL COLON 6 MEDICAL W/SPEC [...] MEDICAL AIRWAY EQUIPME EQUIPME PRESSURE DEVICE THYROID 41330 [facility] SCHULER HORM 6 [facility] UPTK/THYR INC [place] [address] [facility] SCHULER THYROXINE 6 MEM HOS[facility] [place] [address] [facility] SCHULER THYROID 6 MEM HOSP MEM HOSP STIMULATI INC INC NG HORMONE TSH ECHO 30722 [facility] SCHULER TTHRC R-T 6 MEM HOSP [facility]OS[facility] 2D INC INC W/WOM-MOD E COMPL SPEC&COLR D SLEEP STD 55250 HARINIHARIS SCHULER AIRFLOW 6 MEM HOSP MEM HOS[facility] HRT INC INC RATE&O2 [place] [address] [place] LANDEROS ALL TRACT UPR 6 MEDICAL W/SM INT IMAGING W/MULT ASS SERIAL IMAGES PRESSURIZ 05408 [facility] SCHULER ED/NONPRE 6 MEM HOSP MEM [...] HOSP MEM HOSP INC INC LAPS ABD 51432 [facility] SCHULER PRTM&OMEN 6 MEM HOSP [facility]OS[facility] KATYA DX INC INC W/WO SPEC BR/WA SPX URNLS DIP 45512 [facility] SCHULER 6 MEM HOSP [facility]OS[facility] STICK/TAB INC INC LET REAGENT AUTO MICROSCOP Y ANESTHESI 13243 [facility] 6 ANESTH SHE INTRAPERI OF THE TONEAL BLUE LOWER ABD W/LAPS NOS BLOOD 64138 [facility] SCHULER COUNT 6 MEM HOS[facility] MEM [facility]OS[facility] COMPLETE INC INC AUTO&AUTO DIFRNTL WBC URNLS DIP 01064 HARINIHARIS SCHULER 6 MEM HOSP MEM HOSP STICK/TAB INC INC LET REAGENT AUTO MICROSCOP Y SMR PRIM 15637 [facility] SRC WET 6 PHYSICIAN ISH [facility] NFCT AGT COLLECTIO 23520 HARINI SCHULER N VENOUS 6 [facility] [place] [address] HARINI SCHULER TRANSVAGI 6 [facility] NAL INC INC IADNA 95221 BIO BIO TRICHOMON 6 REFERNCE REFERNCE LABORATOR LABORATOR VAGINALIS IES IES AMPLIFIED PROBE TECH IADNA 96301 ELIO Fry NEISSERIA 6 JENNIFER RODRIGUEZ MD GONORRHOE AE DIRECT PROBE TQ IADNA 27054 BIO BIO NEISSERIA 6 REFERNCE REFERNCE LABORATOR LABORATOR GONORRHOE IES IES AE AMPLIFIED PROBE TQ IADNA NOS 23990 BIO BIO 6 REFERNCE REFERNCE AMPLIFIED LABORATOR LABORATOR PROBE TQ IES IES EACH ORGANISM BLOOD 98330 ELIO RODRIGUEZ OCCULT 6 JENNIFER ESQUIVEL ISH PEROXIDAS E ACTV QUAL FECES 1-3 SPEC URINLS 23619 ELIO RODRIGUEZ DIP 6 JENNIFER ESQUIVEL ISH STICK/TAB LET REAGNT NON-AUTO MICRSCPY IADNA 35984 BIO BIO CHLAMYDIA 6 REFERNCE REFERNCE LABORATOR LABORATOR TRACHOMAT IES IES IS AMPLIFIED PROBE TQ CULTURE 84892 ELIO RODRIGUEZ CHLAMYDIA 6 JENNIFER ESQUIVEL ISH ANY SOURCE CYTP C/V 26992 BIO BIO AUTO THIN 6 REFERNCE REFERNCE LYR LABORATOR LABORATOR [place]PJ [place] [address] HARINI SCHULER ABDOMEN & 6 [facility] PELVIS INC INC W/O CONTRAST MATERIAL THER 07033 HARINI SCHULER PROPH/DX 6 [facility] NJX IV INC INC PUSH SINGLE/1S T SBST/[place] [address] HARINI SCHULER LIPASE 6 [facility] INC INC UNCLASSIF J3490 HARINI SCHULER IED DRUGS 6 [facility] INC INC THERAPEUT 33852 HARINI SCHULER IC 6 [facility] INJECTION INC INC IV PUSH EACH NEW DRUG INJECTION J2405 HARINI SCHULER 6 [facility] ONDANSETR INC INC ON HCL PER 1 [place] [address] HARINI SCHULER AMYLASE 6 [facility] INC INC URNLS DIP 34769 HARINI SCHULER 6 [facility] STICK/TAB INC INC LET REAGENT AUTO MICROSCOP Y COMPREHEN 91082 HARINI SCHULER SIVE 6 [facility] METABOLIC INC INC PANEL BLOOD 20289 HARINI SCHULER COUNT 6 [facility] COMPLETE INC INC AUTO&AUTO DIFRNTL WBC CATHETER C1887 HARINI SCHULER GUIDING 6 [facility] INC INC CATHETER C1725 HARINI SCHULER TRANSLUMI 6 [facility] NAL INC INC ANGIOPLAS TY NON-LASER GUIDE C1769 HARINI SCHULER WIRE 6 [facility] INC INC LOCM Q9967 HARINI SCHULER [phone] [facility] MG/ML INC INC IODINE CONCENTRA TION PER ML CATH PLMT 86414 CARDIOVAS DIRK L HRT & 6 CULAR MAT ARTS CONSULTAN W/NJX & TS O ANGIO IMG S&I INJECTION J1644 HARINI SCHULER HEPARIN 6 [facility] [employer] INC INC PER 1000 UNITS ECG 16519 HARINI SCHULER ROUTINE 6 [facility] ECG INC INC W/LEAST 12 LDS TRCG ONLY W/O I&R PROTHROMB 29228 HARINI SCHULER IN TIME 6 [facility] INC INC COMPREHEN 87833 HARINI SCHULER SIVE 6 [facility] METABOLIC INC INC PANEL COLLECTIO 38061 HARINI SCHULER N VENOUS 6 [facility] BLOOD INC INC VENIPUNCT URE BLOOD 48333 HARINI SCHULER COUNT 6 [facility] COMPLETE INC INC AUTO&AUTO DIFRNTL WBC GONADOTRO 11513 HARINI SCHULER PIN 6 [facility] CHORIONIC INC INC QUALITATI VE BLOOD 07919 HARINI SCHULER COUNT 6 [facility] COMPLETE INC INC AUTO&AUTO DIFRNTL WBC COMPREHEN 90010 HARINI SCHULER SIVE 6 [facility] METABOLIC INC INC PANEL URNLS DIP 56411 HARINI SCHULER 6 [facility] STICK/TAB INC INC [place] [address] HARINI SCHULER AMYLASE 6 [facility] [place] [address] HARINI SCHULER LIPASE 6 [facility] INC INC THER 37245 HARINI SCHULER PROPH/DX 6 [facility] NJX EA INC INC SEQL IV PUSH SBST/[place] [address] HARINI HARINI INFUSION 6 [facility] THER INC INC PROPH ADDL SEQUENTIA L TO 1 HR INJECTION J2405 HARINI SCHULER 6 [facility] ONDANSETR INC INC ON HCL [place] 1 [place] [address] HARINI SCHULER INFUSION 6 [facility] THERAPY/P INC INC ROPHYLAXI S /DX 1ST TO 1 HR ECG 40515 HARINI HARINI ROUTINE 6 [facility] ECG INC INC W/LEAST 12 LDS TRCG ONLY W/O I&[place] [address] [facility] ABDOMEN & 6 MEDICAL MEDICAL PELVIS IMAGING IMAGING W/O ASS ASS CONTRAST MATERIAL CV STRS 13769 [facility] FALLU TST 6 PHYSICIAN EDIN XERS&/OR S GROUP RX CONT ECG W/O I&R CV STRS 18389 HARINI SCHULER TST 6 [facility] XERS&/OR INC INC RX CONT ECG TRCG ONLY INJECTION J2785 HARINI SCHULER 6 [facility] REGADENOS INC INC ON 0.1 MG ECHO 97029 HARINI HARINI TTHRC R-T 6 [facility] 2D INC INC W/WOM-MOD E COMPL SPEC&COLR D TECHNETIU A9500 HARINI SCHULER M TC-99M 6 [facility] SESTAMIBI INC INC DX PER STUDY DOSE MYOCARDIA 62867 HARINI SCHULER L SPECT 6 [facility] [place] [address] [place] TRANSVAGI 6 MEDICAL GARETH NAL IMAGING ASS RADEX ABD 47542 HARINI SCHULER COMPL 6 [facility] AQT ABD INC INC W/S/E/D VIEWS 1 VIEW CH ECG 44080 HARINI SCHULER ROUTINE 5 [facility] ECG INC INC W/LEAST 12 LDS TRCG ONLY W/O I&R US BREAST 60330 [place] [facility] [facility] UNI REAL 5 MEDICAL TIME IMAGING WITH ASS IMAGE LIMITED US BREAST 37473 HARINI SCHULER UNI REAL 5 [facility] TIME INC INC WITH IMAGE COMPLETE BLOOD 70747 HARINI SCHULER COUNT 5 [facility] COMPLETE INC INC AUTO&AUTO DIFRNTL WBC COMPREHEN 30702 HARINI SCHULER SIVE 5 [facility] [place] [address] HARINI SCHULER AMYLASE 5 [facility] INC INC COLLECTIO 41782 HARINI SCHULER N VENOUS 5 [facility] [place] [address] HARINI SCHULER LIPASE 5 [facility] INC INC ECG 87414 HARINI SCHULER ROUTINE 5 [facility] ECG INC INC W/LEAST 12 LDS TRCG ONLY W/O I&[place] [address] [place] ALL HEAD/BRAI 5 MEDICAL N W/[place] [address] [facility], PICKLESIM SURG 5 [facility] GROSS&KARLA ROSCOPIC EXAM BIOPSY 54295 HARINI SCHULER BREAST 5 [facility] OPEN INC INC INCISIONA L ECG 73657 HARINI SCHULER ROUTINE 5 [facility] ECG INC INC W/LEAST 12 LDS TRCG ONLY W/O I&R ANES 75321 [facility] LEDESMA BENJAMIN INTEG 5 ANESTH MUSC & OF THE NRV HEAD BLUE NECK&[place] [address] HARINI SCHULER INFUSION 5 [facility] THERAPY INC INC PROPHYLAX IS/DX EA HOUR PRESSURIZ 90675 HARINI SCHULER ED/NONPRE 5 [facility] SSURIZED [place] [address] HARINI SCHULER INFUSION 5 [facility] THERAPY/P INC INC ROPHYLAXI S /DX 1ST TO 1 HR ECG 48985 HARINI SPANN ROUTINE 5 [facility] W/LEAST P 12 LDS I&R ONLY THERAPEUT 54350 HARINI SCHULER IC 5 [facility] INJECTION INC INC IV PUSH EACH NEW DRUG INJECTION J0131 HARINI SCHULER 5 [facility] ACETAMINO INC INC PHEN 10 MG CYTP FLU 13851 P&C LABSMELVINA/BR 5 [facility] ER JR GIULIA USHINGS XCPT C/V SMRS INTERPJ US BREAST 17916 [facility] REAL 5 MEDICAL GARETH TIME IMAGING WITH ASS IMAGE LIMITED US BREAST 59376 HARINI SCHULER UNI REAL 5 [facility] [place] [address] [facility] ABDOMEN & 5 RADIOLOGY LD IV ALL PELVIS W/O CONTRAST MATERIAL RADIOLOGI 18459 [facility] C EXAM 5 DERIC OLGA LIDIA CHEST 2 EMERGENCY VIEWS PHYS FRONTAL&L ATERAL ECG 02021 [facility] CELLAROSI ROUTINE 5 DERIC - YORBA ECG EMERGENCY PAT W/LEAST PHYS 12 LDS I&R ONLY FIBRIN 62511 [facility] CUR[facility]AN DGRADJ [address] [place] [address] D-DIMER QUANTITAT MARYLOU ECG 72640 [facility] ROUTINE [address] [place] [address] W/LEAST 12 LDS TRCG ONLY W/O I&R BLOOD 36182 [facility] COUNT [address] [place] [address] AUTO&AUTO DIFRNTL WBC NATRIURET 65554 [facility] [place] IC [address] [place] [address] [place] [address] [facility] TROPONIN [address] [place] [address] MARYLOU COMPREHEN 98533 [facility] SIVE [address] [place] [address] PANEL COLLECTIO 06715 [facility] N VENOUS [address] [place] [address] VENIPUNCT URE CYTP FLU 30340 P&C LABSARTEMIOGS/BR 5 [facility] MARGARET USHINGS XCPT C/V SMRS INTERPJ DIAGNOSTI G0204 [place] [facility] C 5 MEDICAL GARETH MAMMOGRAP IMAGING HY INCL ASS CAD WHEN PERF; BILAT LEVEL III 02308 P&[facility] LABSARTEMIO SURG 5 [facility] MARGARET PATHOLOGY GROSS&KARLA ROSCOPIC EXAM EXCISION 76153 HARINI SCHULER HIDRADENI 5 [facility] TIS INC INC AXILLARY COMPLEX REPAIR ANES 47458 [facility] INTEG 5 ANESTH MAR EXTREMITI OF THE ES ANT BLUE TRUNK & PERINEUM NOS ECG 68228 HARINIHARIS SCHULER ROUTINE 5 [facility] ECG INC INC W/LEAST 12 LDS TRCG ONLY W/O I&R ECG 58155 CARDIOVAS DIRK ROUTINE 5 CULAR MAT ECG CONSULTAN W/LEAST TS O 12 LDS I&R ONLY LOCM Q9967 HARINI KLINEON 300-399 5 [facility] MG/ML INC INC IODINE CONCENTRA TION PER ML RADIOLOGI 59643 [place] [facility] C EXAM 5 MEDICAL GARETH CHEST 2 IMAGING VIEWS ASS FRONTAL&[place] [address] [place] ANGIOGRAP 5 MEDICAL GARETH HY HEAD IMAGING W/CONTRAS ASS T/NONCONT RAST BLOOD 38595 HARINI SCHULER COUNT 5 [facility] COMPLETE INC INC AUTO&AUTO DIFRNTL WBC NATRIURET 61693 HARINI SCHULER IC 5 [facility] PEPTIDE INC INC COLLECTIO 12941 HARINI SCHULER N VENOUS 5 [facility] BLOOD INC INC VENIPUNCT URE COMPREHEN 58376 HARINI SCHULER SIVE 5 [facility] [place] [address] HARINI SCHULER THYROXINE 5 [facility] TOTAL INC INC LIPID 12409 HARINI SCHULER PANEL 5 [facility] [place] [address] HARINI SCHULER THYROID 5 [facility] STIMULATI INC INC NG HORMONE TSH ECHO 80285 HARINI SCHULER TTHRC R-T 5 [facility] 2D INC INC W/WOM-MOD E COMPL SPEC&COLR D BILIRUBIN 91338 HARINI SCHULER DIRECT 5 [facility] INC INC CV STRS 15693 CARDIOVAS DIRK TST 5 CULAR MAT XERS&/OR CONSULTAN RX CONT TS O ECG I&R ONLY CV STRS 91971 HARINI SCHULER TST 5 [facility] XERS&/OR INC INC RX CONT ECG TRCG ONLY CV STRS 93846 [facility] TST 5 PHYSICIAN EDIN XERS&/OR S GROUP RX CONT ECG W/O I&R GAS 20331 HARINI SCHULER DILUT/WAS 5 [facility] HOUT LUNG INC INC VOL W/WO DISTRIB VENT&[place] [address] HARINI SCHULER DIFFUSING 5 [facility] CAPACITY INC INC BRNCDILAT 39342 HARINI BRADSHAW JR RSPSE 5 [facility] PRE&POST- P BRNCDILAT ADMN ECG 09248 CARDIOVAS DIRK ROUTINE 5 CULAR MAT ECG CONSULTAN W/LEAST TS O 12 LDS I&R ONLY ECG 31618 HARINI SCHULER ROUTINE 5 [facility] ECG INC INC W/LEAST 12 LDS TRCG ONLY W/O I&R THERAPEUT 26132 [facility] IC 4 PHYSICIAN KARLA PROPHYLAC S GROUP TIC/DX INJECTION SUBQ/IM INJECTION J1040 [facility] 4 PHYSICIAN KARLA METHYLPRE S GROUP DNISOLONE ACETATE 80 MG OPHTH 31040 [facility] 4 GRE GRE XM&EVAL COMPRE NEW PT 1/> VST DOP 87526 [facility] ECHOCARD 4 NE [facility] COLOR MEDICAL FLOW G VELOCITY MAPPING ECHO 54862 [facility] TRANSESOP 4 NE [facility] HAG R-T MEDICAL 2D W/PRB G IMG ACQUISJ I&[place] [address] [facility] 2 VIEWS 4 MEDICAL SHREYA FRNT & IMAGING LAT ASS APICAL LORDOTIC PX DOPPLER 68573 [facility] ECHOCARD 4 NE [facility] EDIN PULSE MEDICAL WAVE G W/SPECTRA L DISPLAY RADIOLOGI 52764 [facility] C EXAM 4 MEDICAL SHREYA CHEST 2 IMAGING VIEWS ASS FRONTAL&L ATERAL ECHO 68265 HARINI SCHULER TTHRC R-T 4 [facility] 2D INC INC W/WOM-MOD E COMPL SPEC&COLR D CREATINE 65118 HARINI SCHULER KINASE 4 [facility] TOTAL INC INC BLOOD 06157 HARINI SCHULER COUNT 4 [facility] COMPLETE INC INC AUTO&[place] [address] HARINI SCHULER TROPONIN 4 [facility] QUANTITAT INC INC MARYLOU CREATINE 65002 HARINI SCHULER KINASE MB 4 [facility] FRACTION INC INC ONLY COMPREHEN 53511 HARINI SCHULER SIVE 4 [facility] METABOLIC INC INC PANEL CUL BACT 65676 HARINI SCHULER XCPT 4 [facility] URINE INC INC BLOOD/STO OL AEROBIC ISOL CULTURE 97735 HARINI SCHULER FNGI 4 [facility] MOLD/YEAS INC INC T PRSMPTV OTH XCPT BLOOD INCISION 54421 [facility] REMOVAL 4 [facility] BODY SUBQ TISS SIMPLE BLOOD 73627 [facility] COUNT 4 [facility] AUTO&AUTO DIFRNTL WBC CYTP C/V 99572 PICKLESIM PICKLESIM AUTO THIN 4 ER JR GIULIA ER JR GIULIA [place] [address] KATTY ALANIZ ABDOMEN & 4 OLGA LIDIA OLGA LIDIA PELVIS W/O CONTRAST MATERIAL RADIOLOGI 71997 KATTY ALANIZ C EXAM 4 OLGA LIDIA OLGA LIDIA CHEST 2 VIEWS FRONTAL&L ATERAL RADIOLOGI 46570 SWINE[facility] SWINEY C 4 PAT PAT EXAMINATI ON CHEST SINGLE VIEW FRONTAL ECG 80051 SWINE[facility] SWINEY ROUTINE 4 PAT PAT ECG W/LEAST 12 LDS I&R ONLY RADIOLOGI 71079 SAVANNA SAVANNA C 4 RHO RHO EXAMINAT[place] [address] SAVANNA SAVANNA ABDOMEN & 4 RHO RHO PELVIS W/CONTRAS T MATERIAL OSTEOPATH 29850 PRIMARY YEMI, IC 9 HEALTH MARY M MANIPULAT ASSOCIATE MARYLOU TX S PSC 1-2 BODY REGIONS ECG 01505 CARDIOLOG JOVEL, ROUTINE 9 Y ALAN A ECG ASSOCIATE W/LEAST S OF 12 LDS [place] I&R ONLY RADIOLOGI 52785 [facility] Konstantin WAITE EXAM 9 RADIOLOGY T CHEST 2 VIEWS FRONTAL&[place] [address] [facility] [place] EVIN, HEAD/BRAI 9 RADIOLOGY SIMONA D N W/O CONTRAST MATERIAL ECG 02254 PRIMARY YEMI, ROUTINE 9 [facility] [place] M ECG ASSOCIATE W/LEAST S PSC 12 LDS W/I&R ECG 99157 CARDIOLOG JOVEL, ROUTINE 9 Y ALAN A ECG ASSOCIATE W/LEAST S OF 12 LDS [place] I&R ONLY ECG 10173 [facility], ROUTINE 9 DERIC ASIF C ECG EMERGENCY W/LEAST PHYS INC 12 LDS I&R ONLY FIBRIN 86928 [facility] CUR[facility]AN DGRADJ 9 [facility] [place]-DIM[place] QU[place] [address] [facility] INFUSION 9 [facility] INITIAL 31 MIN-1 [place] [address] [facility] INFUSION 9 [facility] EACH ADDITIONA L HOUR CREATINE 67209 [facility] 9 [facility] ECG 34792 [facility] ROUTINE 9 [facility] W/LEAST 12 LDS TRCG ONLY W/O I&R RADIOLOGI 08293 [facility] Wander MARROQUIN 9 RADIOLOGY JEANA EXAMINATI ON CHEST SINGLE VIEW FRONTAL GROUND A0425 [facility] 9 MAGDY CURRAN PER [facility] [place] [address] [facility] CUR[facility]AN TROPONIN 9 [facility] MARYLOU BLOOD 15245 [facility] CUR[facility]AN COUNT [address] [place] [address] AUTO&AUTO DIFRNTL WBC COLLECTIO 56432 MAGDY CURRAN N VENOUS 9 [facility] VENIPUNCT URE BASIC 57474 [facility]ELEN[facility] METABOLIC 9 [facility] CALCIUM TOTAL AMB A0427 [facility] SERVICE 9 [facility] EMERGENCY EMS EMS TRANSPORT LEVEL 1 [place] [address] [facility] THYROID 9 [facility] [place] [address] [facility] [place] SAVANNA, ABDOMEN 8 RADIOLOGY FORREST G W/CONTRAS T MATERIAL CT PELVIS 90157 [facility] [place] SAVANNA, 8 RADIOLOGY FORREST G W/CONTRAS T MATERIAL ANES 55916 [place] DEPA, UPPER GI 8 ANESTHESI MARTINEZ ENDOSCOPY A GROUP PROXIMAL PSC TO DUODENUM ESOPHAGOG 19846 FU- TANK- ASTRODUOD 8 ZACHARY, ZACHARY, ENOSCOPY ROSLYN MCGOWAN TRANSORAL DIAGNOSTI C HEPATBL 85960 [facility] DUX SYS 8 [facility] [place] [address] [facility] [place] ZEINAB, TRACT 8 RADIOLOGY JEREMY Purcell UPPER W/WO DELAYED IMAGES W/O KUB RADEX 14098 [facility] UPPER GI 8 [facility] W/[facility] GLUCAGON/ DELAY IMGES W/O KUB SEDIMENTA 31054 [facility] TION RATE 8 [facility] NON-AUTOM ATED [address]EMOGLOBI [address] [facility] MIQUEL A1C BLOOD 35615 [facility] COUNT 8 [facility] AUTO&AUTO DIFRNTL WBC COMPUTER- 74630 [facility] AIDED [address] [place] [address] HOSPITAL SCREENING MAMMOGRAP HY SCREENING [address] MAMMOGRAP [facility] HY BILATERAL BASIC 63150 [facility] METABOLIC [address] [place] [address] HOSPITAL CALCIUM TOTAL COLLECTIO 98445 [facility] VENOUS 8 [facility] VENIPUNCT URE LIPID 14242 [facility] PANEL [address] [place] [address] [place] [address] [facility] ABDOMINAL 8 [facility] TIME W/[place] [address] [facility] THYROID 8 [facility] NG HORMONE TSH HEPATIC 78404 FRESNO MAGDY FUNCTION 8 [facility] DOPPLER 00320 CARDIOLOG JOVEL, ECHOCARD 8 Y ALAN A PULSE ASSOCIATE WAVE S OF W/SPECTRA [place] L DISPLAY DOP 01367 CARDIOLOG JOVEL, ECHOCARD 8 Y ALAN A COLOR ASSOCIATE FLOW S OF VELOCITY [place] MAPPING ECHO 93260 CARDIOLOG JOVEL, TRANSTHOR 8 Y ALAN A AC R-T 2D ASSOCIATE W/WO S OF M-MODE [place] REC COMP Encounters Encounter Start End Date Code Location Performer Type Date OFFICE 19318 [facility] RIGO OUTJULIA 7 7 PHYSICIAN T VISIT S GROUP 15 MINUTES EMERGENCY 71686 [facility] T VISIT HIGH/URGE NT SEVERITY EMERGENCY 77240 SELENA [facility] DEPT 7 7 PHYSICIAN VISIT S, [facility] HIGH SEVERITY& THREAT FUN HOSPITAL HARINI - 7 7 [facility] OUTPATIEN [facility] HARINI - 7 7 [facility]PATI[facility] OFFICE 25143 [facility] JENNIFER OUTJULIA 7 7 PHYSICIAN T VISIT S GROUP 25 MINUTES EMERGENCY 68805 [facility] 7 [facility] T VISIT LOW/MODER SEVERITY EMERGENCY 50582 SELENA FORD 7 7 PHYSICIAN JR DEPARTMEN S, [facility] T VISIT HIGH/URGE NT SEVERITY HOSPITAL HARINI - 7 7 [facility] OUTPATIEN [facility] HARINI Plasencia 7 [facility] OUTPATIEN [facility] EMERGENCY 37307 SELENA [facility] DEPT 7 7 PHYSICIAN VISIT S, PLLC HIGH SEVERITY& THREAT FUNCJ EMERGENCY 88435 HARINI 7 7 [facility] DEPARTMEN INC T VISIT HIGH/URGE NT SEVERITY HOSPITAL HARINI - 6 6 [facility] OUTPATIEN INC T EMERGENCY 36081 HARINI 6 6 [facility] DEPARTMEN [facility] T VISIT LIMITED/M INOR PROB EMERGENCY 28318 SELENA LIZ 6 6 PHYSICIAN DEPARTMEN S, PLLC T VISIT LOW/MODER SEVERITY OFFICE 14275 [facility] HARPEL OUTPATIEN 6 6 PHYSICIAN ISH T VISIT S GROUP 15 MINUTES HOSPITAL HARINI - 6 6 [facility] OUTPATIEN INC T EMERGENCY 99119 [facility] SWINEY 6 6 DERIC PAT DEPARTMEN EMERGENCY T VISIT PHYS MODERATE SEVERITY EMERGENCY 54055 SELENA MULLINS 6 6 PHYSICIAN U SHREYA [facility] S, [facility] T VISIT MODERATE SEVERITY EMERGENCY 40118 [facility] SWINEY DEPT 6 6 DERIC PAT VISIT EMERGENCY HIGH PHYSI SEVERITY& THREAT [facility] BOJOSÉ MIGUELON - 6 6 [facility] HOSPITAL OFFICE 44150 [facility] KAMERON TOD OUTPATIEN 6 6 PHYSICIAN T VISIT S GROUP 10 MINUTES OFFICE 94946 [facility] HARPEL OUTPATIEN 6 6 PHYSICIAN ISH T VISIT S GROUP 15 MINUTES OFFICE 83432 [facility] KAMERON TOD OUTPATIEN 6 6 PHYSICIAN T VISIT S GROUP 10 MINUTES HOSPITAL HARINI - 6 6 [facility] OUTPATIEN INC T OFFICE 16843 [facility] KAMERON TOD OUTPATIEN 6 6 PHYSICIAN T VISIT S GROUP 10 MINUTES OFFICE 71045 ELIO RODRIGUEZ OUTPATIEN 6 6 JENNIFER ESQUIVEL ISH T VISIT 15 MINUTES HOSPITAL HARINI - 6 6 [facility] OUTPATIEN INC T HOSPITAL HARINI - 6 6 [facility] OUTPATIEN INC T OFFICE 96974 [facility] HARPEL OUTPATIEN 6 6 PHYSICIAN ISH T VISIT S GROUP 25 MINUTES HOSPITAL HARINI - 6 6 [facility] OUTPATIEN INC T OFFICE 99939 [facility] HAR[facility]L OUTPATIEN 6 6 PHYSICIAN ISH T VISIT S GROUP 25 MINUTES OFFICE 04065 ELIO RODRIGUEZ OUTPATIEN 6 6 JENNIFER DENG T VISIT 25 MINUTES HOSPITAL HARINI - 6 6 [facility] OUTPATIEN INC T INITIAL 05444 ELIO RODRIGUEZ PREVENTIV 6 6 JENNIFER DENG E MEDICINE NEW PATIENT [id number] EMERGENCY 58663 SELENA HEIN 6 6 PHYSICIAN [facility] DEPARTMEN S, [facility] T VISIT HIGH/URGE NT SEVERITY HOSPITAL HARINI - 6 6 [facility] OUTPATIEN INC T EMERGENCY 01959 HARINI 6 6 [facility] DEPARTMEN INC T VISIT MODERATE SEVERITY OFFICE 64910 [facility] DIRK OUTPATIEN 6 6 PHYSICIAN MAT T VISIT S GROUP 25 MINUTES HOSPITAL HARINI - 6 6 [facility] OUTPATIEN INC T HOSPITAL HARINI - 6 6 [facility] OUTPATIEN INC T OFFICE 04128 [facility] KAMERON TOD OUTPATIEN 6 6 PHYSICIAN T VISIT S GROUP 15 MINUTES EMERGENCY 08444 SELENA MULLINS DEPT 6 6 PHYSICIAN U SHREYA VISIT [facility] HIGH SEVERITY& THREAT [facility] - 6 6 [facility] INC T EMERGENCY 72458 [facility] 6 6 [facility] DEPARTMEN INC T VISIT HIGH/URGE NT SEVERITY [facility] - 6 6 [facility] OUT[facility]EN [facility] T OFFICE 00466 [facility] TOD OUTPATIEN 6 6 PHYSICIAN T VISIT S GROUP 15 MINUTES [facility]OSP[facility] - 6 6 [facility] OUTPATIEN [facility] - 5 5 [facility] OUTPATIEN [facility] T OFFICE 71662 [facility] TOD OUTPATIEN 5 5 PHYSICIAN T VISIT S GROUP 15 MINUTES [facility] - 5 5 [facility] - 5 5 [facility] T OFFICE 29141 [facility] TOD OUTPATIEN 5 5 PHYSICIAN T VISIT S GROUP 15 MINUTES [facility] - 5 5 [facility] OUTPATIEN [facility] T OFFICE 44827 [facility] TOD OUTPATIEN 5 5 PHYSICIAN T VISIT S GROUP 15 MINUTES [facility]OSP[facility] - 5 5 [facility] OUTPATIEN [facility] - 5 5 [facility] OUTPATIEN [facility] T OFFICE 33440 [facility] TOD OUTPATIEN 5 5 PHYSICIAN T [facility]ISIT S GROUP 15 MINUTES [facility]OSP[facility] - 5 5 [facility] OUTPAT[facility]EN [facility] 85421 [facility] DEPT 5 5 DERIC O VISIT EMERGENCY HIGH PHYS SEVERITY& THREAT FUN OFFICE 88313 [facility] TOD CONSULTAT 5 5 PHYSICIAN ION S GROUP NEW/ESTAB PATIENT 30 MIN EMERGENCY 67101 [facility] 5 5 DERIC [facility] EMERGENCY T VISIT PHYS HIGH/URGE NT [facility] MAGDY - 5 5 [facility] T EMERGENCY 04447 [facility] 5 5 [facility] HIGH SEVERITY& THREAT FUNJ EMERGENCY 11163 [facility] CELLAROSI 5 5 DERIC - YORBA DEPARTMEN EMERGENCY PAT T VISIT PHYS HIGH/URGE NT SEVERITY OFFICE 87118 [facility] ANGEL LUIS OUTPATIEN 5 5 PHYSICIAN KARLA T VISIT S GROUP 10 MINUTES OFFICE 20031 [facility] ANGEL LUIS OUTPATIEN 5 5 PHYSICIAN KARLA T VISIT S GROUP 10 MINUTES [facility]OSP[facility] - 5 5 [facility] INC T OFFICE 07702 [facility] ANGEL LUIS OUTPATIEN 5 5 PHYSICIAN KARLA T VISIT S GROUP 15 MINUTES [facility] - 5 5 [facility] INC T OFFICE 38542 [facility] KAMER[facility] TOD CONSULTAT 5 5 PHYSICIAN ION S GROUP NEW/ESTAB PATIENT 40 MIN OFFICE 61854 [facility] ANGEL LUIS OUTPATIEN 5 5 PHYSICIAN KARLA T VISIT S GROUP 15 MINUTES OFFICE 83287 [facility] OUT[facility] 5 5 CULAR MAT T VISIT CONSULTAN 15 TS O MINUTES [facility]OS[facility] - 5 5 [facility] - 5 5 [facility]PATIEN [facility] - 5 5 [facility] - 5 5 [facility] T OFFICE 10463 [facility]K OUTPATIEN 5 5 CULAR MAT T NEW 60 CONSULTAN MINUTES TS O [facility]OSP[facility] 5 5 [facility] 35746 [facility] FRANCOIS 4 4 DERIC [facility] EMERGENCY T VISIT PHYS MODERATE SEVERITY OFFICE 54104 [facility] ANGEL LUIS OUTPATIEN 4 4 PHYSICIAN KARLA T VISIT S GROUP 15 MINUTES EMERGENCY 75517 [facility] BAB 4 4 DERIC [facility] EMERGENCY T VISIT PHYS MODERATE SEVERITY OFFICE 76544 [facility] ANGEL LUIS OUTPATIEN 4 4 PHYSICIAN KARLA T VISIT S GROUP 10 MINUTES [facility]OSP[facility] - 4 4 [facility] OUTPATIEN INC T HOSPITAL [facility] 4 4 [facility] OUTPATIEN [facility] T OFFICE 25385 ANGEL ORTIZ OUTPATIEN 4 4 EDINSilvia JANGZ T VISIT 25 MINUTES [facility]OSPITAL [facility] - 4 4 [facility] OUTPATIEN [facility] T OFFICE 96623 ANGEL LUIS HEIN OUTPATIEN 4 4 KARLA KARLA T VISIT 25 MINUTES HOSPITAL HARINI - 4 4 [facility] OUTPATIEN [facility] T HOSPITAL JOLEENON - 4 4 [facility] T EMERGENCY [id number] JOLEENON 4 4 [facility] HOSPITAL T VISIT MODERATE SEVERITY EMERGENCY 47430 SWINEY SWINEY 4 4 PAT PAT DEPARTMEN T VISIT HIGH/URGE NT SEVERITY OFFICE 88964 TORI VALLE OUTPATIEN 4 4 MALCOM MALCOM T NEW 45 MINUTES OFFICE 91586 FILIBERTO DE LOS SANTOS JR OUTPATIEN 4 4 YANNI YANNI T NEW 30 MINUTES EMERGENCY 69731 GARETT II GARETT II 4 4 THO O DEPARTMEN T VISIT HIGH/URGE NT SEVERITY EMERGENCY 59432 SWINEY SWINEY DEPT 4 4 PAT PAT VISIT HIGH SEVERITY& THREAT FUNCJ OFFICE 96149 BOO HADDAD OUTPATIEN 9 9 , KAYDENKAYDEN Purcell T VISIT 15 MINUTES OFFICE [id number] SCHULSTAD SCHULSTAD CONSULTAT 9 9 , KAYDEN CHADL ION NEW/ESTAB PATIENT 60 MIN OFFICE 97522 PRIMARY YEMI, OUTPATIEN 9 9 [facility] MARY Jernigan T VISIT ASSOCIATE 15 S PSC MINUTES OFFICE 82003 PRIMARY MIRI BRAGGEN 9 9 [facility] MARY T VISIT ASSOCIATE 15 S PSC MINUTES EMERGENCY 13799 [facility] DEPT 9 9 DERIC VISIT EMERGENCY HIGH PHYS INC SEVERITY& THREAT FUNCJ OFFICE 83535 PRIMARY KARI BRAGGPATIEN 9 9 [facility] MARY T VISIT ASSOCIATE 15 S PSC MINUTES OFFICE 81761 PRIMARY MIRI BRAGGEN 9 9 [facility] MARY T VISIT ASSOCIATE 25 S PSC MINUTES EMERGENCY 78370 [facility] 9 [facility] VISIT MODERATE SEVERITY HOSPITAL FRESNO - 9 9 [facility] T EMERGENCY 03778 [facility] DEPT 9 9 DERIC ASIF C VISIT EMERGENCY HIGH PHYS INC SEVERITY& THREAT FUNCJ OFFICE 35566 PRIMARY KARI BRAGGPATIEN 8 8 [facility] MARY T VISIT ASSOCIATE 15 S PSC MINUTES [facility] T OFFICE 66066 PRIMARY KARI BRAGGPATIEN 8 8 [facility] MARY T VISIT ASSOCIATE 15 S PSC MINUTES OFFICE 99472 ALLRAN ALLRAN OUTPATIEN 8 8 JR TAHIRA, T VISIT [facility] 15 MINUTES OFFICE 25790 PRIMARY YEMI, OUTPATIEN 8 8 [facility] MARY T VISIT ASSOCIATE 25 S PSC MINUTES [facility] 8 [facility] OFFICE 56352 ALLRAN ALLRAN CONSULTAT 8 8 JR TAHIRA, ION [facility] NEW/ESTAB PATIENT 60 MIN OFFICE 46049 PRIMARY YEMI KARIJULIA 8 8 [facility] VISIT ASSOCIATE 15 S PSC MINUTES [facility] 8 8 [facility] T OFFICE 28216 PRIMARY DARWIN BRAGG 8 8 [facility] VISIT ASSOCIATE 25 S PSC MINUTES OFFICE 86528 [facility] 8 [facility] NEW 45 ASSOCIATE MINUTES S PSC
--- OUTSIDE RECORDS SUMMARY | 2016-12-29 16:49 | External Medical Summary Rpt | CCD ---
Demographics Preferred Language Belgian Marital Status Unknown Latter-Day Affiliation Unknown Race Unknown Ethnic Group Unknown Author Author , AMRITA CROWE Address Unknown Phone Immunization No patient found.
--- OUTSIDE RECORDS SUMMARY | 2016-12-29 16:49 | External Medical Summary Rpt | CCD ---
Demographics Preferred Language [place] Marital Status Unknown Tenriism Affiliation Unknown Race Unknown Ethnic Group Unknown Author Author , AMRITA CROWE Address Unknown Phone Immunization No patient found.
== END 2016-12-24 00:30 | disposition home or self-care (01) ==
LOC: ER 20:38
PROVIDERS: Emergency Medicine
DX: M54.42 Lumbago with sciatica, left side (principal); M54.41 Lumbago with sciatica, right side; I10 Essential (primary) hypertension; Z88.6 Allergy status to analgesic agent; E78.5 Hyperlipidemia, unspecified; J44.9 Chronic obstructive pulmonary disease, unspecified; K21.9 Gastro-esophageal reflux disease without esophagitis; F41.8 Other specified anxiety disorders; F17.210 Nicotine dependence, cigarettes, uncomplicated

== ENCOUNTER 2017-02-19 19:20 | Emergency (ER) | payer MEDICAID ==
[~2017-02-19] VITALS: Ht 175.3 cm; Wt 119.8 kg
[~2017-02-19 19:20] MED LIST changes: +FLEXERIL10 MG PO
--- OUTSIDE RECORDS SUMMARY | 2017-02-19 19:46 | External Medical Summary Rpt | CCD ---
Demographics Preferred Language Urdu Marital Status Unknown Yazidism Affiliation Unknown Race Unknown Ethnic Group Unknown Author Author AMRITA Address Unknown Phone Purpose Continuity of Care Document - through 2016
--- OUTSIDE RECORDS SUMMARY | 2017-02-19 19:46 | External Medical Summary Rpt | CCD ---
Author Author , AMRITA Organization AMRITA Address Unknown Phone [email or web address] Purpose Continuity of Care Document - 12-23-2016 through 2016 Problems Code Diagnosis DOS Provider Status E86.0 DEHYDRATION F41.9 ANXIETY DISORDER, UNSPECIFIED G62.9 POLYNEUROPA THY, UNSPECIFIED K52.9 NONINFECTIV E GASTROENTER ITIS AND COLITIS, UNSPECIFIED M51.16 INTERVERTEB RAL DISC DISORDERS W RADICULOPAT HY, LUMBAR REGION M54.5 LOW BACK PAIN R07.89 OTHER CHEST PAIN R10.13 EPIGASTRIC PAIN R10.31 RIGHT LOWER QUADRANT PAIN R10.9 UNSPECIFIED ABDOMINAL PAIN S33.5XXA SPRAIN OF LIGAMENTS OF LUMBAR SPINE, INITIAL ENCOUNTER S80.10XA CONTUSION OF UNSPECIFIED LOWER LEG, INITIAL ENCOUNTER Results Labs Lab Lab Date Result Refere Interp Status Commen Order Detail nces retati t Range on Urinalysis with microscopy (12-23-2016 23:40) Urine SL CLEAR complet appeara 017 CLOUDY ed nce 23:40 SL determi CLOUDY nation L Amorpho 2+ 2+ L NONE complet us 017 ed sedimen 23:40 t detecti on in urine se Urine NEGATIV NEG complet total 017 E ed bilirub 23:40 NEGATIV in E L detecti on by test Urine NEGATIV NEG complet blood 017 E ed detecti 23:40 NEGATIV on E L Urine YELLOW YELLOW complet color 017 YELLOW ed 23:40 L Glucose = NEG complet ur 017 NEGATIV ed test 23:40 E strip Urine NEGATIV NEG complet ketones 017 E ed 23:40 NEGATIV detecti E L on by mg/dL automat ed chen Mucus NEGATIV NEG complet detecti 017 E ed on in 23:40 NEGATIV urine E L sedimen t by lig Mucus 4+ 4+ L OCC complet detecti 017 ed on in 23:40 urine sedimen t by lig Urine NEGATIV NEG complet nitrite 017 E ed 23:40 NEGATIV detecti E L on by test strip Urine = 6.0 5.0-8.5 complet pH 017 ed 23:40 Urine = NEG complet protein 017 NEGATIV ed 23:40 E mg/dL measure ment by automat ed t Urine = 1.025 1.005-1 complet specifi 017 .030 ed c 23:40 gravity measure ment [place] 10-20 0-5 complet s 017 10-20 L ed epithel 23:40 #/hpf ial cells detecti on in u Urine 0.2 0.2 NEG complet urobili 017 L ed nogen 23:40 E.U./dL detecti on by test str Urine 3 - 5 O complet leukocy 017 wbc/hpf ed chen 23:40 count (number /volume ) CBC w auto diff (12-23-2016 20:55) Automat = 0.0 0-0.2 complet ed 017 K/MM3 ed blood 20:55 basophi l count (count/ vo Baso % = 0.3 % 0.1-2.0 complet 017 ed 20:55 Automat = 0.2 0.0-0.4 complet ed 017 K/mm3 ed blood 20:55 eosinop hil count Automat = 2.6 % 0.1-12. complet ed 017 0 ed blood 20:55 eosinop hils/10 0 leukocy t Blood = 5.5 1.8-7.8 complet granulo 017 K/mm3 ed cytes 20:55 automat ed count (numb Granulo = 67.5 37.0-80 complet cyte 017 % .0 ed percent 20:55 age Blood = 40.6 37.0-47 complet hematoc 017 % .0 ed rit 20:55 (volume fractio n) Blood = 12.9 12.2-16 complet hemoglo 017 g/dL .2 ed bin 20:55 measure ment (mass/v olum Absolut = 2.0 0.7-4.5 complet e 017 K/mm3 ed lymphoc 20:55 yte count Lymphoc = 25.3 10-50.0 complet yte 017 % ed count, 20:55 blood, automat ed Mean = 28.9 27-31.2 complet corpusc 017 pg ed ular 20:55 hemoglo bin (MCH) determ Automat = 31.7 31.8-35 complet ed 017 g/dl .4 ed erythro 20:55 cyte mean corpusc ular h Automat = 91.3 82.2-97 complet ed 017 fl .8 ed erythro 20:55 cyte mean corpusc ular v Absolut = 0.4 0.1-1.0 complet e 017 K/mm3 ed monocyt 20:55 e count [place] % = 4.3 % 1.7-9.3 complet 017 ed 20:55 Automat = 9.0 7.4-10. complet ed 017 fl 4 ed blood 20:55 platele t mean volume taylor Blood = 169 142-424 complet platele 017 K/mm3 ed t count 20:55 Red = 4.45 4.2-5.4 complet blood 017 M/mm3 ed cell 20:55 count Automat = 13.8 11.5-17 complet ed 017 % .5 ed erythro 20:55 cyte distrib ution width Blood = 8.1 4.8-10. complet leukocy 017 K/MM3 8 ed cehn 20:55 count (number /volume ) Comprehensive metabolic panel (12-23-2016 20:55) Serum = 1.0 1.1-1.8 complet or 017 ed plasma 20:55 albumin /globul in mass ra Serum = 3.3 3.4-5.0 complet or 017 gm/dL ed plasma 20:55 albumin measure ment (mas Serum = 85 46-116 complet or 017 U/L ed plasma 20:55 alkalin e phospha tase taylor Serum = 0.3 0.2-1.0 complet or 017 mg/dL ed plasma 20:55 total bilirub in measure m Serum = 19 7-18 complet or 017 mg/dL ed plasma 20:55 urea nitroge n measure men Serum = 8.5 8.5-10. complet or 017 mg/dL 1 ed plasma 20:55 calcium measure ment (mas Serum = 106 98-107 complet or 017 mmoL/L ed plasma 20:55 chlorid e measure ment (mo Carbon = 26 21.0-32 complet dioxide 017 mmoL/L .0 ed 20:55 measure ment Serum = 1.2 0.55-1. complet or 017 mg/dL 02 ed plasma 20:55 creatin ine measure ment ( Estimat = 110 50-200 complet ion of 017 ML/MIN ed creatin 20:55 ine renal clearan ce Estimat = 47 59- complet ed 017 ML/MIN ed glomeru 20:55 lar filtrat ion rate (GF Comment: REFERENCE RANGE: >60 ML/MIN/1.73 SQUARE METERS Comment: If this patient is -[place]ese, then multiply the Comment: result by 1.210. Serum = 3.3 1.3-3.2 complet globuli 017 gm/dL ed n 20:55 measure ment (mass/v olume) Serum = 158 74-106 complet or 017 mg/dL ed plasma 20:55 glucose measure ment (mas Serum = 4.0 3.5-5.1 complet potassi 017 mmoL/L ed um 20:55 measure ment Serum = 140 136-145 complet sodium 017 mmoL/L ed measure 20:55 ment Serum = 16 15-37 complet or 017 U/L ed plasma 20:55 asparta te aminotr ansfera ALT = 20 12-78 complet (SGPT) 017 U/L ed ser/sav[place] 20:55 s Protein = 6.6 6.4-8.2 complet total 017 gm/dL ed ser/savannah 20:55 s
--- OUTSIDE RECORDS SUMMARY | 2017-02-19 19:46 | External Medical Summary Rpt | CCD ---
Demographics Preferred Language Hungarian Marital Status Unknown Evangelical Affiliation Unknown Race Unknown Ethnic Group Unknown Author Author AMRITA Address Unknown Phone Purpose Continuity of Care Document - through 2016
--- OUTSIDE RECORDS SUMMARY | 2017-02-19 19:46 | External Medical Summary Rpt | CCD ---
Demographics Preferred Language Citizen Of [place] Marital Status Unknown Islam Affiliation Unknown Race Unknown Ethnic Group Unknown Author Author , AMRITA CROWE Address Unknown Phone Immunization No patient found.
--- OUTSIDE RECORDS SUMMARY | 2017-02-19 19:46 | External Medical Summary Rpt | CCD ---
Author Author , AMRITA Organization AMRITA Address Unknown Phone [email or web address] Purpose Continuity of Care Document - 12-23-2016 [...] 017 K/mm3 ed monocyt 20:55 e count [place] % = 4.3 % 1.7-9.3 complet 017 [...] 4.8-10. complet leukocy 017 K/MM3 8 ed chen 20:55 count (number /volume ) Comprehensive metabolic [...] SQUARE METERS Comment: If this patient is -Filipino, then multiply the Comment: result by 1.210. [...]
--- OUTSIDE RECORDS SUMMARY | 2017-02-19 19:46 | External Medical Summary Rpt | CCD ---
Demographics Preferred Language Belgian Marital Status Unknown Cheondoism Affiliation Unknown Race Unknown Ethnic Group Unknown Author Author , AMRITA CROWE Address Unknown Phone Immunization No patient found.
--- NOTE | 2017-02-19 20:54 | RADIOLOGY REPORT PS360 ---
FOREARM-LT Ordering Physician: Renee Summers MD Patient Age: 52 years: Female HISTORY: PAIN/SWELLING X5 DAYS, NO KNOWN INJURY TECHNIQUE: 2 view left forearm COMPARISON :None FINDINGS AP and lateral view left forearm reveal no fracture. Radius and ulna intact. The 2 views of form include the elbow and wrist which are grossly unremarkable. Specifically the lateral view of the elbow shows no joint effusion. No fracture. Radial head appears intact. Less optimal 2 views wrist unremarkable. Appears be some mild soft tissue swelling at the distal forearm most evident anteriorly... No radiopaque foreign bodies seen at the distal forearm IMPRESSION: Osseous structures intact at the left forearm. No fracture. . subtle soft tissue swelling forearm, become most evident at the distal forearm
--- NOTE | 2017-02-19 20:57 | RADIOLOGY REPORT PS360 ---
HAND-LT-3 VIEWS Ordering Physician: Renee Summers MD Patient Age: 52 years: Female HISTORY: PAIN/SWELLING X5 DAYS, NO KNOWN INJURY TECHNIQUE: 3 views left hand COMPARISON :Left forearm. FINDINGS 3 views left hand intact with no fracture nor dislocation. . Bones well mineralized. Joint spaces well-maintained. No erosions. Wrist unremarkable The ring on third finger obscures this region of the third finger but no good evidence of fracture on the multiple views here. There may be some minor swelling at the fingers. IMPRESSION: --- . Negative left hand. No fracture Only question some mild soft tissue swelling in hand and fingers
--- NOTE | 2017-02-19 21:48 | Emergency Room Report ---
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 N Clinical Suspician of Infection? N Mental Status: 1 - Regular (Normal Baseline) Sepsis Risk:Low Sepsis Risk Have you (or family members/close friends) recently traveled outside the [place]? N If Yes, where/when: Have you had exposure to infectious disease within the past month? N TB? Other? Specify: Source patient, RN notes reviewed, family, old records Exam Limitations no limitations Comment swollen lt forearm with pain with rom and crepitance- over the last few days- no trauma Cardiac Chest Pain Chest pain indicative of cardiac No Timing/Duration this evening Severity moderate ALLERGIES Coded Allergies: acetaminophen (From Darvocet-N) (Severe, [id number]/THROAT 10/06/15) propoxyphene (From Darvocet-N) (Severe, P-[id number]-XVRN/THROAT 10/06/15) oxycodone (From PERCOCET) (Intermediate, I-RASH 03/15/16) levofloxacin (I-RASH 10/06/15) Home Medications Active Scripts DICLOFENAC SODIUM (Diclofenac 50MG) 50 MG PO BID #60 TAB Prov: 06/16/16 Methocarbamol (Robaxin) 500 MG PO BID #60 TAB Prov: 06/16/16 Cyclobenzaprine Hcl (Flexeril) 10 MG PO BID #14 TAB Prov: 12/24/16 Dicyclomine Hcl (Bentyl 20mg Tab (Generic)) 20 MG PO TIDP PRN abdominal pain #12 TAB Prov: 10/24/16 Reported Medications LISINOPRIL (Lisinopril) 20 MG PO DAILY Oxybutynin Chloride (Oxybutynin Chloride ER) 10 MG PO DAILY Omeprazole (Omeprazole 40MG) 40 MG PO DAILY Furosemide (Furosemide 40MG) 40 MG PO BID ISOSORBIDE MONONITRATE (Isosorbide Mononitrate ER) 60 MG PO DAILY Estradiol 2 MG PO DAILY #30 Gabapentin (Gabapentin 600MG) 600 MG PO Q8 #90 Aspirin 81 MG PO DAILY PRAVASTATIN SODIUM (Pravastatin Sodium) 40 MG PO QHS Carvedilol 12.5 MG PO BID #60 History Medical History General CAD? No Angina: No [place]: No Hypertension? Yes Hyperlipidemia? Yes CHF? No DVT? No PE? No COPD? Yes Asthma? No Anemia? No GERD? Yes Gastric ulcers? No GI Bleed? No Hernia? Yes Thyroid Problems? No Hypothyroidism? No CVA? Yes Seizures? No Diabetes? No Renal Insuffiency? No End Stage Renal Disease? No UTI? No Stones? No BPH? No GB Disease: No Nephritic Syndrome? No Asplenia? No Hepatitis? No Sickle Cell Disease? No Arthritis? Yes Migraines? Yes Cataracts? No Glaucoma? No MRSA? No HIV? No TB? No Anxiety? Yes Depression? Yes Cancer? Yes Site: CERVICAL More? 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 Respiratory denies cough, denies shortness of breath, denies wheezing Cardiovascular denies chest pain, denies palpitations, denies syncope Gastrointestinal denies abdominal pain, denies diarrhea, denies vomiting Genitourinary denies: dysuria, frequency, hesitancy, hematuria. Musculoskeletal denies back pain, joint pain, denies joint swelling, denies neck pain Skin denies rash Psychiatric/Neurological denies headache, denies seizure Physical Exam Vital Signs Vital Signs Date Time Temp Pulse Resp B/P Pulse O2 O2 Flow FiO2 Ox Delivery Rate 02/19 1930 98.1 81 18 137/68 97 - WBC >12,000 or <4,000 or 10% bands? 2 or more SIRS Criteria Met? B/P:137/68 MAP:91 Creatinine >2.0? UA output<0.5ml/kg/hr for 2 hrs? Platelet count >100,000? Lactate >2.0mmol/1? INR >1.2 or PTT > than 60 sec? Evidence of Organ Dysfunction? Provider documented clinical suspician of infection? N Sepsis Criteria Count: 0 Sepsis Risk: Low Sepsis Risk General Appearance no apparent distress Eye Exam - bilateral eye PERRL, bilateral eye EOMI Ear, Nose, Throat normal ENT inspection Neck supple Respiratory Status No: respiratory distress. 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 No Results/Orders Current Medication Orders Sig/Konstantin Start time Last Medication Dose Route Stop Time Status Admin Acetaminophen/ 0 .STK-MED ONE 02/20 2156 DCr Codeine Phosphate PO XRAY/CT/US XRAY/CT/US XRAY forearm, hand XR interpretation by reviewed by me Xray Results no fracture seen Departure Departure Time of Disposition 2157 Disposition DC Home or Self Care(routine) Clinical Impression Primary Impression: Tenosynovitis of forearm Condition STABLE Referrals ARTHUR JOSE (Family) Patient Instructions DI for Tenosynovitis Additional Instructions wear splint and use meds and see pcp for follow up Discharge Counseling Counseled pt/family regarding diagnosis, test results, medications/RX, follow up needs Prescriptions Current Visit Scripts Prednisone (Prednisone 20MG) 20 MG PO BID #10 TAB ED Critical Care Critical Care No at 2150
--- NOTE | 2017-02-19 21:48 | Emergency Room Report ---
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 N Clinical Suspician of Infection? N Mental Status: 1 - Regular (Normal Baseline) Sepsis Risk:Low Sepsis Risk Have you (or family members/close friends) recently traveled outside the [place]? N If Yes, where/when: Have you had exposure to infectious disease within the past month? N TB? Other? Specify: Source patient, RN notes reviewed, family, old records Exam Limitations no limitations Comment swollen lt forearm with pain with rom and crepitance- over the last few days- no trauma Cardiac Chest Pain Chest pain indicative of cardiac No Timing/Duration this evening Severity moderate ALLERGIES Coded Allergies: acetaminophen (From Darvocet-N) (Severe, M-[id number]/THROAT 10/06/15) propoxyphene (From Darvocet-N) (Severe, Q-RFQUIU-VUVY/THROAT 10/06/15) oxycodone (From PERCOCET) (Intermediate, I-RASH 03/15/16) levofloxacin (I-RASH 10/06/15) Home Medications Active Scripts DICLOFENAC SODIUM (Diclofenac 50MG) 50 MG PO BID #60 TAB Prov: 06/16/16 Methocarbamol (Robaxin) 500 MG PO BID #60 TAB Prov: 06/16/16 Cyclobenzaprine Hcl (Flexeril) 10 MG PO BID #14 TAB Prov: 12/24/16 Dicyclomine Hcl (Bentyl 20mg Tab (Generic)) 20 MG PO TIDP PRN abdominal pain #12 TAB Prov: 10/24/16 Reported Medications LISINOPRIL (Lisinopril) 20 MG PO DAILY Oxybutynin Chloride (Oxybutynin Chloride ER) 10 MG PO DAILY Omeprazole (Omeprazole 40MG) 40 MG PO DAILY Furosemide (Furosemide 40MG) 40 MG PO BID ISOSORBIDE MONONITRATE (Isosorbide Mononitrate ER) 60 MG PO DAILY Estradiol 2 MG PO DAILY #30 Gabapentin (Gabapentin 600MG) 600 MG PO Q8 #90 Aspirin 81 MG PO DAILY PRAVASTATIN SODIUM (Pravastatin Sodium) 40 MG PO QHS Carvedilol 12.5 MG PO BID #60 History Medical History General CAD? No Angina: No [place]: No Hypertension? Yes Hyperlipidemia? Yes CHF? No DVT? No PE? No COPD? Yes Asthma? No Anemia? No GERD? Yes Gastric ulcers? No GI Bleed? No Hernia? Yes Thyroid Problems? No Hypothyroidism? No CVA? Yes Seizures? No Diabetes? No Renal Insuffiency? No End Stage Renal Disease? No UTI? No Stones? No BPH? No GB Disease: No Nephritic Syndrome? No Asplenia? No Hepatitis? No Sickle Cell Disease? No Arthritis? Yes Migraines? Yes Cataracts? No Glaucoma? No MRSA? No HIV? No TB? No Anxiety? Yes Depression? Yes Cancer? Yes Site: CERVICAL More? 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 Respiratory denies cough, denies shortness of breath, denies wheezing Cardiovascular denies chest pain, denies palpitations, denies syncope Gastrointestinal denies abdominal pain, denies diarrhea, denies vomiting Genitourinary denies: dysuria, frequency, hesitancy, hematuria. Musculoskeletal denies back pain, joint pain, denies joint swelling, denies neck pain Skin denies rash Psychiatric/Neurological denies headache, denies seizure Physical Exam Vital Signs Vital Signs Date Time Temp Pulse Resp B/P Pulse O2 O2 Flow FiO2 Ox Delivery Rate 02/19 1930 98.1 81 18 137/68 97 - WBC >12,000 or <4,000 or 10% bands? 2 or more SIRS Criteria Met? B/P:137/68 MAP:91 Creatinine >2.0? UA output<0.5ml/kg/hr for 2 hrs? Platelet count >100,000? Lactate >2.0mmol/1? INR >1.2 or PTT > than 60 sec? Evidence of Organ Dysfunction? Provider documented clinical suspician of infection? N Sepsis Criteria Count: 0 Sepsis Risk: Low Sepsis Risk General Appearance no apparent distress Eye Exam - bilateral eye PERRL, bilateral eye EOMI Ear, Nose, Throat normal ENT inspection Neck supple Respiratory Status No: respiratory distress. 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 No Results/Orders Current Medication Orders Sig/Konstantin Start time Last Medication Dose Route Stop Time Status Admin Acetaminophen/ 0 .STK-MED ONE 02/20 2156 DCr Codeine Phosphate PO XRAY/CT/US XRAY/CT/US XRAY forearm, hand XR interpretation by reviewed by me Xray Results no fracture seen Departure Departure Time of Disposition 2157 Disposition DC Home or Self Care(routine) Clinical Impression Primary Impression: Tenosynovitis of forearm Condition STABLE Referrals ARTHUR JOSE (Family) Patient Instructions DI for Tenosynovitis Additional Instructions wear splint and use meds and see pcp for follow up Discharge Counseling Counseled pt/family regarding diagnosis, test results, medications/RX, follow up needs Prescriptions Current Visit Scripts Prednisone (Prednisone 20MG) 20 MG PO BID #10 TAB ED Critical Care Critical Care No at 2154
[2017-02-19] MEDS ORDERED: PREDNISONE 20MG20 MG PO (21:59)
[2017-02-19 22:11] VITALS: BP 137/68
== END 2017-02-19 22:11 | disposition home or self-care (01) ==
LOC: ER 19:20
DX: M65.832 Other synovitis and tenosynovitis, left forearm (principal); I10 Essential (primary) hypertension; J44.9 Chronic obstructive pulmonary disease, unspecified; K21.9 Gastro-esophageal reflux disease without esophagitis; F17.210 Nicotine dependence, cigarettes, uncomplicated